=== PATIENT | female | born 1940 | race Caucasian/White ===

== ENCOUNTER → 2019-09-01 07:50 | Outpatient (CLI) | payer MEDICARE, SELFPAY ==
--- NOTE | ~2019-09-01 | US_ITS ---
EXAMINATION: US right upper quadrant EXAM DATE: 09/01/2019 08:23 INDICATION: Cholelithiasis. TECHNIQUE: Multiple grayscale and Doppler images of the abdomen right upper quadrant were obtained (b y a technologist who performed the scan) and subsequently reviewed. Comparison is made to prior exami nation from 08/19/2012. FINDINGS: The pancreatic head and body are normal in appearance. The pancreatic tail is not visualized. The l iver has normal echogenicity and contour. There is a 1.4 cm homogeneously hyperechoic liver lobe les ion posteriorly and inferiorly, appearance is characteristic for a hemangioma but not diagnostic of t hat. This was actually larger on prior study in 2013 at 1.8 cm. There is no evidence of intrahepatic biliary duct dilation. Portal venous flow was seen in the hepatopedal, normal direction and has nor mal Doppler waveform. No right-sided hydronephrosis. Common bile duct measures 4 mm, which is normal. The gallbladder wall is normal in thickness, with ex pected amount of distention. No sonographic evidence of pericholecystic fluid. There is cholelithia sis. Technologist performing exam reports patient did not demonstrate sonographic Arias's sign. P brooke note that this sign is less reliable in patients who have received pain medication. IMPRESSION: 1. Cholelithiasis. 2. Interval decrease in size of benign liver lesion. Reviewed, dictated and finalized at location B.
== END ==
PROVIDERS: PCP Family Medicine Adolescent Medicine; Visit Provider Family Medicine Adolescent Medicine
DX: K80.20 Calculus of gallbladder without cholecystitis without obstruction (principal)
CPT/HCPCS: 76705

== ENCOUNTER 2019-11-23 13:57 | Outpatient (CLI) | payer MEDICARE, SELFPAY ==
--- NOTE | 2019-11-23 14:02 | ECG_ITS ---
Measurements Intervals Thompson Rate: 73 P: 57 [place]: 139 QRS: 0 QRSD: 89 T: 37 QT: 377 QTc: 417 Interpretive Statements SINUS RHYTHM BASELINE ARTIFACT- I, II, III, AVR, AVL, AVF NORMAL ECG Electronically Signed On 11-23-2019 14:39:05 CDT by Carson Armendariz D.O.
[2019-11-23 15:09] LABS: Alanine Aminotransferase 14 U/L (4-35); Albumin Level 4.2 g/dL (3.5-5.1); Alkaline Phosphatase 69 U/L (38-126); Amylase 94 U/L (30-110); Aspartate Amino Transferase 22 U/L (14-36); Bilirubin,Total 0.4 mg/dL (0.2-1.3); Lipase 182 U/L (23-300)
== END 2019-11-23 13:58 | disposition home or self-care (01) ==
PROVIDERS: PCP Family Medicine Adolescent Medicine; Visit Provider Surgery
DX: K80.20 Calculus of gallbladder without cholecystitis without obstruction (principal); I10 Essential (primary) hypertension
CPT/HCPCS: 36415; 80076; 82150; 83690; 86850; 86900; 86901; 93005

== ENCOUNTER 2019-11-26 00:16 | Outpatient (CLI) | payer MEDICARE, SELFPAY ==
[2019-11-26 15:54] LABS: SARS-CoV-2 RNA PCR Negative
== END 2019-11-26 00:17 | disposition home or self-care (01) ==
LOC: ANHCOVIDDT 00:16
PROVIDERS: PCP Family Medicine Adolescent Medicine; Visit Provider Surgery
DX: Z01.812 Encounter for preprocedural laboratory examination (principal); Z20.828 Contact with and (suspected) exposure to other viral communicable diseases
CPT/HCPCS: 87635; C9803; U0003

== ENCOUNTER 2019-11-29 03:25 | Day surgery (SDC) | payer MEDICARE, SELFPAY ==
[2019-11-22 12:00] VITALS: BMI 27.4
[2019-11-29] VITALS (11 sets, daily range): BP systolic 129–173; BP diastolic 60–83; PULSE 51–73; RESP 13–20; TEMP 36.4–37.2; O2SAT 92–100
--- NOTE | 2019-11-29 12:30 | P.PNAN_ITS ---
Anes - Initial Pre Proc Eval Procedure: Operation Date: 11/29/19 13:30 Proposed Procedures p Laparoscopic Cholecystectomy, Possible Open - Hernan Calderon DO Date/Time: 11/29/19 12:30 Surgeon: Hernan Calderon DO Pre Op Diagnosis: symptomatic cholelithiasis Patient Data Age: 79 Gender: F Height: 5 ft 2 in Weight: 68.5 kg Allergies Allergy/AdvReac Type Severity Reaction Status Date / Time lidocaine Allergy Severe lost Verified 11/22/19 11:51 feeling procaine Allergy Severe lost Verified 11/22/19 11:51 feeling ciprofloxacin Allergy Unknown crawled Verified 11/22/19 11:51 out of skin metronidazole Allergy Unknown Unknown Verified 11/22/19 11:51 Quinolones Allergy Unknown Unknown Verified 11/22/19 11:51 Sulfa (Sulfonamide Allergy Unknown Hives Verified 11/22/19 11:51 Antibiotics) NOVACAINE Allergy Severe unknown Uncoded 11/22/19 11:51 Home Medications Medication Instructions Recorded Confirmed Type bimatoprost 0.01 % eye drops 1 drop EACH EYE HS 09/08/19 11/29/19 History brimonidine 0.2 %-timolol 0.5 % 1 drop LEFTEYE Q12H 09/08/19 11/22/19 History eye drops losartan 50 mg tablet 50 mg PO DAILY 09/08/19 11/22/19 History acetaminophen [Tylenol Extra 500 mg PO BID PRN 11/22/19 11/22/19 History Strength] ascorbic acid (vitamin C) [Vitamin 500 mg PO DAILY 11/22/19 11/22/19 History C] cholecalciferol (vitamin D3) 10 mcg PO DAILY 11/22/19 11/22/19 History Patient hx anesthesia problems: none Family hx anesthesia problems: none [facility] Social History Social History Smoking status: Never smoker Alcohol intake: current Substance use: never Anes - Eval Final PreProcedure Day of Procedure 11/29/19 12:30 Patient weight: normal Heart: regular rate and rhythm Lungs: clear to auscultation Airway: Mallampati scale class II Neurological: alert and oriented Last oral intake: >/= 8 hours ASA classification: II Emergent: no Anesthetic plan: proceed Anesthesia type and monitoring: general ETT and standard monitoring Informed Consent: The patient's anesthetic plan and its attendant risks and benefits were discussed with the patient/family/POA. Questions were solicited and answers provided to the satisfaction of the patient/family/POA.
--- NOTE | 2019-11-29 13:26 | PM.IMHP ---
H&P: HPI History of Present Illness Chief complaint: symptomatic cholelithiasis Narrative: Maria Dolores Rodrigues is a 79 year old female who presents for laparoscopic cholecystectomy. She has been experiencing intermittent symptoms for years. Gallbladder ultrasound showed evidence of cholelithiasis. 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 Family History Family History Father Family history of malignant neoplasm Cancer Mother High cholesterol Other Cerebrovascular accident Family history of cardiovascular disease Hypertension Social History Social History Smoking status: Never smoker Alcohol intake: current Substance use: never Meds Home Medications and Allergies Home Medications Medication Instructions Recorded Confirmed Type bimatoprost 0.01 % eye drops 1 drop EACH EYE HS 09/08/19 11/29/19 History brimonidine 0.2 %-timolol 0.5 % 1 drop LEFTEYE Q12H 09/08/19 11/22/19 History eye drops losartan 50 mg tablet 50 mg PO DAILY 09/08/19 11/22/19 History acetaminophen [Tylenol Extra 500 mg PO BID PRN 11/22/19 11/22/19 History Strength] ascorbic acid (vitamin C) [Vitamin 500 mg PO DAILY 11/22/19 11/22/19 History C] cholecalciferol (vitamin D3) 10 mcg PO DAILY 11/22/19 11/22/19 History Allergies Allergy/AdvReac Type Severity Reaction Status Date / Time lidocaine Allergy Severe lost Verified 11/22/19 11:51 feeling procaine Allergy Severe lost Verified 11/22/19 11:51 feeling ciprofloxacin Allergy Unknown crawled Verified 11/22/19 11:51 out of skin metronidazole Allergy Unknown Unknown Verified 11/22/19 11:51 Quinolones Allergy Unknown Unknown Verified 11/22/19 11:51 Sulfa (Sulfonamide Allergy Unknown Hives Verified 11/22/19 11:51 Antibiotics) NOVACAINE Allergy Severe unknown Uncoded 11/22/19 11:51 Vital Signs Vital Signs - 24 hr 11/29/19 12:30 Temperature 37.2 C Pulse Rate 67 Respiratory Rate 20 Blood Pressure 169/83 H Pulse Oximetry 98 Exam Const: General: alert; No acute distress Orientation/consciousness: patient oriented x3 Limitations: no limitations HENMT: Head: normocephalic and atraumatic Ears: hearing grossly normal bilaterally General nose exam: Normal external nose present and Normal nares present Mouth: Yes Normal oral and palatal mucosa present and Yes moist mucous membranes Eyes: General: appearance normal, both eyes and all related structures Conjunctivae: conjunctivae normal Sclera: sclerae normal Pupils: Equal, round and reactive pupils present EOM: EOMs intact bilaterally Neck: Neck: normal visual inspection, full ROM, no lymphadenopathy, supple and no JVD Lymphatic: no lymphadenopathy noted Chest: Chest palpation & inspection: normal inspection of the chest Resp: Effort & Inspection: normal respiratory effort and able to speak in complete sentences Auscultation: clear to auscultation bilaterally Percussion: percussion normal Cardio: Jugular venous distension: no JVD Rate: regular rate Rhythm: regular rhythm Heart sounds: S1 normal heart sound present and S2 normal heart sound present Peripheral pulses: Peripheral pulses 2+ throughout GI: Inspection: normal to inspection GI Palp: No abdominal tenderness, Yes Soft to palpation, No Guarding due to palpation present (GI), No Hernia present and No Rebound tenderness present Percussion: Yes normal to percussion Auscultation: normal bowel sounds : General: Yes no CVA tenderness Back/Spine/Pelvis: Back
[2019-11-29] MEDS: LACTATED RINGERS 1,000 ML 30 ML IV CONT (14:23)
--- NOTE | 2019-11-29 14:28 | PM.PROC ---
Procedure Note - Detailed Date of procedure: 11/29/19 Pre-op diagnosis: symptomatic cholelithiasis Post-op diagnosis: same Procedure performed: Laparoscopic Cholecystectomy Description of procedure: Procedure as well as risks, benefits, and alternatives were discussed with patient. Written consent was obtained and placed in chart prior to procedure. The patient was brought back to surgical suite. Patient was placed in supine position on operating table. Time-out was done to confirm patient and procedure. Patient was then intubated by the anesthesia department. Abdomen was prepped and draped in sterile fashion using chlorhexidine prep. 0.5% bupivacaine with epinephrine was infiltrated at each site of incision. A 5 millimeter incision was made near the umbilicus, and a 5 millimeter Optiview trocar was advanced through the abdominal layers under direct visualization. Once inside the abdominal cavity, carbon dioxide was insufflated to create a pneumoperitoneum. The camera was inserted and the abdomen was inspected. No immediate abnormalities were identified. The patient was placed in reverse Trendelenburg position and rotated slightly to the left. An 11 millimeter incision was made in the subxiphoid region, and an 11 millimeter trocar was inserted under direct visualization. Two 5 millimeter incisions were made in the right upper quadrant, and two 5 millimeter trocars were inserted under direct visualization. The gallbladder was identified and grasped at the fundus and retracted superiorly. It was then grasped at the infundibulum retracted laterally. Careful dissection around the neck of the gallbladder was performed using blunt dissection with a [place] grasper and hook electrocautery. The cystic duct was identified, and a window was created behind it. The cystic artery was also identified and a window was created behind it. The critical view of safety was identified, visualizing the cystic duct running directly into the neck of the gallbladder, and the cystic artery running directly into the wall of the gallbladder. A 5 millimeter clip security operations center analyst was then used to place 2 clips proximally and 1 clip distally on both the cystic duct and cystic artery. They were then both transected using endoscopic scissors. Once safely away from the tomy hepatitis, the gallbladder was dissected free from the liver bed using hook electrocautery. Hemostasis was achieved along the way. The gallbladder was removed completely and then removed through the subxiphoid port. The liver bed was then inspected. Hemostasis appeared adequate, and our clips appeared secure. The area was gently irrigated with sterile saline. No other abnormalities were seen. The patient was flattened out in bed, and 1 final inspection was made around the abdominal cavity. The subxiphoid port was removed, and a Jt [place] cone was used to approximate the fascia with an 0-Vicryl simple interrupted suture. The remaining ports were then removed under direct visualization, the camera was removed, and the pneumoperitoneum was released. The skin of the incisions was approximated using 4-0 Monocryl subcuticular sutures. Exofin glue was applied on top. The patient was then awakened from anesthesia, extubated, and transferred to recovery. Anesthesia: GETA and local (0.5% bupivicaine with epi) Surgeon: Hernan Calderon DO Estimated blood loss (mL): 5 Drains: No Packing: No Pathology: yes Complications: No immediate complications Condition: stable (Patient tolerated procedure well, and is currently resting comfortably in recovery.) Disposition: same day Findings: Laparoscopic cholecystectomy was performed. The gallbladder appeared dilated and contained multiple 1 cm stones. Cystic duct appeared normal in size. The gallbladder was removed and sent to the lab for pathology.
== END 2019-11-29 17:24 | disposition home or self-care (01) ==
PROVIDERS: PCP Family Medicine Adolescent Medicine; Visit Provider Surgery
PROC: 0FT44ZZ Resection of Gallbladder, Percutaneous Endoscopic Approach (ICD-10-PCS; CPT 47562; principal; 2019-11-29 13:30)
DX: K80.10 Calculus of gallbladder with chronic cholecystitis without obstruction (principal); I10 Essential (primary) hypertension; E78.00 Pure hypercholesterolemia, unspecified
CPT/HCPCS: 47562; 88304; A9270; J0131; J1100; J2405; J2704; J2710; J3010; J7030; J7120

== ENCOUNTER → 2020-05-11 12:00 | Outpatient (CLI) | payer MEDICARE, SELFPAY ==
--- NOTE | ~2020-05-11 | US_ITS ---
EXAMINATION: US soft tissue head and neck DATE: 05/11/2020 12:18 INDICATION: Left neck focal swelling and pain. TECHNIQUE: Multiple grayscale and Doppler ultrasound images of the neck were obtained. COMPARISON: None FINDINGS: There is no abnormal mass or lymphadenopathy in the patient's area of concern in left neck. IMPRESSION: 1. No abnormal mass or lymphadenopathy in the patient's area of concern in left neck. Reviewed, dictated and finalized at [facility]
== END ==
PROVIDERS: PCP Family Medicine Adolescent Medicine; Visit Provider Family Medicine Adolescent Medicine
DX: R51.9 Headache, unspecified (principal)
CPT/HCPCS: 76536

== ENCOUNTER 2021-02-12 20:53 | Emergency (ER) | payer MEDICARE, SELFPAY ==
--- NOTE | ~2021-02-12 | CT_ITS ---
EXAMINATION: CT abdomen pelvis wo con DATE: 02/12/2021 23:56 INDICATION: Abdominal pain TECHNIQUE: Computed tomography (CT) of the abdomen and pelvis was performed without intravenous contr ast. Automated exposure control and iterative reconstruction technique were employed. Exam dose: 464 .74 mGy-cm total exam DLP. COMPARISON: 09/01/2019 right upper quadrant abdominal ultrasound 07/22/2015 [facility]A chest abdomen pelvis 07/19/2011 CT abdomen pelvis FINDINGS: The lung bases are clear of infiltrate or consolidation. Normal heart size. No pericardial or pleural effusion. Status post cholecystectomy. Stable subtle hypoattenuating lesion of the medial aspect of the right lower hepatic lobe, previously attributed to hemangioma (07/22/2015 [facility] chest abdomen pelvis). No interval hepatic space-occupying m ass lesion is detected. No bile duct or pancreatic duct dilatation. No pancreatic mass lesion or calc ification. Duodenal diverticulum. Scattered splenic calcified granulomas. No splenomegaly. Parapelvic left renal cysts Parapelvic left renal cysts. No urinary tract calculus or obstruction. The urinary bladder is unremar kable. Uterus and adnexal areas are unremarkable. There is atherosclerotic calcification of the abdominal aorta but no aneurysm. No intraperitoneal or retroperitoneal or pelvic mass lesion or adenopathy or ascites. Diverticulosis of the colon; no CT evidence of diverticulitis. There are fluid containing small bowel segments. There are colonic air-fluid levels, which is not normal unless there have been any recent enemas. No bowel obstruction, bowel wall thickening, pneumatosis or intraperitoneal free air is detec thierry. Small fat-containing umbilical hernia. Scoliosis and degenerative changes of the lumbar spine including multilevel degenerative disc disease , especially at L2-3, L4-5 and L5-S1. Degenerative change at the apophyseal joints with associated gr salome 1 anterolisthesis at L4-5. IMPRESSION: Fluid-filled small bowel segments and air-fluid levels of the colon, suggesting enteroco litis Normal appendix Diverticulosis of the colon; no CT evidence of diverticulitis Status post cholecystectomy Stable probable right hepatic hemangioma Reviewed, dictated and finalized at [facility]. Reviewed, dictated and finalized at [facility]. IMPRESSION: Fluid-filled small bowel segments and air-fluid levels of the colo n, suggesting enterocolitis Normal appendix Diverticulosis of the colon; no CT evidence of diverticulitis Status post cholecystectomy Stable probable right hepatic hemangioma
[2021-02-12 21:03] VITALS: BP 165/98; PULSE 79; RESP 16; TEMP 36.9; O2SAT 98
[2021-02-12 21:51] LABS: Basophils Percent Auto 0.4 % (0.2-1.2); Eosinophils Absolute Auto 0.1 K/mm3 (0-0.3); Eosinophils Percent Auto 0.8 % (0-4.4); Hematocrit 47.8 % (37.0-47.0); Hemoglobin 15.5 g/dL (12.0-15.0); Immature Granulocyte Absolute 0.02 K/mm3 (0.00-0.031); Immature Granulocyte Percent A 0.2 % (0-0.5); Lymphocytes Absolute Auto 1.25 K/mm3 (0.9-3.2); Lymphocytes Percent Auto 13.8 % (18.3-44.2); Mean Corpuscular HGB Conc 32.4 g/dl (32-36); Mean Corpuscular Hemoglobin 29.9 pg (26-34); Mean Corpuscular Volume 92.1 fl (80-100); Monocytes Absolute Auto 0.4 K/mm3 (0.1-0.6); Monocytes Percent Auto 3.9 % (2.6-8.5); Neutrophils Absolute Auto 7.4 K/mm3 (1.3-6.7); Neutrophils Percent Auto 80.9 % (45.5-73.1); Platelet Count Result 255 k/mm3 (150-375); Red Blood Count 5.19 M/mm3 (4.2-5.4); Red Cell Distribution Width 12.6 % (11.5-14.5); White Blood Count 9.1 K/mm3 (4.5-10.0)
[2021-02-12 22:03] LABS: Alanine Aminotransferase 23 U/L (4-35); Albumin Level 4.5 g/dL (3.5-5.1); Alkaline Phosphatase 65 U/L (38-126); Anion Gap 11 mmol/L (8-16); Aspartate Amino Transferase 31 U/L (14-36); Bilirubin,Total 0.6 mg/dL (0.2-1.3); Blood Urea Nitrogen 11 mg/dL (7-17); Calcium 9.6 mg/dL (8.4-10.2); Carbon Dioxide 25 mmol/L (22-30); Chloride 104 mmol/L (98-107); Estimated CRCL calculation 57 ml/min; Estimated Glomerular Filt Rate > 60; Glucose 109 mg/dL (65-110); Lipase 203 U/L (23-300); Potassium 4.2 mmol/L (3.4-5.0); Sodium 140 mmol/L (137-145)
[2021-02-12 22:15] LABS: Add Urine Microscopic? YES; Appearance Urine Clear (Clear); Bilirubin Urine Negative (Negative); Blood Urine 1+ (Negative); Color Urine Colorless (Yellow); Glucose Urine UA Negative (Negative); Ketones Urine Negative (Negative); Leukocyte Esterase Ur Trace LEU/UL (Negative); Mucus Urine Rare /lpf; Nitrate Urine Negative (Negative); Protein Urine Negative (Negative); RBC Urine 0-2 /hpf (0-2); Squamous Epithelial Cell Urine Occasional /hpf (Few); Transitional Epi Cells Urine Rare /hpf (None Seen); Urobilinogen Urine Negative mg/dL (<2.0); WBC Urine 0-3 /hpf
[2021-02-12 22:16] LABS: Specific Grav Ur 1.003 (1.001-1.035)
[2021-02-12 23:01] VITALS: BP 162/89; PULSE 88; RESP 16; O2SAT 98
--- NOTE | 2021-02-12 23:35 | ED.ABDPAIN ---
HPI - Abdominal Pain General Chief Complaint: Abdominal Pain Stated Complaint: no bowel movement for 10 days Time Seen by Provider: 02/12/21 23:30 Source: patient Mode of arrival: ambulatory Limitations: no limitations History of Present Illness HPI narrative: Patient is an 80-year-old female complaining of being constipated for the past 10 days, patient did have a bowel movement tonight but states that it was all loose. Patient also complaining of diffuse abdominal pain, mild which she attributes to her constipation. Patient denies any chest pain, shortness of breath, nausea, vomiting, fever or chills. Related Data Home Medications Medication Instructions Recorded Confirmed bimatoprost 0.01 % eye drops 1 drop EACH EYE HS 09/08/19 12/31/19 brimonidine 0.2 %-timolol 0.5 % 1 drop LEFTEYE Q12H 09/08/19 12/31/19 eye drops losartan 50 mg tablet 50 mg PO DAILY 09/08/19 12/31/19 acetaminophen [Tylenol Extra 500 mg PO BID PRN 11/22/19 12/31/19 Strength] ascorbic acid (vitamin C) [Vitamin 500 mg PO DAILY 11/22/19 12/31/19 C] cholecalciferol (vitamin D3) 10 mcg PO DAILY 11/22/19 12/31/19 Allergies Allergy/AdvReac Type Severity Reaction Status Date / Time lidocaine Allergy Severe lost Verified 02/12/21 23:08 feeling procaine Allergy Severe lost Verified 02/12/21 23:08 feeling ciprofloxacin Allergy Unknown crawled Verified 02/12/21 23:08 out of skin metronidazole Allergy Unknown Unknown Verified 02/12/21 23:08 Quinolones Allergy Unknown Unknown Verified 02/12/21 23:08 Sulfa (Sulfonamide Allergy Unknown Hives Verified 02/12/21 23:08 Antibiotics) NOVACAINE Allergy Severe unknown Uncoded 02/12/21 23:08 Review of Systems Review of Systems: All systems reviewed & are unremarkable except as noted in HPI and below Constitutional: Constitutional: Denies body ache(s), Denies chills, Denies excessive sweating, Denies fatigue, Denies fever(s), Denies headache(s), Denies lethargy, Denies malaise, Denies weakness and Denies weight loss Eyes: Eyes: Denies blurry vision, Denies change in vision and Denies loss of vision ENT: Denies dizziness, Denies ear discharge, Denies headache(s), Denies lip swelling, Denies epistaxis, Denies nasal congestion, Denies neck pain, Denies throat swelling and Denies tongue swelling Cardiovascular: Cardiovascular: Denies chest pain, Denies chest pain at rest, Denies chest pain with activity, Denies diaphoresis, Denies rapid heart rate, Denies edema, Denies irregular heart rhythm, Denies lightheadedness, Denies palpitations, Denies dyspnea and Denies dyspnea on exertion Respiratory: Respiratory: Denies chest congestion, Denies cough, Denies hemoptysis, Denies dyspnea and Denies dyspnea on exertion Gastrointestinal: Gastrointestinal: Denies melena, Denies hematochezia, Denies diarrhea, Denies nausea, Denies vomiting and Denies hematemesis Musculoskeletal: Musculoskeletal: Denies abnormal gait, Denies deformity, Denies joint swelling, Denies limited range of motion, Denies neck pain and Denies numbness Neurologic: Denies Abnormal speech present, Denies abnormal gait, Denies confusion, Denies dizziness, Denies headache(s), Denies focal weakness, Denies loss of vision, Denies numbness, Denies Other visual disturbances, Denies Sensory deficit (Neuro) and Denies weakness Psychiatric: Psychiatric: Denies confusion, Denies depression, Denies auditory hallucinations, Denies homicidal ideation and Denies suicidal ideation Endocrine: Endocrine: Denies cold intolerance, Denies excessive sweating, Denies fatigue, Denies heat intolerance and Denies palpitations Hematologic/Lymphatic: Hematologic/Lymphatic: Denies easy bleeding and Denies easy bruising Allergic/Immunologic: Allergic/Immunologic: Denies lip swelling, Denies throat swelling and Denies tongue swelling [facility] Past Medical History Medical History (Updated 02/13/21 @ 01:15 by Travis Charles MD) High blood cholesterol HTN (hypertens
--- NOTE | 2021-02-12 23:45 | PC.NURSE ---
Pt to CT via stretcher at this time.
[2021-02-13] MEDS: SODIUM CHLORIDE 0.9% IV 1,000 ML 999 ML IV CONT (00:12)
[2021-02-13 00:33] VITALS: BP 162/84; PULSE 66; RESP 16; O2SAT 99
[2021-02-13 01:46] VITALS: BP 159/90; PULSE 72; RESP 16; O2SAT 100
== END 2021-02-13 01:49 | disposition home or self-care (01) ==
PROVIDERS: Emergency Medicine; Emergency Provider Emergency Medicine; PCP Family Medicine Adolescent Medicine
DX: K52.9 Noninfective gastroenteritis and colitis, unspecified (principal); K59.00 Constipation, unspecified; E78.00 Pure hypercholesterolemia, unspecified; I10 Essential (primary) hypertension; K57.90 Diverticulosis of intestine, part unspecified, without perforation or abscess without bleeding; R93.2 Abnormal findings on diagnostic imaging of liver and biliary tract
CPT/HCPCS: 36415; 74176; 80053; 81001; 83690; 85025; 96360; 99284; J7030

== ENCOUNTER 2021-02-16 13:27 | Observation (INO) | payer MEDICARE, SELFPAY ==
[2021-02-16] VITALS (9 sets, daily range): BP systolic 102–176; BP diastolic 58–91; PULSE 63–78; RESP 14–16; TEMP 36–37.2; O2SAT 98–100; BMI 26.9
--- NOTE | ~2021-02-16 | XR_ITS ---
EXAMINATION: XR chest 2V EXAM DATE: 02/16/2021 13:50 INDICATION: Central sharp chest pain. TECHNIQUE: Frontal and lateral projections of the chest obtained and reviewed. Comparison is made to prior examination from 09/12/2018. FINDINGS: The lungs are clear. There are no pleural effusions. The cardiomediastinal silhouette is within normal limits. There is no pneumothorax suspected. The bones and soft tissues are unremarkab le. . There are cholecystectomy clips. IMPRESSION: No acute cardiopulmonary findings. Reviewed, dictated and finalized at location A.
--- NOTE | 2021-02-16 13:38 | ECG_ITS ---
Measurements Intervals [place] Rate: 77 P: 28 WI: 144 QRS: 1 QRSD: 89 T: 32 QT: 368 QTc: 417 Interpretive Statements SINUS RHYTHM NORMAL ECG Electronically Signed On 02-16-2021 14:07:29 CDT by Carson Armendariz D.O.
[2021-02-16] MEDS: ASPIRIN 81 MG CHEWABLE TABLET 324 MG PO (14:04)
--- NOTE | 2021-02-16 14:12 | ED.CHESTPAIN ---
HPI - Chest Pain General Chief Complaint: Chest Pain Stated Complaint: CP Time Seen by Provider: 02/16/21 13:49 Source: patient, family and RN notes reviewed Limitations: no limitations History of Present Illness HPI narrative: Patient is 80 years old white female presented to the ED with her complaining of intermittent left chest pain, sharp, tender to touch, radiating all the way to the mid of upper back. Started 45 minutes prior to arrival to the emergency room. Patient was in her way to a . Patient lost her [place] dog 3 weeks ago. Patient had constipation 1 week ago been taken MiraLAX and Senokot lately with increase of bowel movement lately. Patient denies any fever, chills, nausea, vomiting, diarrhea, constipation, shortness of breath. Patient is fully vaccinated for COVID-19. Patient had history of hypertension. Related Data Home Medications Medication Instructions Recorded Confirmed bimatoprost 0.01 % eye drops 1 drop EACH EYE HS 09/08/19 12/31/19 brimonidine 0.2 %-timolol 0.5 % 1 drop LEFTEYE Q12H 09/08/19 12/31/19 eye drops losartan 50 mg tablet 50 mg PO DAILY 09/08/19 12/31/19 acetaminophen [Tylenol Extra 500 mg PO BID PRN 11/22/19 12/31/19 Strength] ascorbic acid (vitamin C) [Vitamin 500 mg PO DAILY 11/22/19 12/31/19 C] cholecalciferol (vitamin D3) 10 mcg PO DAILY 11/22/19 12/31/19 Allergies Allergy/AdvReac Type Severity Reaction Status Date / Time lidocaine Allergy Severe lost Verified 02/16/21 13:45 feeling procaine Allergy Severe lost Verified 02/16/21 13:45 feeling ciprofloxacin Allergy Unknown crawled Verified 02/16/21 13:45 out of skin metronidazole Allergy Unknown Unknown Verified 02/16/21 13:45 Quinolones Allergy Unknown Unknown Verified 02/16/21 13:45 Sulfa (Sulfonamide Allergy Unknown Hives Verified 02/16/21 13:45 Antibiotics) NOVACAINE Allergy Severe unknown Uncoded 02/16/21 13:45 Review of Systems Review of Systems: CONSTITUTIONAL: Denies fever, chills, or sweats. EYES: Denies visual changes, redness, or discharge. ENT: Denies rhinorrhea, congestion, sore throat, or otalgia. CARDIOVASCULAR: Denies chest pain, palpitations, or edema. RESPIRATORY: Denies cough or dyspnea. GASTROINTESTINAL: Denies abdominal pain, nausea, vomiting, or diarrhea. GENITOURINARY: Denies dysuria or hematuria. SKIN: Denies rash or itching. MUSCULOSKELETAL: Denies back pain, joint pain, or myalgia. NEUROLOGIC: Denies headache, numbness, or weakness. PSYCHIATRIC: Denies anxiety or depression. [facility] Past Medical History Medical History (Updated 02/16/21 @ 14:23 by Olegario Turner MD) High blood cholesterol HTN (hypertension) Surgical History Surgical History H/O knee surgery History of laparoscopic cholecystectomy 11/29/19 Tumor of ovary removed in her 20s Family History Family History Father Family history of malignant neoplasm Cancer Mother High cholesterol Other Cerebrovascular accident Family history of cardiovascular disease Hypertension Social History Social History Smoking status: Never smoker Alcohol intake: current Substance use: never Gender identity (if verbalized by the patient): Female Exam Narrative: General appearance: Well-developed, well-nourished Skin: Normal color Head: Normocephalic, nontraumatic Eyes: Clear conjunctiva ENT: Oropharynx normal, ears normal, nose normal Neck: Supple, nontender Chest and respiratory: Airway patent, no respiratory distress, no accessory muscle use Heart: Regular rate/rhythm Abdomen: Soft, nontender, no organomegaly, quiet bowel sounds Vascular: Normal peripheral pulses, normal capillary refill. Musculoskeletal: Normal range of motion, nontender back Neurologic: Alert and oriented ?3, NUTRITION SERVICES MANAGER is normal as tested, no gross marita
[2021-02-16 14:41] LABS: Basophils Percent Auto 0.4 % (0.2-1.2); Eosinophils Absolute Auto 0.1 K/mm3 (0-0.3); Hemoglobin 14.6 g/dL (12.0-15.0); Immature Granulocyte Absolute 0.04 K/mm3 (0.00-0.031); Immature Granulocyte Percent A 0.4 % (0-0.5); Lymphocytes Absolute Auto 0.99 K/mm3 (0.9-3.2); Mean Corpuscular HGB Conc 33.2 g/dl (32-36); Mean Corpuscular Hemoglobin 30.4 pg (26-34); Mean Corpuscular Volume 91.5 fl (80-100); Mean Platelet Volume 9.9 fl (7.4-10.4); Monocytes Absolute Auto 0.4 K/mm3 (0.1-0.6); Monocytes Percent Auto 4.5 % (2.6-8.5); Neutrophils Absolute Auto 7.5 K/mm3 (1.3-6.7); Neutrophils Percent Auto 82.7 % (45.5-73.1); Platelet Count Result 217 k/mm3 (150-375); Red Blood Count 4.81 M/mm3 (4.2-5.4); Red Cell Distribution Width 12.3 % (11.5-14.5)
[2021-02-16 14:50] LABS: Prothrombin Time 12.7 Seconds (11.1-14.7)
[2021-02-16 14:51] LABS: Partial Thromboplastin Time 27.9 SECONDS (22.3-36.8)
[2021-02-16 14:52] LABS: Anion Gap 7 mmol/L (8-16); Blood Urea Nitrogen 10 mg/dL (7-17); Calcium 9.5 mg/dL (8.4-10.2); Carbon Dioxide 29 mmol/L (22-30); Chloride 96 mmol/L (98-107); Estimated CRCL calculation 57 ml/min; Estimated Glomerular Filt Rate > 60; Glucose 108 mg/dL (65-110); Potassium 3.9 mmol/L (3.4-5.0); Sodium 132 mmol/L (137-145)
[2021-02-16 15:04] LABS: Troponin I < 0.012 ng/mL (0.000-0.034)
--- NOTE | 2021-02-16 15:09 | PM.IMHP ---
H&P: HPI History of Present Illness Date/Time: 02/16/21 15:09Thiiveth is a 80-year-old female patient who has no prior history of any coronary artery disease. The patient stated that she had a stress test many years ago and it was negative. The patient was checked out for chest pain in 2019 and was found to be negative at that time. Today the patient was on her way to a for her [place]. The patient lost her [place] 3 weeks ago and she has been heart broken since. The patient's chest pain started 45 minutes prior to arrival to the emergency room. The pain only lasted for few seconds and it came and went. Did not radiate down her arm but it radiated to her upper back. She denies any diaphoresis or nausea vomiting. The patient has reproducible pain to her mid sternum. She has also been complaining of having constipation for the last week and a half. She has tried multiple laxatives since still is having difficulty having a normal bowel movement. The patient had very small bowel movement yesterday x3. The patient is fully vaccinated for COVID-19. The patient has a history of having hypertension and continues to take her medication without difficulty. First troponin is negative. EKG was read as sinus rhythm normal EKG. Patient is being admitted for observation status on 02/16/2021. Chief Complaint: Chest pain Review of Systems Review of Systems: All systems reviewed & are unremarkable except as noted in HPI and below Constitutional: Constitutional: Reports as per HPI and Reports no additional constitutional complaints Eyes: Eyes: Reports as per HPI and Reports no additional eye complaints ENT: Reports system reviewed and no additional complaints, except as documented and Reports Normal hearing present Cardiovascular: Cardiovascular: Reports no additional cardiovascular complaints Respiratory: Respiratory: Reports no additional respiratory complaints and Reports no additional respiratory complaints Gastrointestinal: Gastrointestinal: Reports as per HPI and Reports no additional gastrointestinal complaints Musculoskeletal: Musculoskeletal: Reports no additional musculoskeletal complaints Integumentary/Breasts: Skin/Breast: Reports system reviewed and no additional complaints, except as docu and Reports as per HPI Neurologic: Reports system reviewed and no additional complaints, except as documented, Reports as per HPI and Reports Normal hearing present Psychiatric: Psychiatric: Reports no additional psychiatric complaints and Reports as per HPI Endocrine: Endocrine: Reports no additional endocrine complaints Hematologic/Lymphatic: Hematologic/Lymphatic: Reports no additional hematologic/lymphatic complaints Allergic/Immunologic: Allergic/Immunologic: Reports no additional allergic/immunologic complaints PMFSH Past Medical History Medical History (Updated 02/16/21 @ 15:19 by Gloria Chawla NP) Glaucoma High blood cholesterol HTN (hypertension) Surgical History Surgical History H/O knee surgery History of laparoscopic cholecystectomy 11/29/19 Tumor of ovary removed in her 20s Family History Family History Father Family history of malignant neoplasm Cancer Mother High cholesterol Other Cerebrovascular accident Family history of cardiovascular disease Hypertension Social History Social History (Updated 02/16/21 @ 15:14 by Gloria Chawla NP) Social History: The patient is and her is a durable power civil rights attorney for healthcare. The patient has 3 sons. She is listed as a full code. 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 Lifelong nonsmoker. She is alert alcohol or illicit drugs. Smoking status: Never smoker Alcohol intake: current Substance use: never Living arrangements: with family Occupation/Education: retired Gender identity (if
[2021-02-16] MEDS: METOPROLOL SUCCINATE EXT REL 25 MG TABCR PO (15:27)
[2021-02-16] MEDS: BISACODYL 10 MG SUPPOSITORY RECTAL (15:32)
--- NOTE | 2021-02-16 16:41 | ADMGEN ---
This patient, Maria Dolores Rodrigues, was admitted to IMU Room 202- at 1639 on 02/16/2021. Patient/family oriented to hospital policies and general routines including ID bracelet, bed and alarms, visiting hours, pain management, procedures, bathroom and other care routines, personal items, smoking policy, room service/diet, and visiting hours. Information on how to activate the Rapid Response Team has been discussed. Patient/Family are encouraged to report perceived risks to care and to ask questions if they do not understand what they are told or what they should do.
[2021-02-16 17:35] LABS: Troponin I < 0.012 ng/mL (0.000-0.034)
[2021-02-16 19:38] LABS: Troponin I < 0.012 ng/mL (0.000-0.034)
[2021-02-16 19:39] LABS: Troponin I < 0.012 ng/mL (0.000-0.034)
--- NOTE | 2021-02-16 22:50 | PHAR ---
Home eye drops: COMBIGAN (brimonidine tartrate 0.2% / timolol maleate 0.5%) opthalmic solution 1 drop in left eye q12hr and Lumigan (brimatoprost opthalmic solution) 0.01% 1 DROP IN EACH EYE HS Verified in pharmacy and sent back to floor(IMU) for patient use.
[2021-02-17] VITALS (14 sets, daily range): BP systolic 97–152; BP diastolic 61–81; PULSE 56–77; RESP 16–18; TEMP 36.2–36.9; O2SAT 98–100
[2021-02-17 08:19] LABS: Basophils Percent Auto 0.5 % (0.2-1.2); Eosinophils Absolute Auto 0.2 K/mm3 (0-0.3); Hematocrit 44.9 % (37.0-47.0); Hemoglobin 14.6 g/dL (12.0-15.0); Immature Granulocyte Absolute 0.02 K/mm3 (0.00-0.031); Immature Granulocyte Percent A 0.3 % (0-0.5); Lymphocytes Absolute Auto 1.26 K/mm3 (0.9-3.2); Lymphocytes Percent Auto 16.6 % (18.3-44.2); Mean Corpuscular HGB Conc 32.5 g/dl (32-36); Mean Corpuscular Hemoglobin 29.8 pg (26-34); Mean Corpuscular Volume 91.6 fl (80-100); Mean Platelet Volume 10.2 fl (7.4-10.4); Monocytes Absolute Auto 0.3 K/mm3 (0.1-0.6); Neutrophils Absolute Auto 5.8 K/mm3 (1.3-6.7); Neutrophils Percent Auto 76.6 % (45.5-73.1); Platelet Count Result 243 k/mm3 (150-375); Red Cell Distribution Width 12.6 % (11.5-14.5); White Blood Count 7.6 K/mm3 (4.5-10.0)
[2021-02-17 08:42] LABS: Alanine Aminotransferase 21 U/L (4-35); Albumin Level 4.2 g/dL (3.5-5.1); Alkaline Phosphatase 59 U/L (38-126); Anion Gap 7 mmol/L (8-16); Aspartate Amino Transferase 30 U/L (14-36); Bilirubin,Total 0.5 mg/dL (0.2-1.3); Blood Urea Nitrogen 9 mg/dL (7-17); Calcium 9.1 mg/dL (8.4-10.2); Carbon Dioxide 27 mmol/L (22-30); Chloride 104 mmol/L (98-107); Estimated CRCL calculation 58 ml/min; Estimated Glomerular Filt Rate > 60; Glucose 132 mg/dL (65-110); Magnesium 2.3 mg/dL (1.6-2.3); Potassium 3.8 mmol/L (3.4-5.0); Sodium 138 mmol/L (137-145)
[2021-02-17] MEDS: ENOXAPARIN 40 MG/0.4 ML SYRINGE SUB-Q (08:45)
[2021-02-17] MEDS: ASCORBIC ACID 500 MG TABLET PO (08:49)
[2021-02-17] MEDS: polyethylene glycoL 3350 17 GM POWD.PACK PO ×2 (08:53→13:30)
[2021-02-17] MEDS: CHOLECALCIFEROL 400 UNITS TABLET (VIT D) PO (08:54)
[2021-02-17] MEDS: LOSARTAN POTASSIUM 50 MG TABLET PO (08:55)
[2021-02-17] MEDS: ASPIRIN 81 MG CHEWABLE TABLET PO (08:55)
--- NOTE | 2021-02-17 09:08 | ECG_ITS ---
Measurements Intervals [place] Rate: 65 P: 60 WY: 158 QRS: 1 QRSD: 88 T: 27 QT: 386 QTc: 402 Interpretive Statements SINUS RHYTHM NORMAL ECG Electronically Signed On 02-17-2021 9:38:44 CDT by Carson Armendariz D.O.
--- NOTE | 2021-02-17 11:02 | PM.IMPN ---
Progress Note: A&P Assessment and Plan (1) Chest pain: Qualifiers: Chest pain type: unspecified Qualified Code(s): R07.9 - Chest pain, unspecified Code(s): R07.9 - Chest pain, unspecified Status: Acute Assessment and Plan: Unclear etiology. Patient has negative troponin x2, and nonischemic EKG, indicating low level of suspicion for ACS. No history of blood clots, no hypoxia, or lower leg swelling, and Wells score is 0, so minimal suspicion for pulmonary embolism. No infectious symptoms or leukocytosis. Pain is not reproducible, lowering suspicion for a costochondritis. Not associated with food or other GI symptoms. Blood pressure, low acuity, nonradiating pain, intermittent in nature, all making dissection less likely. Distant heart sounds on auscultation, and diffuse concave ST elevation on EKG, raising suspicion for pericarditis. Appreciate Cardiology input. (2) HTN (hypertension): Code(s): I10 - Essential (primary) hypertension Status: Chronic Assessment and Plan: Continue with losartan. (3) Glaucoma: Code(s): H40.9 - Unspecified glaucoma Status: Chronic Assessment and Plan: Continue with home eye drops. (4) Constipation: Code(s): K59.00 - Constipation, unspecified Status: Acute Assessment and Plan: Suppository now and continue with MiraLax. (5) Hemangioma: Code(s): D18.00 - Hemangioma unspecified site Status: Acute Assessment and Plan: Right hepatic hemangioma seen on abdominal CT, will need outpatient follow-up. And potentially serial imaging. Time Spent With Patient Time with patient: less than 15 minutes Subjective Date/time seen: 02/17/21 11:02 No acute medical complaints, complains of intermittent sharp chest pain, not reproducible on physical exam. Review of Systems Review of Systems: All systems reviewed & are unremarkable except as noted in HPI and below Exam Const: General: no acute distress Neck: Neck: no JVD Resp: Auscultation: clear to auscultation bilaterally Cardio: Rate: regular rate Rhythm: regular rhythm Other: Distant heart sounds Objective Data Vital Signs Vital Signs: Vital Signs - 24 hr 02/16/21 13:40 02/16/21 15:01 02/16/21 15:27 Temperature 98.2 F Pulse Rate 78 73 78 Respiratory Rate 16 16 Blood Pressure 176/91 H 154/83 H Pulse Oximetry 100 100 02/16/21 16:31 02/16/21 16:51 02/16/21 18:00 Temperature 99 F Pulse Rate 78 71 73 Respiratory Rate 16 14 Blood Pressure 148/76 H 146/75 H Pulse Oximetry 100 98 02/16/21 20:00 02/16/21 22:00 02/16/21 23:49 Temperature 97.6 F 96.8 F L Pulse Rate 73 68 69 Respiratory Rate 16 16 Blood Pressure 132/71 102/58 L Pulse Oximetry 99 100 02/17/21 00:00 02/17/21 02:00 02/17/21 04:00 Temperature 97.2 F L Pulse Rate 67 64 75 Respiratory Rate 16 Blood Pressure 108/68 Pulse Oximetry 100 99 02/17/21 06:00 02/17/21 08:00 02/17/21 08:52 Temperature 97.4 F L Pulse Rate 62 64 61 Respiratory Rate 16 Blood Pressure 97/61 L Pulse Oximetry 98 02/17/21 10:00 Temperature Pulse Rate 74 Respiratory Rate Blood Pressure Pulse Oximetry Intake/Output Intake/Output: Intake & Output 02/14/21 02/15/21 02/16/21 02/17/21 23:59 23:59 23:59 23:59 Intake Total 240 240 Output Total 700 Balance 240 -460 Meds/Results Medications: Active Medications Generic Name Dose Route Start Last Admin Trade Name Freq PRN Reason Stop Dose Admin Ascorbic Acid 500 mg 02/17/21 09:00 02/17/21 08:49 Ascorbic Acid 500 Mg Tablet PO 500 mg DAILY [facility] Administration Aspirin 81 mg 02/17/21 08:00 02/17/21 08:55 Aspirin 81 Mg Chewable Tablet PO 81 mg DAILY@0800 [facility] Administration Bisacodyl 10 mg 02/16/21 15:06 Bisacodyl 10 Mg Suppository RECTAL QAM PRN Constipation Enoxaparin Sodium 40 mg 02/17/21 09:00 02/17/21 08:45 Enoxaparin 40 Mg/0.4
--- NOTE | 2021-02-17 11:02 | PM.CNCAR ---
Assessment and Plan Additional Plan This is an 80-year-old woman with momentary brief episodes of jabbing chest pain yesterday. The symptoms are very atypical of and in my opinion not at all suggestive of myocardial ischemia. She has no exertional symptoms to suggest angina leading up to this and there is no evidence of acute coronary syndrome by ECG and serial biomarkers. At this point I do not believe any further cardiac investigation is necessary and for my perspective she can be discharged. I will not plan on arranging outpatient follow-up of this since it is very atypical. Thank you for asking me to see her in consultation. Bola Sepulveda MD [facility] History of Present Illness History of Present Illness Consult date/time: 02/17/21 11:02 Consult reason: chest pain Reason For Visit: chest pain Narrative: This is a pleasant 80-year-old lady that I am seeing this morning at the request of the hospitalist for assistance with the evaluation and management of chest pain. She is not known to have any cardiac problems prior to this and I have not seen her in the past as far as I know. She was on her way to the of a cousin yesterday afternoon when she began to experience episodes of chest pain she had a couple more of these episodes at the home and so she was brought to the hospital by her for evaluation. She describes these episodes as a brief momentary jabbing sensation in the left precordial area that at times would cause a momentary jabbing sensation in the thoracic spinal region as well. Symptoms were very momentary in brief there were not associated with any pressure heaviness on the chest there were not associated by any diaphoresis nausea vomiting or shortness of breath. The pain was very brief and momentary in nature. She came to the emergency room where her examination, ECG and troponin levels were negative. Despite all of that in the very atypical history she was admitted to the hospital for observation overnight. She has had 3- troponin samples done. Her telemetry is negative and follow-up ECGs this morning remain normal. She does not have any a history of exertional chest pain she does not exercise with any regularity but she does lead an active lifestyle and has never noticed exertional chest pain pressure or heaviness. She had a [place] dog which a couple of weeks ago but prior to that she had walker dog with regularity and she did not have any chest pain with activities like that. Review of Systems Constitutional: Constitutional: Reports no additional constitutional complaints Eyes: Eyes: Reports no additional eye complaints ENT: Reports system reviewed and no additional complaints, except as documented Cardiovascular: Cardiovascular: Reports as per HPI Respiratory: Respiratory: Reports no additional respiratory complaints Gastrointestinal: Gastrointestinal: Reports as per HPI Comments: Patient reports recent did difficulty with worsening of chronic constipation Musculoskeletal: Musculoskeletal: Reports no additional musculoskeletal complaints Neurologic: Reports system reviewed and no additional complaints, except as documented Endocrine: Endocrine: Reports no additional endocrine complaints Hematologic/Lymphatic: Hematologic/Lymphatic: Reports no additional hematologic/lymphatic complaints Allergic/Immunologic: Allergic/Immunologic: Reports no additional allergic/immunologic complaints [facility] Past Medical History Medical History (Updated 02/16/21 @ 15:19 by Gloria Chawla NP) Glaucoma High blood cholesterol HTN (hypertension) Surgical History Surgical History H/O knee surgery History of laparoscopic cholecystectomy 11/29/19 Tumor of ovary removed in her 20s Family History Family History Father Family history of malignant neoplasm Cancer Mother High milan
[2021-02-17] MEDS: BISACODYL 10 MG SUPPOSITORY RECTAL (15:15)
[2021-02-17] MEDS: LACTULOSE 20 GM/30 ML UDC 40 GM PO (17:39)
--- NOTE | 2021-02-17 18:47 | PC.NURSE ---
This patient, Maria Dolores Rodrigues, was transferred to [ [id number] ] on 02/17/21 at 1840. Personal belongings sent with patient. Report given to [ MAURICE Topete. ]. Appropriate documentation sent with patient.
[2021-02-17] MEDS: NAPROXEN 250 MG TABLET PO (21:49)
[2021-02-18] VITALS: PULSE 63
--- NOTE | 2021-02-18 00:03 | PM.DS ---
DS: Admitting Diagnosis Admitting Diagnosis chest pain DS: Discharge Diagnosis Discharge Diagnosis (1) Constipation: Code(s): K59.00 - Constipation, unspecified Status: Acute (2) Hemangioma: Code(s): D18.00 - Hemangioma unspecified site Status: Acute DS: Summary Hospital Course Hospital Course: 80 yo lady without ACS in history presenting with chest pain. Atypiclal in nature - not exertional or pressure like. Moderately severe pain, not exacerbated by any trigger, feels sharp, and last only a few seconds. Not associated by food. No fevers, diaphroesis, n/v. EKG nonichschemic, troponin negative, seen by smoking tobacco cutter operator - advised that pain not likely to be cardiac. Per patient, she sometimes feels this pain when she has not had a bowel movement for an extended period of time. In this case, has been over [address] abdomen not showing obstruction, and patient was passing gas. Tried several medications, but in the end lactulose induced bowel movement and patient's pain and discomfort resolved. Send home with bowel regimen and close PCP folow up. Status at Discharge Functional status at discharge: uses cane/walker Overall status at discharge: patient is progressing back to baseline Time Spent with Patient Time attestation: Total time spent providing and/or coordinating discharge services: Time spent: Less than 30 minutes Exam Const: General: no acute distress Neck: Neck: no JVD Resp: Effort & Inspection: normal respiratory effort Auscultation: clear to auscultation bilaterally Cardio: Rate: regular rate Rhythm: regular rhythm GI: GI Palp: Yes Soft to palpation and No Tenderness to palpation present (GI) Discharge Plan Discharge Attending physician on discharge: Annalise Reed Consulting providers: Ren Gann ; Gloria Chawla ; Jorgito Etienne ; Bola Sepulveda ; Carson Armendariz Discharging Clinician: Annalise Reed Anticipated Discharge Date/Time: 02/18/21 11:54 Patient Disposition: Home, Self-Care Activity: may shower, no straining and as tolerated Diet: heart healthy, low cholesterol and high fiber Patient Instructions: Antibiotic Form, Chest Pain (DC), Constipation (DC) Stand Alone Forms: General Discharge Information Follow-up/Referrals: Mihai Wray MD [Primary Care Provider] - Discharge Medications: New aspirin [Children's Aspirin] 81 mg Tablet,Chewable 81 mg PO DAILY@0800 Qty: 30 RF: 0 polyethylene glycol 3350 [Miralax] 17 gram/dose powder 17 g PO BID PRN (Reason: constipation) Qty: 119 RF: 0 Continued losartan 50 mg tablet 50 mg PO DAILY RF: 0 Lumigan 0.01 % drops 1 drop EACH EYE HS RF: 0 Combigan 0.2-0.5 % drops 1 drop LEFTEYE Q12H RF: 0 ascorbic acid (vitamin C) [Vitamin C] 500 mg Tablet 500 mg PO DAILY RF: 0 cholecalciferol (vitamin D3) 10 mcg (400 unit) Tablet 10 mcg PO DAILY RF: 0 Discontinued naproxen sodium 275 mg Tablet 275 mg PO HS RF: 0 Date of admission: 02/16/21 14:40 Primary Care Provider: Mihai Wray Admitting Provider: Ramírez Saenz Attending physician on admission: Annalise Reed Condition: Stable Quality VTE Prophylaxis VTE prophylaxis: pharmacologic ordered
[2021-02-18 04:00] VITALS: PULSE 61
[2021-02-18 06:00] VITALS: BP 132/76; PULSE 65; RESP 18; TEMP 35.9; O2SAT 96
[2021-02-18 06:12] LABS: Basophils Absolute Auto 0.1 K/mm3 (0.0-0.1); Basophils Percent Auto 0.6 % (0.2-1.2); Eosinophils Absolute Auto 0.2 K/mm3 (0-0.3); Eosinophils Percent Auto 2.5 % (0-4.4); Hemoglobin 13.5 g/dL (12.0-15.0); Immature Granulocyte Absolute 0.03 K/mm3 (0.00-0.031); Immature Granulocyte Percent A 0.4 % (0-0.5); Lymphocytes Percent Auto 23.6 % (18.3-44.2); Mean Corpuscular HGB Conc 32.1 g/dl (32-36); Mean Corpuscular Hemoglobin 29.4 pg (26-34); Mean Corpuscular Volume 91.5 fl (80-100); Mean Platelet Volume 10.5 fl (7.4-10.4); Monocytes Absolute Auto 0.6 K/mm3 (0.1-0.6); Monocytes Percent Auto 7.6 % (2.6-8.5); Neutrophils Absolute Auto 5.3 K/mm3 (1.3-6.7); Neutrophils Percent Auto 65.3 % (45.5-73.1); Platelet Count Result 217 k/mm3 (150-375); Red Blood Count 4.59 M/mm3 (4.2-5.4); Red Cell Distribution Width 12.6 % (11.5-14.5)
[2021-02-18 06:34] LABS: Alanine Aminotransferase 24 U/L (4-35); Albumin Level 3.6 g/dL (3.5-5.1); Alkaline Phosphatase 51 U/L (38-126); Anion Gap 7 mmol/L (8-16); Aspartate Amino Transferase 30 U/L (14-36); Bilirubin,Total 0.5 mg/dL (0.2-1.3); Blood Urea Nitrogen 9 mg/dL (7-17); Calcium 8.6 mg/dL (8.4-10.2); Carbon Dioxide 26 mmol/L (22-30); Chloride 104 mmol/L (98-107); Estimated CRCL calculation 58 ml/min; Estimated Glomerular Filt Rate > 60; Glucose 89 mg/dL (65-110); Magnesium 2.1 mg/dL (1.6-2.3); Phosphorus 3.9 mg/dL (2.5-4.5); Potassium 3.6 mmol/L (3.4-5.0); Sodium 137 mmol/L (137-145)
[2021-02-18 08:00] VITALS: PULSE 70
[2021-02-18] MEDS: ASPIRIN 81 MG CHEWABLE TABLET PO (08:55)
[2021-02-18] MEDS: LOSARTAN POTASSIUM 50 MG TABLET PO (08:56)
[2021-02-18] MEDS: BISACODYL 10 MG SUPPOSITORY RECTAL (08:56)
[2021-02-18] MEDS: CHOLECALCIFEROL 400 UNITS TABLET (VIT D) PO (08:56)
[2021-02-18] MEDS: ASCORBIC ACID 500 MG TABLET PO (08:57)
[2021-02-18] MEDS: LACTULOSE 20 GM/30 ML UDC 40 GM PO (08:57)
[2021-02-18] MEDS: ENOXAPARIN 40 MG/0.4 ML SYRINGE SUB-Q (08:57)
[2021-02-18 12:00] VITALS: PULSE 70
== END 2021-02-18 14:25 | disposition home or self-care (01) ==
LOC: ANHED 14:23 → ANH3MEDSUR 02-18 10:38 → ANHIMU 02-20 13:51
PROVIDERS: Emergency Medicine; Admitting Provider Internal Medicine; Emergency Provider Emergency Medicine; PCP Family Medicine Adolescent Medicine; Visit Provider Internal Medicine
DX: K59.00 Constipation, unspecified (principal); D18.00 Hemangioma unspecified site; R07.89 Other chest pain; I10 Essential (primary) hypertension; H40.9 Unspecified glaucoma
CPT/HCPCS: 36415; 71046; 80048; 80053; 83735; 84100; 84484; 85025; 85610; 85730; 93005; 96372; 99285; A9270; G0378; J1650

== ENCOUNTER 2021-05-21 01:24 | Day surgery (SDC) | payer MEDICARE, SELFPAY ==
[2021-05-16 14:41] VITALS: BMI 27.6
--- NOTE | 2021-05-16 14:48 | PC.NURSE ---
Report to the Outpatient Waiting Room, entrance under the green pavilion located off [facility], at time _1200__ on date _05/21/21___. OR Time: _2 PM___. - You and your visitor will be asked a series of questions to screen for COVID 19 for your protection. - A mask is required within the hospital. - Only one visitor is allowed at this time. Patient visitors will be guided where to wait when not with patient. Preoperative COVID Testing Requirements: No COVID Test needed if: (proof is required; if not received patient will have Rapid Test prior to entry) - Patient has received COVID Vaccine at least 14 days prior to procedure date or - Patient has positive COVID test result within last 90 days of surgery date. COVID Test needed if above criteria is not met If not COVID vaccinated a COVID test must be conducted within 72 hours of surgery and patient is asked to isolate self from time of testing until procedure. You will go to the [facility] for your COVID testing. The [facility] site is located at the corner of [address] [facility]. You will only be called if COVID results are positive and your surgeon may reschedule your elective surgery date. Patients may have clear liquids (water, carbonated beverages, clear teas, apple juice) until 3 hours prior to surgery (1100 AM) with a maximum of 20 ounces. - No food from midnight until time of surgery - Infants may have breast milk until 4 hours before surgery, formula 6 hours prior to surgery. - Children will be allowed to drink immediately following surgery. If applicable, please bring a bottle or sippy cup to assist with drinking. Juice, water, soda, and popsicles are readily available. For infants on formula, please bring formula the day of surgery. Pacifiers are allowed. Take the following medications with a SIP of water the morning of surgery: __EYE DROPS Medications to discontinue per physician VIT D & C Date to take last dose 05/17/21 Please no make-up, nail lithuanian, hairspray, perfume, deodorant, or body powder the day of surgery. No jewelry (including any body piercings) or valuables the day of surgery, leave them at home. Please take a shower or bath the night before, or the morning of, surgery with an antibacterial soap. Wear comfortable, loose fitting clothing. Children are encouraged to wear pajamas. - Jewelry must be removed prior to entering the operating room. Rings and piercings that are not removed may be cut off. - The hospital will not accept responsibility for valuables. - Please leave all valuables, including medications, at home the day of surgery. If you are going home after surgery, a licensed trackless trolley driver must drive you home. - NO public transportation without another adult. - We recommend that an adult stay with you for 24 hours following discharge. - We also recommend that you do not drive, make important decision, drink alcoholic beverages, or take any drugs that were not prescribed by your health care provider for at least 24 hours after your discharge time. For Pediatric surgeries, we recommend two adults accompany the child home (only one inside the building at this time). Follow any additional instructions given to you from your surgeon. Telephone instructions given to ____PT and asked if any additional questions and then verbalized understanding. Patient advised to call surgeon office or pre surgery nurse liaison [phone] if any additional questions.
[2021-05-21] VITALS (14 sets, daily range): BP systolic 113–153; BP diastolic 69–89; PULSE 60–77; RESP 13–16; TEMP 36.3–36.7; O2SAT 98–100
[2021-05-21] MEDS: LACTATED RINGERS 1,000 ML 30 ML IV CONT (12:41)
--- NOTE | 2021-05-21 13:32 | WPDANESEPPF ---
Anes - Initial Pre Proc Eval Procedure: Operation Date: 05/21/21 14:00 Proposed Procedures p Excision Recently Infected Epidermal Cyst Right Posterior Neck - sIh Calles MD Date/Time: 05/21/21 13:32 Surgeon: Ish Calles MD Pre Op Diagnosis: infected epidermal cyst right posterior neck Patient Data Age: 80 Gender: F Height: 1.57 m Weight: 68.7 kg Last Vital Signs Temp 36.3 C L 05/21/21 12:01 Pulse 70 05/21/21 12:01 Resp 16 05/21/21 12:01 BP 139/78 05/21/21 12:01 Pulse Ox 100 05/21/21 12:01 Allergies Allergy/AdvReac Type Severity Reaction Status Date / Time procaine Allergy Severe Difficulty Verified 05/21/21 12:14 Breathing-Novocain Sulfa (Sulfonamide Allergy Intermediate Hives Verified 05/21/21 12:14 Antibiotics) ciprofloxacin Allergy Mild crawled Verified 05/21/21 12:14 out of skin metronidazole Allergy Mild JETTERY, Verified 05/21/21 12:14 WANTS TO CRAW OUT OF HER SKIN Quinolones Allergy Mild JETTERY, Verified 05/21/21 12:14 WANTS TO CRAWL OUT OF HER SKIN lidocaine AdvReac Severe lost Verified 05/21/21 12:14 feeling Home Medications Medication Instructions Recorded Confirmed Type bimatoprost 0.01 % eye drops 1 drop EACH EYE HS 09/08/19 05/21/21 History brimonidine 0.2 %-timolol 0.5 % 1 drop LEFTEYE Q12H 09/08/19 05/21/21 History eye drops losartan 50 mg tablet 50 mg PO QAM 09/08/19 05/21/21 History ascorbic acid (vitamin C) [Vitamin 500 mg PO DAILY 11/22/19 05/21/21 History C] cholecalciferol (vitamin D3) 10 mcg PO DAILY 11/22/19 05/21/21 History amoxicillin-pot clavulanate 1 tablet BID 05/16/21 05/21/21 History acetaminophen [Tylenol] 325 mg PO ONCE PRN 05/21/21 05/21/21 History Patient hx anesthesia problems: none Family hx anesthesia problems: none Results Review: All pre-operative results and documents have been reviewed as part of the pre-operative evaluation. [facility] Past Medical History Medical History GERD (gastroesophageal reflux disease) Glaucoma High blood cholesterol HTN (hypertension) Surgical History Surgical History H/O knee surgery History of laparoscopic cholecystectomy 11/29/19 Tumor of ovary removed in her 20s Family History Family History Father Family history of malignant neoplasm Cancer Mother High cholesterol Other Cerebrovascular accident Family history of cardiovascular disease Hypertension Social History Social History Social History: The patient is and her is a durable power right of way cutter for healthcare. The patient has 3 sons. She is listed as a full code. 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 Lifelong nonsmoker. She is alert alcohol or illicit drugs. Smoking status: Never smoker Second hand tobacco smoke exposure: No Alcohol intake: current Alcohol use details: STATES MAYBE 1-2/MONTH Substance use: never Substance use type: does not use Living arrangements: with family Gender identity (if verbalized by the patient): Female Spiritual care concerns: No Anes - Eval Final PreProcedure Day of Procedure 05/21/21 13:32 Patient weight: overweight Heart: regular rate and rhythm Lungs: clear to auscultation Airway: Mallampati scale class II Neurological: alert and oriented Last oral intake: >/= 8 hours ASA classification: III Emergent: no Anesthetic plan: proceed Anesthesia type and monitoring: general LMA and standard monitoring Results Review: All pre-operative results and documents have been reviewed as part of the pre-operative evaluation. Informed Consent: The patient's anesthetic plan and its attendant risks and benefits were discussed with the patient/family/PO
--- NOTE | 2021-05-21 13:36 | WPDHPUPDATE1 ---
History and Physical Update Update Date/Time: 05/21/21 13:36 History and Physical has been reviewed, including an updated exam of the patient. There are changes in the patient's condition. Patient has noticed that the lesion has gotten slightly smaller and occasionally draining some bloody fluid. Risks, benefits, and alternatives Of general anesthesia ) because patient claims severe allergy to 2 kinds of local anesthetic) and excision of a suspected recently infected epidermal cyst have been discussed and questions answered. Patient agrees to proceed with procedure.
[2021-05-21] MEDS: ceFAZolin 2 GM/D5W 50 ML 2 GM/50 ML BAG IVPB (13:48)
[2021-05-21] MEDS: fentaNYL CITRATE INJ (*CRX) 100 MCG/2 ML VIAL 25 MCG IV PUSH ×6 (15:25→15:54)
--- NOTE | 2021-05-21 16:33 | W.PM.PROC2 ---
Procedure Note - Detailed Date of Procedure 05/25/21 Pre-op Diagnosis infected epidermal cyst right posterior neck Post-op Diagnosis same Procedure Performed Excision of skin lesion right posterior neck Surgeon Ish Calles MD [employer] Specialist MAURICE James, OR 1st assist Anesthesia general ( general via LMA) Indications The patient has a reported allergy to both amide and arabella local anesthetics. therefore over the weekend she was treated with antibiotics. She is having perhaps slight bleeding but no purulent drainage from the suspected infected epidermal cyst on the posterior neck. Therefore, I recommended complete excision under general anesthesia to rid her of this problem leaving her an exchange for a scar in the area. She knows that if we run into infection we may need to leave the wound partially open or close it knowing she has an increased risk of wound infection and continue antibiotics. No matter what we will continue try to prevent problems by having her take antibiotics for about 4 more days after surgery. Findings Normal appearing fat surrounding the excised skin and subcutaneous lesion. I did not run into any purulence. Description of Procedure The patient was placed in the left lateral decubitus position. After a surgical time out confirming patient and procedure the patient was prepped and draped in the usual sterile fashion. Because of her allergy we did not use any local anesthetic. The lesion measured approximately 2 cm in diameter and was nearly a perfect [place]. I outlined a transverse elliptical excision on the skin with an indelible ink marker.. An elliptical incision was made around the lesion with a #15. scalpel blade taking a thin margin circumferentially. I dissected down to the deep subcutaneous tissues mostly with needlepoint Bovie cautery and then completely excised the lesion. Bleeding was controlled with electrocautery. The wound was closed in two layers. Some un-dyed 3-0 Vicryl deep dermal and one centrally located deep subcutaneous sutures were used to approximate the subcutaneous tissues and then a 4-0 undyed Monocryl running subcuticular skin closure was completed. incision measured approximately 4.5 cm transversely at the end of closure. Surgical glue applied as dressing. Patient tolerated this well. Estimated blood loss was approximately 5 cc. Implants none Estimated Blood Loss 5 Drains No Packing No Pathology yes ( an ellipse of skin and subcutaneous tissue containing a suspected infected epidermal cyst that has not ruptured.) Complications No immediate complications Condition stable Disposition PACU
[2021-05-21] MEDS: oxyCODONE HCL (*CRX) 2.5 MG TAB IR PO (17:11)
== END 2021-05-21 17:55 | disposition home or self-care (01) ==
PROVIDERS: PCP Family Medicine Adolescent Medicine; Visit Provider Surgery
PROC: (CPT 11422; principal; 2021-05-21 14:00)
DX: L72.0 Epidermal cyst (principal); L08.9 Local infection of the skin and subcutaneous tissue, unspecified; K21.9 Gastro-esophageal reflux disease without esophagitis; E78.00 Pure hypercholesterolemia, unspecified; I10 Essential (primary) hypertension; Z79.82 Long term (current) use of aspirin
CPT/HCPCS: 11422; 12042; 88304; A9270; J0690; J1100; J2405; J2704; J3010; J7120

== ENCOUNTER 2021-11-04 04:06 | Observation (INO) | payer MEDICARE, SELFPAY ==
[2021-11-04] VITALS (38 sets, daily range): BP systolic 107–180; BP diastolic 64–108; PULSE 74–104; RESP 13–24; TEMP 36.7–37.3; O2SAT 93–99; BMI 27.5
--- NOTE | ~2021-11-04 | CT_ITS ---
EXAMINATION: CTA chest abdomen pelvis DATE: 11/04/2021 07:09 INDICATION: Chest pain radiating to back and lower extremities. TECHNIQUE: Computed tomography (CT) of the chest, abdomen, and pelvis was performed with 100 CC Omnip aque 300 intravenous contrast. Automated exposure control and iterative reconstruction technique were employed. Exam dose: 788.81 mGy-cm total exam DLP. COMPARISON: 11/04/2021 portable AP chest 02/12/2021 CT abdomen pelvis FINDINGS: CHEST CT: No thoracic aortic aneurysm or dissection. Mild thoracic aortic arch calcification. Normal heart size . No pericardial or pleural effusion. No hilar or mediastinal mass lesion or lymphadenopathy. No pulmonary infiltrate or consolidation or pulmonary mass lesion. ABDOMEN/PELVIS CT: Status post cholecystectomy. No bile duct or pancreatic duct dilatation. There is diffuse hepatic steatosis. No hepatic, splenic, pancreatic, adrenal or renal space occupyin g mass lesion. There is nonspecific fullness of the left renal collecting structures. No urinary tract calculus or hydroureteronephrosis otherwise. Normal appendix. There is diverticulosis of the colon; no evidence of diverticulitis. No bowel obst ruction or free air. No abdominal aortic aneurysm. Calcified atherosclerotic plaque is noted. No intraperitoneal or retrop eritoneal or pelvic mass lesion or lymphadenopathy. No ascites. There is degenerative change of the thoracic and lumbar spine. No suspicious osteolytic or osteoblas tic lesions. IMPRESSION: No thoracic or abdominal aortic aneurysm or dissection Status post cholecystectomy Hepatic steatosis Diverticulosis of the colon; no CT evidence of diverticulitis Reviewed, dictated and finalized at [facility]. Reviewed, dictated and finalized at [facility].
--- NOTE | ~2021-11-04 | CT_ITS ---
EXAMINATION: CT lumbar spine wo con DATE: 11/04/2021 20:39 INDICATION: Low back pain. TECHNIQUE: Computed tomography (CT) of the lumbar spine was performed without intravenous contrast. A utomated exposure control and iterative reconstruction technique were employed. The dose-length produ ct was 794.80 mGy-cm. COMPARISON: None FINDINGS: Lumbar scoliosis. Partial left L5-S1 sacralization was pseudoarthrosis formation. Vertebral body heights are maintained. Multilevel disc narrowing and marginal osteophytosis, most severe at L4 -5 and L5-S1. Multilevel severe lumbar facet arthropathy. No pars defects. Multilevel severe bilatera l neural foraminal narrowing. Severe central canal narrowing at L2-3, L3-4, and L4-5. IMPRESSION: 1. No acute fracture or traumatic malalignment in the lumbar spine. 2. Severe degenerative disc disease and facet arthropathy contribute to multilevel severe neural fora kait and central canal narrowing. Reviewed, dictated and finalized at location [facility]. IMPRESSION: 1. No acute fracture or traumatic malalignment in the lumbar spine. 2. Severe degenerative disc disease and facet arthropathy contribute to multile dwayne severe neural foraminal and central canal narrowing.
--- NOTE | ~2021-11-04 | MR_ITS ---
EXAMINATION: MR lumbar spine wo con DATE: 11/05/2021 17:35 INDICATION: Central canal narrowing . TECHNIQUE: Magnetic resonance imaging (MRI) of the lumbar spine was performed without intravenous con trast. Sequences included sagittal T2-weighted FSE, sagittal T2-weighted FS FSE, sagittal T1-weighted FSE, and axial T2-weighted FSE. COMPARISON: None FINDINGS: The last fully formed and hydrated disc is designated L5-S1. The marrow signal is benign an d homogenous. Conus terminates at L1-L2. 4 mm anterolisthesis of L4 on L5. Multilevel disc narrowing and dehydration. Nerve root clumping and stretching. Left parapelvic cyst. The following disc levels are specifically discussed: T11-T12: The disc does not extend beyond the endplate margin. There is mild facet joint osteoarthriti s. There is no neural foraminal stenosis. There is no central canal stenosis. T12-L1: Moderate diffuse bulge. There is mild facet joint osteoarthritis. There is mild bilateral inf erior neural foraminal stenosis. There is no central canal stenosis. L1-L2: Moderate diffuse bulge. There is moderate facet joint osteoarthritis. There is mild bilateral inferior neural foraminal stenosis. There is mild central canal stenosis. L2-L3: Severe diffuse bulge There is severe facet joint osteoarthritis. There is moderate right neura l foraminal stenosis. There is moderate central canal stenosis. L3-L4: Severe diffuse bulge. There is severe facet joint osteoarthritis. There is moderate right neur al foraminal stenosis. There is moderate central canal stenosis. L4-L5: Severe diffuse bulge. There is severe facet joint osteoarthritis. There is severe right neural foraminal stenosis There is cortical central canal stenosis. Thecal sac is narrowed to a maximum AP diameter of 4 mm. L5-S1: Severe diffuse bulge. There is moderate facet joint osteoarthritis. There is moderate bilatera l neural foraminal stenosis. There is no central canal stenosis. IMPRESSION: 1. Critical central canal stenosis at L4-5. 2. Severe right neural foraminal narrowing at L4-5. 3. Lumbar adhesive arachnoiditis. 4. Degenerative grade 1 anterolisthesis of L4 on L5. 5. Multilevel mild and moderate degrees of neural foraminal and central canal stenosis detailed above . Reviewed, dictated and finalized at location [facility]. IMPRESSION: 1. Critical central canal stenosis at L4-5. 2. Severe right neural foraminal narrowing at L4-5. 3. Lumbar adhesive arachnoiditis. 4. Degenerative grade 1 anterolisthesis of L4 on L5. 5. Multilevel mild and moderate degrees of neural foraminal and central canal s tenosis detailed above.
--- NOTE | ~2021-11-04 | XR_ITS ---
XR chest 1V portable DATE: 11/04/2021 05:11 INDICATION: Chest pain radiating to back TECHNIQUE: Portable AP chest on 11/04/2021 at 0506 hours COMPARISON: 8212/2020 PA and lateral chest FINDINGS: Normal heart size. No hilar or mediastinal enlargement. No pulmonary infiltrate or consolid ation, pleural effusion or pulmonary vascular congestion or pneumothorax. Osteopenia. Dextroscoliosis of the thoracic spine. Surgical clips, right upper quadrant, consistent with cholecystectomy. IMPRESSION: No active cardiopulmonary disease This examination is not sensitive for detection of aortic dissection; CTA thorax examination with IV contrast material should be considered for such purpose. Reviewed, dictated and finalized at location [facility]. IMPRESSION: No active cardiopulmonary disease This examination is not sensitive for detection of aortic dissection; CTA thora x examination with IV contrast material should be considered for such purpose.
--- NOTE | 2021-11-04 04:16 | ECG_ITS ---
Measurements Intervals [place] Rate: 79 P: -3 HI: 131 QRS: -10 QRSD: 98 T: 28 QT: 399 QTc: 458 Interpretive Statements SINUS RHYTHM BASELINE ARTIFACT- I, III, AVL NORMAL ECG Electronically Signed On 11-04-2021 7:47:03 CDT by Carson Armendariz D.O.
[2021-11-04 06:08] LABS: Basophils Absolute Auto 0.1 K/mm3 (0.0-0.1); Basophils Percent Auto 0.6 % (0.2-1.2); Eosinophils Absolute Auto 0.1 K/mm3 (0-0.3); Eosinophils Percent Auto 1.2 % (0-4.4); Hematocrit 46.6 % (37.0-47.0); Hemoglobin 15.4 g/dL (12.0-15.0); Immature Granulocyte Absolute 0.03 K/mm3 (0.00-0.031); Immature Granulocyte Percent A 0.3 % (0-0.5); Lymphocytes Absolute Auto 1.23 K/mm3 (0.9-3.2); Lymphocytes Percent Auto 13.8 % (18.3-44.2); Mean Corpuscular Hemoglobin 30.1 pg (26-34); Mean Corpuscular Volume 91.2 fl (80-100); Mean Platelet Volume 10.3 fl (7.4-10.4); Monocytes Absolute Auto 0.4 K/mm3 (0.1-0.6); Monocytes Percent Auto 4.7 % (2.6-8.5); Neutrophils Absolute Auto 7.1 K/mm3 (1.3-6.7); Neutrophils Percent Auto 79.4 % (45.5-73.1); Platelet Count Result 247 k/mm3 (150-375); Red Blood Count 5.11 M/mm3 (4.2-5.4); Red Cell Distribution Width 12.5 % (11.5-14.5); White Blood Count 8.9 K/mm3 (4.5-10.0)
[2021-11-04 06:32] LABS: Alanine Aminotransferase 25 U/L (6-35); Albumin Level 4.6 g/dL (3.5-5.1); Alkaline Phosphatase 59 U/L (38-126); Anion Gap 10 mmol/L (8-16); Aspartate Amino Transferase 43 U/L (14-36); Bilirubin,Total 0.8 mg/dL (0.2-1.3); Blood Urea Nitrogen 14 mg/dL (7-17); Calcium 9.2 mg/dL (8.4-10.2); Carbon Dioxide 25 mmol/L (22-30); Chloride 103 mmol/L (98-107); Estimated Glomerular Filt Rate > 60; Glucose 77 mg/dL (65-110); Sodium 138 mmol/L (137-145)
[2021-11-04 06:38] LABS: Troponin I < 0.012 ng/mL (0.000-0.034)
--- NOTE | 2021-11-04 07:25 | PC.NURSE ---
patient report received from MAURICE Mera. All questions answered and care of patient assumed. Patient resting comfortably in bed with no distress. Reports minimal chest pain at 1/10 at this time. Continues to c/o lower back pain at 3/10. VSS at this time. Awaiting imaging results and further plan. Call light within reach and at bedside.
[2021-11-04 08:16] LABS: Troponin I < 0.012 ng/mL (0.000-0.034)
[2021-11-04 08:28] LABS: Prothrombin Time 13.1 Seconds (11.1-14.7)
--- NOTE | 2021-11-04 08:37 | PC.NURSE ---
Dr. Villafuerte at bedside to assess patient.
--- NOTE | 2021-11-04 08:58 | ED.CHESTPAIN ---
HPI - Chest Pain General Chief Complaint: Chest Pain <Kadi Chauhan MD - Last Filed: 11/04/21 21:08> Stated Complaint: Chest, upper back, neck pain <Kadi Chauhan MD - Last Filed: 11/04/21 21:08> Time Seen by Provider: 11/04/21 04:15 <Kadi Chauhan MD - Last Filed: 11/04/21 21:08> History of Present Illness HPI narrative: 81-year-old female presenting with sudden onset chest pain that woke her up at night, she states that it seems to come from her back to her chest and started after she tried to roll over, she states is quite excruciating, different from chest pain she has had in the past, she states that the pain also seems to go up to her head and down to her feet. Also felt some nausea. No numbness or tingling anywhere. <Kadi Chauhan MD - Last Filed: 11/04/21 21:08> Related Data Home Medications: Home Medications Medication Instructions Recorded Confirmed bimatoprost 0.01 % eye drops 1 drop EACH EYE HS 09/08/19 11/04/21 brimonidine 0.2 %-timolol 0.5 % 1 drop LEFTEYE Q12H 09/08/19 11/04/21 eye drops ascorbic acid (vitamin C) [Vitamin 500 mg PO DAILY 11/22/19 11/04/21 C] cholecalciferol (vitamin D3) 10 mcg PO DAILY 11/22/19 11/04/21 acetaminophen [Tylenol] 325 mg PO ONCE PRN 05/21/21 11/04/21 <Kadi Chauhan MD - Last Filed: 11/04/21 21:08> Allergies/Adverse Reactions: Allergies Allergy/AdvReac Type Severity Reaction Status Date / Time procaine Allergy Severe Difficulty Verified 11/04/21 10:16 Breathing-Novocain Sulfa (Sulfonamide Allergy Intermediate Hives Verified 11/04/21 10:16 Antibiotics) ciprofloxacin Allergy Mild crawled Verified 11/04/21 10:16 out of skin metronidazole Allergy Mild JETTERY, Verified 11/04/21 10:16 WANTS TO CRAW OUT OF HER SKIN Quinolones Allergy Mild JETTERY, Verified 11/04/21 10:16 WANTS TO CRAWL OUT OF HER SKIN lidocaine AdvReac Severe lost Verified 11/04/21 10:16 feeling <Kadi Chauhan MD - Last Filed: 11/04/21 21:08> Review of Systems Review of Systems: CONST: No fever. HEENT: No sore throat C/V: chest pain RESP: Difficulty breathing GI: Reports abdominal pain, nausea : No dysuria. M/S: Back pain SKIN: No rash. NEURO: [No focal numbness or weakness] PSYCH: [No depression] <Kadi Chauhan MD - Last Filed: 11/04/21 21:08> [facility] Past Medical History Medical History: Medical History (Updated 11/04/21 @ 15:08 by Shannan Valle PA-C) Allergy history, anesthetic Encounter for surgical aftercare following surgery on the skin and subcutaneous tissue GERD (gastroesophageal reflux disease) High blood cholesterol HTN (hypertension) Infected sebaceous cyst of skin Normal colonoscopy 12/03 Repeat 12/13 <Kadi Chauhan MD - Last Filed: 11/04/21 21:08> Surgical History Surgical History: Surgical History H/O knee surgery History of excision of lesion Excision of skin lesion right posterior neck 05/21/21 History of laparoscopic cholecystectomy 11/29/19 Tumor of ovary removed in her 20s <Kadi Chauhan MD - Last Filed: 11/04/21 21:08> Family History Family History: Family History Father Family history of malignant neoplasm Cancer Mother High cholesterol Other Cerebrovascular accident Family history of cardiovascular disease Hypertension <Kadi Chauhan MD - Last Filed: 11/04/21 21:08> Social History Social History: Social History (Updated 11/04/21 @ 15:11 by Shannan Valle PA-C) Social History: Ms. Rodrigues lives at home with her and is independent in her daily activities. Her PCP is Dr. Trammell. 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 She designates her as her surrogate decision maker and would like to be a full code. Smoking status: Never smoker Second hand tobacco smoke exposure: No [place]co
[2021-11-04] MEDS: HEPARIN SODIUM 5,000 UNITS/ML VIAL 4500 UNITS IV PUSH (09:27)
[2021-11-04] MEDS: HEPARIN SOD/D5W 100 UNITS/ML 25,000 UNITS/250 ML BAG 10 UNITS IV CONT (09:47)
[2021-11-04 10:22] LABS: SARS-CoV-2 RNA PCR Negative
--- NOTE | 2021-11-04 12:03 | ADMGEN ---
This patient, Maria Dolores Rodrigues, was admitted to IMU Room 206-01. Patient/family oriented to hospital policies and general routines including ID bracelet, bed and alarms, visiting hours, pain management, procedures, bathroom and other care routines, personal items, smoking policy, room service/diet, and visiting hours. Information on how to activate the Rapid Response Team has been discussed. Patient/Family are encouraged to report perceived risks to care and to ask questions if they do not understand what they are told or what they should do.
--- NOTE | 2021-11-04 14:53 | PM.IMHP ---
H&P: HPI History of Present Illness Date/Time: 11/04/21 14:53 Chief Complaint: Chest pain Narrative: Date of service: 11/04/2021 Maria Dolores Rodrigues is 81-year-old female with a history of hypertension, hyperlipidemia, and GERD who presented to the emergency department on 11/04/2021 from home with complaints of chest pressure radiating from below her breast to her back. She stated last night before bed around 11:00 p.m. she had been feeling some discomfort in her back. She got to try to see if repositioning would help and she had a jolt of pain going down her back and up to her head. She had a ?funny feeling? in her neck that she cannot describe. This settled into some lower sternal/epigastric discomfort that radiated through to the back. Did not have associated sweats, dizziness, lightheadedness. She also notes some discomfort in the right shoulder but this improves with positional changes. She denies any cardiac history but notes that she has been evaluated for pain similar to this with a negative workup. Her main concern at this time is the pain in her back which is mostly concentrated in the lower lumbar region. This has been present for some time. She did physical therapy for this several months ago with improvement but now her symptoms have worsened. She has difficulty bending over and doing activities she typically enjoys. She denies any issues with ambulation. She does complain of tingling in her feet comes and goes intermittently for several months as well. Denies saddle anesthesia, loss of bowel or bladder control. The pain does not wake her at night. She denies headache or confusion. She denies acid reflux/heartburn symptoms. Denies blood in her stools. She did endorse belching with the onset of her pain. Denies any significant stressors or anxiety but admits that over the past 2 years she has had overall increased stress due to the pandemic. On presentation, troponins are negative, EKG shows sinus rhythm with no ST changes, CTA chest/abdomen/pelvis negative for aortic aneurysm or dissection. Review of Systems Review of Systems: All systems reviewed & are unremarkable except as noted in HPI and below PMFSH Past Medical History Medical History (Updated 11/04/21 @ 15:08 by Shannan Valle PA-C) Allergy history, anesthetic Encounter for surgical aftercare following surgery on the skin and subcutaneous tissue GERD (gastroesophageal reflux disease) High blood cholesterol HTN (hypertension) Infected sebaceous cyst of skin Normal colonoscopy 12/03 Repeat 12/13 Surgical History Surgical History H/O knee surgery History of excision of lesion Excision of skin lesion right posterior neck 05/21/21 History of laparoscopic cholecystectomy 11/29/19 Tumor of ovary removed in her 20s Family History Family History Father Family history of malignant neoplasm Cancer Mother High cholesterol Other Cerebrovascular accident Family history of cardiovascular disease Hypertension Social History Social History (Updated 11/04/21 @ 15:11 by Shannan Valle PA-C) Social History: Ms. Rodrigues lives at home with her and is independent in her daily activities. Her PCP is Dr. Trammell. 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 She designates her as her surrogate decision maker and would like to be a full code. Smoking status: Never smoker Second hand tobacco smoke exposure: No Alcohol intake: current Alcohol use details: Rare alcohol Substance use: never Substance use type: does not use Living arrangements: with family Gender identity (if verbalized by the patient): Female Spiritual care concerns: No Meds Home Medications and Allergies Home Medications Medication Instructions Recorded Confirmed Type bimatoprost 0.01 % eye drops 1 drop E
[2021-11-04 16:14] LABS: Partial Thromboplastin Time 122.6 SECONDS (22.3-36.8)
[2021-11-04] MEDS: PANTOPRAZOLE 40 MG TABLET PO (17:36)
--- NOTE | 2021-11-04 19:04 | PC.NURSE ---
Heparin drip was dc'd at 15:55. PTT was drawn. Results called to provider.
[2021-11-05] VITALS (12 sets, daily range): BP systolic 116–148; BP diastolic 71–82; PULSE 70–92; RESP 14–16; TEMP 36.4–37; O2SAT 95–100
[2021-11-05 04:52] LABS: Basophils Absolute Auto 0.1 K/mm3 (0.0-0.1); Basophils Percent Auto 0.7 % (0.2-1.2); Eosinophils Absolute Auto 0.1 K/mm3 (0-0.3); Eosinophils Percent Auto 1.9 % (0-4.4); Hematocrit 40.5 % (37.0-47.0); Hemoglobin 13.5 g/dL (12.0-15.0); Immature Granulocyte Absolute 0.02 K/mm3 (0.00-0.031); Immature Granulocyte Percent A 0.3 % (0-0.5); Lymphocytes Absolute Auto 1.52 K/mm3 (0.9-3.2); Lymphocytes Percent Auto 20.7 % (18.3-44.2); Mean Corpuscular HGB Conc 33.3 g/dl (32-36); Mean Corpuscular Hemoglobin 30.2 pg (26-34); Mean Corpuscular Volume 90.6 fl (80-100); Mean Platelet Volume 9.5 fl (7.4-10.4); Monocytes Absolute Auto 0.6 K/mm3 (0.1-0.6); Monocytes Percent Auto 7.6 % (2.6-8.5); Neutrophils Absolute Auto 5.1 K/mm3 (1.3-6.7); Neutrophils Percent Auto 68.8 % (45.5-73.1); Platelet Count Result 203 k/mm3 (150-375); Red Blood Count 4.47 M/mm3 (4.2-5.4); Red Cell Distribution Width 12.8 % (11.5-14.5); White Blood Count 7.4 K/mm3 (4.5-10.0)
[2021-11-05 05:06] LABS: Anion Gap 7 mmol/L (8-16); Blood Urea Nitrogen 13 mg/dL (7-17); Calcium 8.6 mg/dL (8.4-10.2); Carbon Dioxide 26 mmol/L (22-30); Chloride 104 mmol/L (98-107); Estimated CRCL calculation 58 ml/min; Estimated Glomerular Filt Rate > 60; Glucose 93 mg/dL (65-110); Potassium 3.9 mmol/L (3.4-5.0); Sodium 137 mmol/L (137-145)
[2021-11-05] MEDS: CHOLECALCIFEROL 400 UNITS TABLET (VIT D) PO (08:12)
[2021-11-05] MEDS: PANTOPRAZOLE 40 MG TABLET PO (08:12)
[2021-11-05] MEDS: LOSARTAN POTASSIUM 50 MG TABLET PO (08:12)
[2021-11-05] MEDS: ASCORBIC ACID 500 MG TABLET PO (08:12)
--- NOTE | 2021-11-05 09:45 | PM.DS ---
DS: Admitting Diagnosis Discharge Date 11/05/21 Admitting Diagnosis Atypical chest pain DS: Discharge Diagnosis Discharge Diagnosis (1) Atypical chest pain: Code(s): R07.89 - Other chest pain Status: Acute Assessment and Plan: Patient presented with atypical chest pain that has resolved. ACS ruled out with negative troponins EKG reviewed with no changes GI etiology considered given epigastric location. Patient does admit to taking Aleve 2 times per week which has been discontinued. Initiated on Protonix 40 mg daily. No evidence of bleeding. If pain is persistent, would benefit from outpatient EGD. (2) Low back pain: Code(s): M54.50 - Low back pain, unspecified Status: Acute Assessment and Plan: Patient reports persistent low back pain worsened with activity or bending and associated tingling of bilateral lower extremities. No saddle anesthesia, loss of bowel or bladder control, radicular pain Patient reports previous benefit from physical therapy 1 year ago but now symptoms have worsened Evaluated by PT/OT during admission. Patient plans to follow-up for outpatient PT Supportive care provided. Ice and heat. Analgesics as needed. Avoid NSAIDs. No acute fracture or traumatic malalignment of the lumbar spine on CT (3) Degenerative joint disease (DJD) of lumbar spine: Code(s): M47.816 - Spondylosis without myelopathy or radiculopathy, lumbar region Status: Acute Assessment and Plan: Lumbar CT spine obtain due to complaints of low back pain as above Severe degenerative disc disease and facet arthropathy contributing to multilevel severe neural foraminal and central canal narrowing Discussed case with Neurosurgery (Dr. Ayala) MRI of the lumbar spine revealed critical central canal stenosis and severe right neural foraminal narrowing at L4-L5. Results faxed to [facility] inpatient provided imaging disc to bring to appointment Outpatient follow-up with Neurosurgery. Patient provided office information and she will be contacted for an appointment (4) Abnormal computed tomography angiography (CTA): Code(s): R93.89 - Abnormal findings on diagnostic imaging of other specified body structures Status: Acute Assessment and Plan: Stat reading CTA report showed asymmetric low-attenuation noted in the anterior aspect of the nonaneurysmal abdominal aorta and a near infrarenal location. This does not have the typical appearance of atherosclerotic plaque which is noted in the more distal infrarenal abdominal aorta. Differential would include mural thrombus or mural embolus. Heparin drip initiated on presentation based on initial reading. Following further evaluation and review of final radiology report, there is calcified atherosclerotic plaque of the aortic aneurysm without evidence of dissection, thrombus, or embolus Heparin drip discontinued on 11/04 No further intervention required (5) Essential (primary) hypertension: Code(s): I10 - Essential (primary) hypertension Status: Acute Assessment and Plan: Blood pressure reviewed and was well controlled. Continue home losartan DS: Summary Hospital Course Hospital Course: Date of admission: 11/04/2021 Date of discharge: 11/05/2021 Maria Dolores Rodrigues is 81-year-old female with a history of hypertension, hyperlipidemia, and GERD who presented to the emergency department on 11/04/2021 from home with complaints of chest pressure radiating from below her breast to her back. On presentation to the ED, troponins or negative, EKG showed sinus rhythm with no ST changes, CTA chest/abdomen/pelvis negative for aortic aneurysm or dissection. She was admitted to the hospitalist service for further evaluation management. Please see above for further details. Chest pain resolved. Patient was evaluated for complaints of low back pain with lower extremity tingling and found to
[2021-11-05] MEDS: ACETAMINOPHEN 325 MG TABLET 650 MG PO (11:29)
--- NOTE | 2021-11-05 11:30 | PCPTNOTE ---
Attempted physical therapy evaluation. Per RN, patient has been independent with gait in room. Patient declined the need for physical therapy evaluation at this time.
--- NOTE | 2021-11-05 15:34 | PM.IMPN ---
Progress Note: A&P Assessment and Plan (1) Atypical chest pain: Code(s): R07.89 - Other chest pain Status: Acute Assessment and Plan: Patient presented with atypical chest pain that has resolved. ACS ruled out with negative troponins EKG reviewed with no changes GI etiology considered given epigastric location. Patient does admit to taking Aleve 2 times per week which has been discontinued. Continue Protonix. No evidence of bleeding. If pain is persistent, would benefit from outpatient EGD. (2) Low back pain: Code(s): M54.50 - Low back pain, unspecified Status: Acute Assessment and Plan: Patient reports persistent low back pain worsened with activity or bending and associated tingling of bilateral lower extremities. No saddle anesthesia, loss of bowel or bladder control, radicular pain Patient reports previous benefit from physical therapy 1 year ago but now symptoms have worsened Appreciate PT/OT eval Supportive care. Ice and heat. Analgesics as needed. Avoid NSAIDs. No acute fracture or traumatic malalignment of the lumbar spine on CT (3) Degenerative joint disease (DJD) of lumbar spine: Code(s): M47.816 - Spondylosis without myelopathy or radiculopathy, lumbar region Status: Acute Assessment and Plan: Lumbar CT spine obtain due to complaints of low back pain as above Severe degenerative disc disease and facet arthropathy contributing to multilevel severe neural foraminal and central canal narrowing Discussed case with Neurosurgery (Dr. Ayala) MRI of the lumbar spine has been ordered for further evaluation Outpatient follow-up with Neurosurgery following completion of MRI (4) Abnormal computed tomography angiography (CTA): Code(s): R93.89 - Abnormal findings on diagnostic imaging of other specified body structures Status: Acute Assessment and Plan: Stat reading CTA report showed asymmetric low-attenuation noted in the anterior aspect of the nonaneurysmal abdominal aorta and a near infrarenal location. This does not have the typical appearance of atherosclerotic plaque which is noted in the more distal infrarenal abdominal aorta. Differential would include mural thrombus or mural embolus. Heparin drip initiated on presentation based on initial reading. Following further evaluation and review of final radiology report, there is calcified atherosclerotic plaque of the aortic aneurysm without evidence of dissection, thrombus, or embolus Heparin drip discontinued on 11/04 No further intervention required (5) Essential (primary) hypertension: Code(s): I10 - Essential (primary) hypertension Status: Acute Assessment and Plan: Blood pressure reviewed and has been well controlled. Last BP 116/79 Continue home losartan Monitor blood pressure trends Additional Plan Patient is hemodynamically stable and may be downgraded to regular medical floor Subjective Date/time seen: 11/05/21 15:34 Interval history: Date of service: 11/05/2021 Maria Dolores Rodrigues is 81-year-old female with a history of hypertension, hyperlipidemia, and GERD who is seen in follow-up for atypical chest pain and low back pain. She is feeling much better today. She has not had any episodes of chest pain. No arm pain, jaw pain, epigastric pain, sweats, nausea, vomiting. Denies shortness of breath. She does endorse low back discomfort that she describes as a burning. She has not had any episodes of tingling in her feet today. She had a small bowel movement. Notes she has been urinating a bit more frequently than normal for her, but reports she has been drinking more water than typical. Denies dysuria or hematuria. Appetite is good. She has been able to walk around without difficulty today. Denies also coordination, unsteadiness, poor balance, gait changes. Review of Systems Review of Systems: All systems reviewed & are unremarkable e
--- NOTE | 2021-11-05 19:25 | PC.NURSE ---
Faxed MRI report to Dr. Ayala
== END 2021-11-05 18:30 | disposition home or self-care (01) ==
LOC: ANHED 09:08 → ANHIMU 10:31
PROVIDERS: Emergency Medicine; Admitting Provider Student in an Organized Health Care Education/Training Program; Emergency Provider Emergency Medicine; PCP Family Medicine Adolescent Medicine; Visit Provider Physician Assistant
DX: R07.89 Other chest pain (principal); M54.50 Low back pain, unspecified; M47.816 Spondylosis without myelopathy or radiculopathy, lumbar region; K21.9 Gastro-esophageal reflux disease without esophagitis; I10 Essential (primary) hypertension; R93.89 Abnormal findings on diagnostic imaging of other specified body structures; Z90.49 Acquired absence of other specified parts of digestive tract; Z20.822 Contact with and (suspected) exposure to COVID-19
CPT/HCPCS: 36415; 71045; 71275; 72131; 72148; 74174; 80048; 80053; 84484; 85025; 85610; 85730; 93005; 96365; 96366; 97165; 99285; A9270; C9803; G0378; J1644; Q9967; U0003; U0005

== ENCOUNTER 2022-02-17 15:07 | Emergency (ER) | payer MEDICARE, SELFPAY ==
[2022-02-17 15:18] VITALS: BP 151/86; PULSE 76; RESP 18; TEMP 37.1; O2SAT 97
--- NOTE | 2022-02-17 15:53 | ED.SKABFB ---
HPI - Skin/Abscess/Foreign Bdy General Chief complaint: Skin/Abscess/Foreign Body Stated complaint: Rash Time Seen by Provider: 02/17/22 15:30 Source: patient Mode of arrival: ambulatory Limitations: no limitations History of Present Illness HPI narrative: Ms. Rodrigues is an 81-year-old female patient presenting to the clinic today with complaints of a rash to her right arm, right leg, and to the left posterior neck. She reports that this began yesterday. States that the rash is itching. She denies any environmental changes or any known insect bites. She denies being out side working in [employer] or out in the [employer]. Related Data Home Medications Medication Instructions Recorded Confirmed bimatoprost 0.01 % eye drops 1 drop ophthalmic (eye) HS 09/08/19 02/17/22 (Lumigan) ascorbic acid (vitamin C) 500 mg 500 mg PO DAILY 11/22/19 02/17/22 tablet (Vitamin C) cholecalciferol (vitamin D3) 10 10 mcg PO DAILY 11/22/19 02/17/22 mcg (400 unit) tablet acetaminophen 325 mg capsule 325 mg PO ONCE PRN Pain 05/21/21 02/17/22 (Tylenol) Allergies Allergy/AdvReac Type Severity Reaction Status Date / Time procaine Allergy Severe Difficulty Verified 02/17/22 15:39 Breathing-Novocain ciprofloxacin Allergy Intermediate crawled Verified 02/17/22 15:55 out of skin metronidazole Allergy Intermediate JETTERY, Verified 02/17/22 15:55 WANTS TO CRAW OUT OF HER SKIN Quinolones Allergy Intermediate JETTERY, Verified 02/17/22 15:55 WANTS TO CRAWL OUT OF HER SKIN Sulfa (Sulfonamide Allergy Intermediate Hives Verified 02/17/22 15:39 Antibiotics) lidocaine AdvReac Severe lost Verified 02/17/22 15:39 feeling Review of Systems Review of Systems: Pertinent positives per HPI. Patient denies any fever, chills, headache, visual changes, dizziness, cough, runny nose, sore throat, shortness of breath, chest pain, palpitations, nausea, vomiting, diarrhea, constipation, abdominal pain, or any urinary issues. PMFSH Past Medical History Medical History Allergy history, anesthetic Encounter for surgical aftercare following surgery on the skin and subcutaneous tissue GERD (gastroesophageal reflux disease) High blood cholesterol Infected sebaceous cyst of skin Normal colonoscopy 12/03 Repeat 12/13 Surgical History Surgical History H/O knee surgery History of excision of lesion Excision of skin lesion right posterior neck 05/21/21 History of laparoscopic cholecystectomy 11/29/19 Tumor of ovary removed in her 20s Family History Family History Father Family history of malignant neoplasm Cancer Mother High cholesterol Other Cerebrovascular accident Family history of cardiovascular disease Hypertension Social History Social History Social History: Ms. Rodrigues lives at home with her and is independent in her daily activities. Her PCP is Dr. Trammell. 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 She designates her as her surrogate decision maker and would like to be a full code. Smoking status: Never smoker Second hand tobacco smoke exposure: No Alcohol intake: current Alcohol use details: Rare alcohol Substance use: never Substance use type: does not use Gender identity (if verbalized by the patient): Female Sexual Orientation (if Verbalized by the Patient): Straight or Heterosexual Spiritual care concerns: No Agree to blood products: Yes Comments At the time of my signature, I reviewed and agree with the nursing past medical, surgical, social, and family history. There is no relevant family history pertinent to the patient complaint. Exam Narrative: General: Well-developed, well n
== END 2022-02-17 15:58 | disposition home or self-care (01) ==
PROVIDERS: Emergency Provider Nurse Practitioner Family; PCP Family Medicine Adolescent Medicine
DX: L50.9 Urticaria, unspecified (principal); K21.9 Gastro-esophageal reflux disease without esophagitis; E78.00 Pure hypercholesterolemia, unspecified
CPT/HCPCS: 99213; G0463

== ENCOUNTER → 2022-06-25 16:13 | Outpatient (CLI) | payer MEDICARE, SELFPAY ==
--- NOTE | ~2022-06-25 | XR_ITS ---
EXAM: XR knee RT min 4V DATE: 06/25/2022 16:24 HISTORY: medial right knee pain for 1 week no specific injury . COMPARISON: None available. FINDINGS: Decreased mineralization. No fracture or dislocation. No lytic or blastic lesion. Moderate medial joint space narrowing. Mild tricompartmental osteophytosis. Quadriceps enthesopathy. No erosi on or periosteal change. Soft tissues within normal limits. IMPRESSION: Tricompartmental right knee osteoarthritis, moderate in the medial compartment. Reviewed, dictated and finalized at location K. UNT ASSISTANT
== END ==
PROVIDERS: PCP Physician Assistant; Visit Provider Physician Assistant
DX: M25.561 Pain in right knee (principal); M17.11 Unilateral primary osteoarthritis, right knee
CPT/HCPCS: 73564

== ENCOUNTER 2022-10-12 02:54 | Emergency (ER) | payer MEDICARE, SELFPAY ==
--- NOTE | ~2022-10-12 | XR_ITS ---
EXAMINATION: XR chest 1V portable INDICATION: Hypertension TECHNIQUE: Portable AP chest at 0442 hours COMPARISON: 11/04/2021 FINDINGS: The lungs are free of acute opacities. No pleural effusion or pneumothorax. The cardiomedia stinal silhouette is normal. Surgical clips in the right upper quadrant are likely from prior cholecy stectomy. IMPRESSION: 1. No acute cardiopulmonary abnormality. Reviewed, dictated and finalized at location A.
--- NOTE | ~2022-10-12 | CT_ITS ---
EXAMINATION: CT brain wo con INDICATION: Headache COMPARISON: None TECHNIQUE: Standard unenhanced head CT. The dose-length product (DLP) was 605.33 mGy-cm. The mA was a djusted according to patient size. Iterative reconstruction technique was employed. FINDINGS: There is no acute intraparenchymal hemorrhage. No evidence of mass lesion. No evidence of a cute infarction. There is mild periventricular and subcortical hypodensity probably related to small vessel ischemic disease. There is mild prominence of the sulci and ventricles related to cerebral atr ophy. Intracranial calcified cerebral atherosclerosis is noted. There are no extra-axial collections. There is no mass effect or midline shift. Changes in the globes are likely from ocular lens surgery. The visualized sinuses and mastoid air cells are well aerated. IMPRESSION: 1. No acute intracranial abnormality. 2. Age related findings. Reviewed, dictated and finalized at location A.
[2022-10-12 02:57] VITALS: BP 169/86; PULSE 71; RESP 18; TEMP 36.6; O2SAT 100
[2022-10-12 03:19] VITALS: BP 183/109; PULSE 65; RESP 17; O2SAT 100
[2022-10-12 04:03] LABS: Basophils Percent Auto 0.5 % (0.2-1.2); Eosinophils Absolute Auto 0.2 K/mm3 (0-0.3); Eosinophils Percent Auto 1.9 % (0-4.4); Hematocrit 42.5 % (37.0-47.0); Immature Granulocyte Absolute 0.03 K/mm3 (0.00-0.031); Immature Granulocyte Percent A 0.4 % (0-0.5); Lymphocytes Absolute Auto 1.36 K/mm3 (0.9-3.2); Lymphocytes Percent Auto 17.2 % (18.3-44.2); Mean Corpuscular HGB Conc 32.9 g/dl (32-36); Mean Corpuscular Hemoglobin 30.9 pg (26-34); Mean Corpuscular Volume 93.8 fl (80-100); Mean Platelet Volume 9.8 fl (7.4-10.4); Monocytes Absolute Auto 0.4 K/mm3 (0.1-0.6); Monocytes Percent Auto 4.7 % (2.6-8.5); Neutrophils Absolute Auto 5.9 K/mm3 (1.3-6.7); Neutrophils Percent Auto 75.3 % (45.5-73.1); Platelet Count Result 218 k/mm3 (150-375); Red Blood Count 4.53 M/mm3 (4.2-5.4); Red Cell Distribution Width 12.4 % (11.5-14.5); White Blood Count 7.9 K/mm3 (4.5-10.0)
[2022-10-12 04:14] LABS: Alanine Aminotransferase 23 U/L (6-35); Albumin Level 4.5 g/dL (3.5-5.1); Alkaline Phosphatase 55 U/L (38-126); Anion Gap 4 mmol/L (8-16); Aspartate Amino Transferase 27 U/L (14-36); Bilirubin,Total 0.6 mg/dL (0.2-1.3); Blood Urea Nitrogen 12 mg/dL (7-17); Calcium 9.4 mg/dL (8.4-10.2); Carbon Dioxide 30 mmol/L (22-30); Chloride 104 mmol/L (98-107); Estimated CRCL calculation 66 ml/min; Estimated Glomerular Filt Rate > 60; Glucose 106 mg/dL (65-110); Potassium 4.2 mmol/L (3.4-5.0); Sodium 138 mmol/L (137-145)
--- NOTE | 2022-10-12 04:20 | ECG_ITS ---
Measurements Intervals [place] Rate: 63 P: 57 CO: 138 QRS: 3 QRSD: 93 T: 15 QT: 409 QTc: 419 Interpretive Statements SINUS RHYTHM NORMAL ELECTROCARDIOGRAM COMPARED TO ECG 11/04/2021 04:20:02 NO SIGNIFICANT CHANGES Electronically Signed On 10-12-2022 7:29:19 CDT by Bola Sepulveda M.D.
--- NOTE | 2022-10-12 04:21 | ED.RECABL ---
HPI - Recheck/Abnormal Lab/Rx General Chief Complaint: Recheck/Abnormal Lab/Rx Stated Complaint: elevated BP with pain on left side head pain Time Seen by Provider: 10/12/22 03:14 History of Present Illness HPI narrative: Patient is an 82-year-old female with a history of hypertension, glaucoma presenting with high blood pressure and headache. Patient states that she was laying in bed when she noticed discomfort on the left side of her head especially in the back. States that it felt a little tingly. States that she also feels like there is some tingling in her left cheek. Patient checked her blood pressure and found it to be 200 over 90s. Patient became concerned that her symptoms were related to her blood pressure so she continued checking it and it remained elevated. States that she drank some water and ate a banana but it remained high. She denies speech difficulties, ataxia, vision changes, focal numbness or weakness, chest pain, lightheadedness, shortness of breath, abdominal pain, nausea or vomiting, leg swelling. Patient's is at bedside and he denies any slurred speech or facial droop. Currently, the patient states that she is starting to feel improved. Related Data Home Medications Medication Instructions Recorded Confirmed bimatoprost 0.01 % eye drops 1 drop ophthalmic (eye) HS 09/08/19 06/25/22 (Lumigan) cholecalciferol (vitamin D3) 10 10 mcg PO DAILY 11/22/19 06/25/22 mcg (400 unit) tablet acetaminophen 325 mg capsule 325 mg PO ONCE PRN Pain 05/21/21 06/25/22 (Tylenol) brimonidine 0.2 %-timolol 0.5 % 1 drp ophthalmic (eye) 06/25/22 06/25/22 eye drops Allergies Allergy/AdvReac Type Severity Reaction Status Date / Time procaine Allergy Severe Difficulty Verified 10/12/22 02:55 Breathing-Novocain ciprofloxacin Allergy Intermediate crawled Verified 10/12/22 02:55 out of skin metronidazole Allergy Intermediate JETTERY, Verified 10/12/22 02:55 WANTS TO CRAW OUT OF HER SKIN Quinolones Allergy Intermediate JETTERY, Verified 10/12/22 02:55 WANTS TO CRAWL OUT OF HER SKIN Sulfa (Sulfonamide Allergy Intermediate Hives Verified 10/12/22 02:55 Antibiotics) lidocaine AdvReac Severe lost Verified 10/12/22 02:55 feeling Review of Systems Review of Systems: All systems reviewed & are unremarkable except as noted in HPI and below PMFSH Past Medical History Medical History Allergy history, anesthetic Encounter for surgical aftercare following surgery on the skin and subcutaneous tissue GERD (gastroesophageal reflux disease) High blood cholesterol Infected sebaceous cyst of skin Normal colonoscopy 12/03 Repeat 12/13 Surgical History Surgical History H/O knee surgery History of excision of lesion Excision of skin lesion right posterior neck 05/21/21 History of laparoscopic cholecystectomy 11/29/19 Tumor of ovary removed in her 20s Family History Family History Father Family history of malignant neoplasm Cancer Mother High cholesterol Other Cerebrovascular accident Family history of cardiovascular disease Hypertension Social History Social History Social History: Ms. Rodrigues lives at home with her and is independent in her daily activities. Her PCP is Dr. Trammell. 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 She designates her as her surrogate decision maker and would like to be a full code. Smoking status: Never smoker Second hand tobacco smoke exposure: No Alcohol intake: current Alcohol use details: Rare alcohol Substance use: never Substance use type: does not use Living arrangements: with family Occupation/Education: retired Gender identity (if verbalized
[2022-10-12 05:01] LABS: Troponin I < 0.012 ng/mL (0.000-0.034)
[2022-10-12 05:22] LABS: Prothrombin Time 13.1 Seconds (11.1-14.7)
[2022-10-12 05:23] LABS: Partial Thromboplastin Time 32.1 SECONDS (22.3-36.8)
== END 2022-10-12 07:25 | disposition home or self-care (01) ==
PROVIDERS: Emergency Provider Emergency Medicine; PCP Family Medicine
DX: R51.9 Headache, unspecified (principal); I10 Essential (primary) hypertension; E78.00 Pure hypercholesterolemia, unspecified; H40.9 Unspecified glaucoma; K21.9 Gastro-esophageal reflux disease without esophagitis
CPT/HCPCS: 36415; 70450; 71045; 80053; 84484; 85025; 85610; 85730; 93005; 96365; 99284; J0131

== ENCOUNTER → 2023-02-05 09:11 | Outpatient (CLI) | payer MEDICARE, SELFPAY ==
--- NOTE | ~2023-02-05 | XR_ITS ---
EXAMINATION: XR wrist RT min 3V DATE: 02/05/2023 09:38 INDICATION: Right wrist sprain TECHNIQUE: Posteroanterior, ulnar deviation, oblique, and lateral views of the right wrist were obtai cristy. COMPARISON: 02/15/2004 FINDINGS: 1 mm ulnar positive variance. There is new cystic change at the ulnar side of the lunate which could be seen with ulnocarpal impaction. Alignment is otherwise normal. No fracture. Interval progression o f now severe osteoarthritis at the first carpometacarpal joint. Moderate osteoarthritis at the first metacarpophalangeal and second and third distal interphalangeal joints and mild osteoarthritis at the remaining interphalangeal joints, the wrist and triscaphe joints. IMPRESSION: 1. No acute osseous abnormality. 2. Polyarticular osteoarthritis at the right hand and wrist, severe at the first carpometacarpal join t. 3. 1 mm ulnar positive or intraosseous cystic change at the ulnar side of the lunate which could be s een with ulnocarpal impaction. Reviewed, dictated and finalized at location A. IMPRESSION: 1. No acute osseous abnormality. 2. Polyarticular osteoarthritis at the right hand and wrist, severe at the firs t carpometacarpal joint. 3. 1 mm ulnar positive or intraosseous cystic change at the ulnar side of the l unate which could be seen with ulnocarpal impaction.
== END ==
PROVIDERS: PCP Family Medicine; Visit Provider Nurse Practitioner Family
DX: S63.501A Unspecified sprain of right wrist, initial encounter (principal); M15.9 Polyosteoarthritis, unspecified; T14.90XA Injury, unspecified, initial encounter
CPT/HCPCS: 73110

== ENCOUNTER 2023-09-08 13:07 | Emergency (ER) | payer MEDICARE, SELFPAY ==
--- NOTE | ~2023-09-08 | CT_ITS ---
EXAMINATION: CTA brain carotid DATE: 09/08/2023 16:14 INDICATION: numbness TECHNIQUE: Computed tomographic angiography (CTA) of the head was performed with 100 mL Omnipaque-350 intravenous contrast. Automated exposure control and iterative reconstruction technique were employe d. The dose-length product was 937.81 mGy-cm. Maximum intensity projection and volume rendered 3D-re constructions were created by the technologist on a separate workstation. COMPARISON: CT brain, same date. FINDINGS: CTA HEAD: No large vessel occlusion, aneurysm, high flow vascular malformation, nidus or extravasation. Severel y hypoplastic bilateral P1 segments. Dominant posterior circulation flow is via the bilateral posteri or communicating arteries. CTA NECK: Aortic arch and proximal great vessels: Normal arch anatomy. Minimal arch calcification. Right common carotid, carotid bifurcation, and internal carotid artery: Mild calcified plaque at the bifurcation and bulb.There is 0% stenosis of the proximal right internal carotid artery relative to n ormal distal artery lumen diameter (NASCET criteria). Left common carotid, carotid bifurcation, and internal carotid artery: Mild calcified plaque at the b ifurcation and bulb.There is 0% stenosis of the proximal left internal carotid artery relative to nor mal distal artery lumen diameter (NASCET criteria). Vertebral arteries: No significant plaque or stenosis. Moderate plaque at the bilateral vertebral art corazon origins. Vertebral arteries are codominant. Other findings: Degenerative changes in the cervical spine. Prominent bilateral submandibular glands. IMPRESSION: No large vessel intracranial occlusion, high-grade intracranial stenosis, or aneurysm. No carotid or vertebral artery occlusion, dissection, or significant stenosis. Prominent bilateral submandibular glands, correlate clinically. Reviewed, dictated and finalized at location K. IMPRESSION: No large vessel intracranial occlusion, high-grade intracranial stenosis, or an eurysm. No carotid or vertebral artery occlusion, dissection, or significant stenosis. Prominent bilateral submandibular glands, correlate clinically.
--- NOTE | ~2023-09-08 | CT_ITS ---
EXAMINATION: CT brain wo con DATE: 09/08/2023 13:30 INDICATION: Sudden onset of headache, left orbital area TECHNIQUE: Computed tomography (CT) of the head was performed without intravenous contrast. The mA wa s adjusted according to patient size. Iterative reconstruction technique was employed. Exam dose: 52 9.67 mGy-cm total exam DLP. COMPARISON: October 12, 2022 CT brain FINDINGS: Bilateral vertebral artery calcifications and bilateral carotid siphon internal carotid art corazon calcifications. There is nonspecific diminished attenuation of the cerebral white matter, likely due to chronic small vessel ischemic changes. No intracranial mass lesion or hemorrhage or cerebrovascular accident, midline shift or mass effect i s detected. No subdural or epidural hematoma is detected. The paranasal sinuses and mastoid air cells are well-developed and aerated. No fracture or bone destruction of the cranial vault. IMPRESSION: Cerebral atherosclerosis and chronic small vessel ischemic changes of the cerebral white matter No acute intracranial finding Reviewed, dictated and finalized at Location A. Reviewed, dictated and finalized at location B.
[2023-09-08 13:51] VITALS: BP 181/94; PULSE 65; RESP 18; TEMP 36.8; O2SAT 100
--- NOTE | 2023-09-08 14:54 | ED.GENADULT ---
HPI - General Adult General Chief complaint: Headache <Charlotte Hager October, - Last Filed: 09/08/23 14:58> Stated complaint: left sided head pain <Charlotte Hager October, - Last Filed: 09/08/23 14:58> Time Seen by Provider: 09/08/23 14:54 <Charlotte Hager October,N - Last Filed: 09/08/23 14:58> Focused HPI: Maria Dolores Rodrigues is an 83 y/o female who presents today with reports that she was sitting and watching TV at around 1200 and she started to get pain to the left side of her forehead it was sudden and severe / she went to lay down and the pain got worse she got back up / and she was having some numbness the left side of her teeth. She reports the headache is gone/ but she states she checked her b/p and it was 190's systolic GENERAL: Well-appearing, well-nourished, and in no acute distress. HEAD: Normocephalic, atraumatic. CHEST: Clear to auscultation. ?No respiratory distress. HEART: Regular rate and rhythm.? NEURO: ?Alert and oriented x3. Patient screened in triage and initial orders placed.? ?Additional care and disposition to be based upon?diagnostic testing and treatment. <Charlotte Hager October, Last Filed: 09/08/23 14:58> Related Data Home medications: Home Medications Medication Instructions Recorded Confirmed bimatoprost 0.01 % eye drops 1 drop ophthalmic (eye) HS 09/08/19 04/08/23 (Lumigan) cholecalciferol (vitamin D3) 10 10 mcg PO DAILY 11/22/19 04/08/23 mcg (400 unit) tablet acetaminophen 325 mg capsule 325 mg PO ONCE PRN Pain 05/21/21 04/08/23 (Tylenol) brimonidine 0.2 %-timolol 0.5 % 1 drp ophthalmic (eye) 06/25/22 04/08/23 eye drops <Charlotte Hager October, - Last Filed: 09/08/23 14:58> Allergies/adverse reactions: Allergies Allergy/AdvReac Type Severity Reaction Status Date / Time procaine Allergy Severe Difficulty Verified 04/08/23 08:48 Breathing-Novocain ciprofloxacin Allergy Intermediate crawled Verified 04/08/23 08:48 out of skin metronidazole Allergy Intermediate JETTERY, Verified 04/08/23 08:48 WANTS TO CRAW OUT OF HER SKIN Quinolones Allergy Intermediate JETTERY, Verified 04/08/23 08:48 WANTS TO CRAWL OUT OF HER SKIN Sulfa (Sulfonamide Allergy Intermediate Hives Verified 04/08/23 08:48 Antibiotics) lidocaine AdvReac Severe lost Verified 04/08/23 08:48 feeling <Charlotte Hager October, DIGITAL MARKETING ANALYST - Last Filed: 09/08/23 14:58> Review of Systems Review of Systems: All systems as dictated in HPI <Antoni Montaño PA-C - Last Filed: 09/09/23 03:14> PMFSH Past Medical History Medical History: Medical History Allergy history, anesthetic Allergy to anesthetic Encounter for surgical aftercare following surgery on the skin and subcutaneous tissue GERD (gastroesophageal reflux disease) High blood cholesterol Infected sebaceous cyst of skin Normal colonoscopy 12/03 Repeat 12/13 <Charlotte Nesbitt, DIGITAL MARKETING ANALYST - Last Filed: 09/08/23 14:58> Surgical History Surgical History: Surgical History H/O knee surgery History of excision of lesion Excision of skin lesion right posterior neck 05/21/21 History of laparoscopic cholecystectomy 11/29/19 Tumor of ovary removed in her 20s <Charlotte Hager October, DIGITAL MARKETING ANALYST - Last Filed: 09/08/23 14:58> Family History Family History: Family History Father Family history of malignant neoplasm Cancer Mother High cholesterol Other Cerebrovascular accident Family history of cardiovascular disease Hypertension <Charlotte Hager October, DIGITAL MARKETING ANALYST - Last Filed: 09/08/23 14:58> Social History Social History: Social History Social History: Ms. Rodrigues lives at home with her and is independent in her daily activities. Her PCP is Dr. Trammell. 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
[2023-09-08 15:43] LABS: Basophils Percent Auto 0.3 % (0.2-1.2); Eosinophils Absolute Auto 0.2 K/mm3 (0-0.3); Eosinophils Percent Auto 1.5 % (0-4.4); Hematocrit 47.7 % (37.0-47.0); Hemoglobin 15.3 g/dL (12.0-15.0); Immature Granulocyte Absolute 0.04 K/mm3 (0.00-0.031); Immature Granulocyte Percent A 0.3 % (0-0.5); Lymphocytes Absolute Auto 1.61 K/mm3 (0.9-3.2); Lymphocytes Percent Auto 13.5 % (18.3-44.2); Mean Corpuscular HGB Conc 32.1 g/dl (32-36); Mean Corpuscular Volume 93.5 fl (80-100); Mean Platelet Volume 9.9 fl (7.4-10.4); Monocytes Absolute Auto 0.4 K/mm3 (0.1-0.6); Monocytes Percent Auto 3.7 % (2.6-8.5); Neutrophils Absolute Auto 9.6 K/mm3 (1.3-6.7); Neutrophils Percent Auto 80.7 % (45.5-73.1); Platelet Count Result 218 k/mm3 (150-375); Red Cell Distribution Width 12.7 % (11.5-14.5); White Blood Count 11.9 K/mm3 (4.5-10.0)
[2023-09-08 15:53] LABS: Alanine Aminotransferase 25 U/L (6-35); Albumin Level 4.9 g/dL (3.5-5.1); Alkaline Phosphatase 76 U/L (38-126); Anion Gap 6 mmol/L (8-16); Aspartate Amino Transferase 40 U/L (14-36); Bilirubin,Total 0.9 mg/dL (0.2-1.3); Blood Urea Nitrogen 10 mg/dL (7-17); Calcium 9.9 mg/dL (8.4-10.2); Carbon Dioxide 30 mmol/L (22-30); Chloride 104 mmol/L (98-107); Estimated CRCL calculation 66 ml/min; Estimated Glomerular Filt Rate > 60; Glucose 94 mg/dL (65-110); Potassium 4.2 mmol/L (3.4-5.0); Sodium 140 mmol/L (137-145)
[2023-09-08 15:54] LABS: INR 0.9; Prothrombin Time 12.9 Seconds (11.1-14.7)
[2023-09-08 15:55] LABS: Partial Thromboplastin Time 29.9 Seconds (22.3-36.8)
[2023-09-08 16:16] LABS: Appearance Urine Clear (Clear); Bacteria Urine None Seen /hpf; Bilirubin Urine Negative (Negative); Blood Urine Negative (Negative); Color Urine Yellow (Yellow); Glucose Urine UA Negative (Negative); Ketones Urine Negative (Negative); Leukocyte Esterase Ur Trace LEU/UL (Negative); Nitrate Urine Negative (Negative); Non Pathogenic Casts 0-2; Protein Urine Negative (Negative); RBC Urine 0-2 /hpf (0-2); Squamous Epithelial Cell Urine None Seen /hpf (Few); Urobilinogen Urine 0.2 mg/dL (<2.0); WBC Urine 0-5 /hpf (0-3); pH Urine 7.5 (5.0-9.0)
[2023-09-08 16:18] LABS: Specific Grav Ur 1.004 (1.001-1.035)
[2023-09-08 16:19] LABS: Add Urine Microscopic? YES
[2023-09-08 21:34] VITALS: BP 150/99; PULSE 88; RESP 16; TEMP 37.1; O2SAT 99
[2023-09-08 21:42] VITALS: BP 152/96
== END 2023-09-08 22:02 | disposition home or self-care (01) ==
PROVIDERS: Nurse Practitioner Family; Emergency Provider Physician Assistant; PCP Family Medicine
DX: R51.9 Headache, unspecified (principal); K21.9 Gastro-esophageal reflux disease without esophagitis; E78.00 Pure hypercholesterolemia, unspecified; Z90.49 Acquired absence of other specified parts of digestive tract
CPT/HCPCS: 36415; 70450; 70496; 70498; 80053; 85025; 85610; 85730; 99284; Q9967

== ENCOUNTER 2024-03-04 16:12 | Outpatient (CLI) | payer MEDICARE, SELFPAY ==
--- NOTE | ~2024-03-04 | XR_ITS ---
Clinical Indication: Covid 19, cough PA and lateral views of the chest: Comparison: 10/12/2022 Findings: The lungs are clear, without evidence of focal consolidation or pleural effusion. Cardiome diastinal silhouette is within normal limits. Bones and soft tissues are unremarkable. Impression: Normal chest. Reviewed, dictated and finalized at location . Impression: Normal chest.
== END 2024-03-04 16:13 | disposition home or self-care (01) ==
PROVIDERS: PCP Family Medicine; Visit Provider Family Medicine
DX: U07.1 COVID-19 (principal)
CPT/HCPCS: 71046

== ENCOUNTER 2024-07-22 13:15 | Outpatient (CLI) | payer MEDICARE, SELFPAY ==
--- NOTE | ~2024-07-22 | MM_ITS ---
EXAMINATION: MM diagnostic haylie BI w santiago HISTORY: Breast tenderness TECHNIQUE: Additional 3-D tomosynthesis images of the breasts were performed and synthetic 2-D images were generated. CAD analysis was submitted and interpreted. COMPARISON: 07/31/2017 BREAST PARENCHYMAL COMPOSITION: Not dense: There are scattered areas of fibroglandular density. FINDINGS: The breasts are stable. No suspicious masses, calcifications or architectural distortion in either breast to suggest malignancy. IMPRESSION: 1. No evidence for malignancy in either breast. 2. Routine yearly screening mammogram and regular clinical breast examination are recommended. BI-RADS Category 1: Negative Reviewed, dictated and finalized at location A. DELIVERY PROFESSIONAL IMPRESSION: 1. No evidence for malignancy in either breast. 2. Routine yearly screening mammogram and regular clinical breast examination a re recommended. BI-RADS Category 1: Negative
--- OUTSIDE RECORDS SUMMARY | 2024-07-22 14:01 | XMS_ITS | Continuity of Care Document ---
Author Organization [facility] Address [address] [place] [address] Phone Care Team Providers Care Armed Custom Protection Officer Name Role Phone Prabhu Winters Unavailable Unavailable [...] Diagnoses Date Provider Providers Copied on Encounter [facility], [address], [place], [place], [id number], [place] tel:[phone] [facility] No Information Nov-0 1-201 0 Singh Pelletier. [address] [place], [place], [place], [place]. tel:[phone] Referring Provider: Prabhu Webster, [address], [place], [place]. tel:[phone] [facility], [address] [place] [address] [address], [place], [place], [id number], [place] tel:[phone] [facility] No Information Oct-0 4-201 0 Singh Pelletier. [address], [place], [place], [place]. tel:[phone] Referring Provider: Chris Leal OD A, [address], [place], [place], [place]. tel:[phone] [facility], [address], [place], [place], [id number], [place] tel:[phone] [facility] No Information Sep-3 0-201 0 Leal OD Chris. [address] , [address], [place], [address], [place]. tel:[phone] [facility], [address], [place], [place], [id number], [place] tel:[phone] [facility] No Information Sep-2 7-201 0 Leal OD Chris. [address] , [address], [place], [address], [place]. tel:[phone] Referring Provider: Chris Leal OD A, [address], [place], [place]. tel:[phone] [facility], [address], [place], [place], [id number], [place] tel:[phone] [facility] No Information Sep-0 9-201 0 Leal OD Chris. [address] , [address], [place], [address], [place]. tel:[phone] Office/outpati ent Visit, Est [facility], [address], [place], [place], [address], [place] tel:[phone] [facility] No Information Aug-1 2-201 0 Doisy Edward. [address] , [address], [place], [address], [place]. tel:[phone] [facility], [address], [place], [place], [id number], [place] tel:[phone] [facility] No Information Aug-0 5-201 0 Leal OD Chris. [address] [facility] , [address], [place], [place], [place]. tel:[phone] [facility], [address], [place], [place], [address], [place] tel:[phone] [facility] No Information Tony-2 9-201 0 Leal OD Chris. [address] , [address], [place], [address], [place]. tel:[phone] [facility], [address], [place], [place], [address], [place] tel:[phone] [facility] No Information Tony-2 2-201 0 Leal OD Chris. [address] , [address], [place], [address], [place]. tel:[phone] Office/outpati ent Visit, Est [facility], [address], [place], [place], [address], [place] tel:[phone] [facility] No Information Feb-0 8-201 0 Doisy Edward. [address] , [address], [place], [address], [place]. tel:[phone] Referring Provider: Zach Lee, [address], [place], [place]. tel:[phone] Office/outpati ent Visit, [facility], [address] [place] [address] [address], [place], [place], [address], [place] tel:[phone] [facility] No Information 0 5200 [address] Francine Serrano. [address] , [address], [place], [place], [place]. tel:[phone] [facility], [address] [place] [address] [address], [place], [place], [address], [place] tel:[phone] [facility] No Information 200 9 Francine Serrano. [facility] [address], [address], [place], [place], [place]. tel:[phone] Referring Provider: Zach Lee, [address], [place], [place]. tel:[phone] Office/outpati ent Visit, [facility], [address] [place] [address] [address], [place], [place], [address], [place] tel:[phone] [facility] No Information 9 Francine Serrano. [facility] [address] , [address], [place], [place], [place]. tel:[phone] Office/outpati ent Visit, [facility], [address] [place] [address] [address], [place], [place], [id number], [place] tel:[phone] [facility] No Information 3200 8 Francine Serrano. [address], [address], [place], [place], [place]. tel:[phone] [facility], [address], [place], [place], [address], [place] tel:[phone] [facility] No Information Raza-0 2-200 8 Francine Serrano. [address] , [address], [place], [place], . tel:[phone] Referring Provider: Zach Lee, [facility] [facility] [address], [place], [place]. tel:[phone] Office/outpati ent Visit, Est [facility], [address], [place], [place], [address], [place] tel:[phone] [facility] No Information Jean-2 5-200 8 Francine Serrano. [facility] [address], [address], [place], [place], [place]. tel:[phone] Referring Provider: Zach Lee, [facility] [address], [place], [place]. tel:[phone] Office/outpati ent Visit, Est [facility], [address], [place], [place], [id number], [place] tel:[phone] [facility] [place] No Information Sep-2 1-200 7 Francine Serrano. [facility] [address], [address], [place], [place], [place]. tel:[phone] [facility], [address], [place], [place], [address], [place] tel:[phone] [facility] No Information May-1 6-200 7 Fracnine Serrano. [address] [facility] , [address], [place], [place], [place]. tel:[phone] [facility], [address], [place], [place], [address], [place] tel:[phone] [facility] No Information 0 7-200 7 Juany Barajas. [address] , [address], [place], [address], [place]. tel:[phone] Referring Provider: Jenn Washington, [address], [place], [address]. tel:[phone] [facility], [address], [place], [place], [address], [place] tel:[phone] [facility] No Information 0 3-200 7 Singh Pelletier. [address] [place], . tel:[phone] Office Consultation [facility], [address] [place] [address] [address], [place], [place], [address], [place] tel:[phone] [facility] No Information 9200 7 Singh Pelletier. [address] [place], [place], [place]. tel:[phone] Referring Provider: Murray Winters, [address] [place], [address]. tel:[phone] [facility], [address], [place], [place], [address], [place] tel:[phone] [place] [address] No Information 8-200 7 Francine Serrano. [address] [facility] , [address], [place], [place], [place]. tel:[phone] [facility], [address], [place], [place], [address], [place] tel:[phone] [facility] No Information 7-200 7 Juany Barajas. [address], [place], [place], [place]. tel:[phone] Family History Family Member Type Diagnosis Age At Onset No Information Payers Payer name Insurance type Covered green party ID Ashley patiño(s) No Information Social [...]
--- OUTSIDE RECORDS SUMMARY | 2024-07-22 14:02 | XMS_ITS | Clinical Summary ---
Author Organization [facility] [address] Address [address] [place] [address] Care Team Providers Care Medical Biller Name Role Phone Bola Rodney MD Primary Care Provider [phone] Allergies Active Allergy Reactions Criticality Noted Date Comments Ciprofloxacin Other (See comments) Low 03/30/2021 Crawled out of skin Lidocaine Other (See comments) Low 03/30/2021 Lost feeling Metronidazole Unknown 03/30/2021 Prenat W/O Ani-Iron Cb,Fum-Fa Unknown 03/30/2021 Procaine Other (See comments) Low 03/30/2021 Lost feeling Quinolones Unknown 03/30/2021 Sulfa (Sulfonamide Antibiotics) Hives Medium 03/30/2021 Medications losartan (COZAAR) 50 mg tablet TAKE 1 TABLET BY MOUTH ONCE DAILY FOR BLOOD PRESSURE 01/31/2021 Active bimatoprost (LUMIGAN) 0.01 % ophthalmic drops 1 drop nightly Active brimonidine-reyna oloL (COMBIGAN) 0.2-0.5 % ophthalmic solution Active vit D3-vit P-yiqpfqpmd-lri s [id number] onbz-aci-kc-mg tablet Take by mouth Active cholecalciferol (Vitamin D3) 1,000 unit capsule Take 1 capsule (1,000 Units total) by mouth daily Active acetaminophen (TYLENOL) 500 mg tablet Take 1 tablet (500 mg total) by mouth daily 2 Tablets by mouth tid Active hydroCHLOROthia zide (HYDRODIURIL) 12.5 mg tablet Take 1 tablet (12.5 mg total) by mouth daily 11/13/2022 Active vitamins A,C,E-zinc-martha er (ICaps AREDS) 4,296 mcg-226 mg-90 mg capsule Take by mouth Activ e bevacizumab (AVASTIN) 25 mg/mL injection Shots in right eye Active atorvastatin (LIPITOR) 40 mg tablet Take 1 tablet (40 mg total) by mouth daily 90 tablet 1 04/23/2024 04/23/20 Active Active Problems Problem Noted Date Diagnosed Date Nonrheumatic aortic valve stenosis 03/16/2024 Mixed hyperlipidemia 07/12/2021 Atypical chest pain 03/30/2021 Essential hypertension, benign 03/30/2021 Chronic fatigue 03/30/2021 Surgical History Surgery Date Site/Laterality Comments CHOLECYSTECTOMY CYST REMOVAL Medical History Medical History Date Comments Chest pain Hypertension Glaucoma Constipation Diverticulitis Hyperlipidemia Acid indigestion Cataract Arthritis Family History Medical History Relation Name Comments Cancer Father Bladder infection Mother Dementia Mother No Known Problems Sister Relation Name Status Comments Father (Age 41) Mother (Age 96) Sister Alive Social History Tobacco Use Types Packs/Day Years Used Date Smoking Tobacco: Never Smokeless Tobacco: Never Tobacco Cessation:Counseling Given: Not Answered Personal Safety Answer Date Recorded Getting School Help Needed Not on file 06/04 Comments Unknown Sex and Gender Information Value Date Recorded Sex Assigned at Not on file 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 Gender Identity Not on file Sexual Orientation Not on file Obstetrics History Last Filed Vital Signs Vital Sign Reading Time Taken Comments Blood Pressure 150/80 03/24/2024 2:17 PM CDT Pulse 68 03/16/2024 2:19 PM CDT Temperature - - Respiratory Rate - - Oxygen Saturation 97% 03/16/2024 2:19 PM CDT Inhaled Oxygen Concentration - - Weight 72.6 kg (160 lb) 03/16/2024 2:19 PM CDT Height 157.5 cm (5' 2 ) 03/16/2024 2:19 PM CDT Body Mass Index 29.26 03/16/2024 2:19 PM CDT Plan of Treatment Health Maintenance Due Date Last Done Comments Depression Screening 1940 Fall Risk Assessment 1940 Osteoporosis Screening-Bone Density Scan 1940 Pneumococcal vaccine 65+ (1 of 2 - PCV) 1946 DTaP/Tdap/Td Vaccine (1 - Tdap) 09/07/1951 Hepatitis B Screening 1958 Zoster Vaccine (1 of 2) 09/07/1959 Well Visit 65+ 2005 Covid-19 Vaccine (3 - Pfizer risk series) 10/12/2020 09/14/2020, 08/18/2020 Influenza Vaccine (#1) 2024 Insurance [employer] Care Teams Medical Biller Relationship Specialty Start Date End Date Bola Rodney MD PCP - General Family Medicine 04/11/22
--- OUTSIDE RECORDS SUMMARY | 2024-07-22 14:02 | XMS_ITS | Encounter Summary ---
Author Organization [facility] Address 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
--- OUTSIDE RECORDS SUMMARY | 2024-07-22 14:02 | XMS_ITS | Referral Summary ---
Author Organization [facility] [address] Address [address] [place] [address] Care Team Providers Care Wire Puller Name Role Phone Bola Rodney MD Primary Care Provider [phone] Allergies Active Allergy Reactions Criticality Noted Date [...] 0.2-0.5 % ophthalmic solution Active vit D3-vit U-qlnzijhgr-xvl s [id number] snon-urm-ew-mg tablet Take by mouth Active cholecalciferol (Vitamin [...] Essential hypertension, benign 03/30/2021 Chronic fatigue 03/30/2021 Social History Tobacco Use Types Packs/Day Years Used Date Smoking Tobacco: Never Smokeless Tobacco: Never Tobacco Cessation:Counseling Given: Not Answered Personal Safety Answer Date Recorded Getting School Help Needed Not on file 06/04 Comments Unknown Sex and Gender Information Value Date Recorded Sex Assigned at Not on file 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 MEDICARE Address: [address] [address] [place] [address] [address] [facility] MEDICARE Address: [address] [address] [place] [address] Care Teams Wire Puller Relationship Specialty Start Date End Date Bola Rodney MD PCP - General Family Medicine 04/11/22
--- OUTSIDE RECORDS SUMMARY | 2024-07-22 14:02 | XMS_ITS | Clinical Summary ---
Author Organization [facility] Address [address] 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
--- OUTSIDE RECORDS SUMMARY | 2024-07-22 14:02 | XMS_ITS | Encounter Summary ---
Author Organization [facility] Address [address] [place] [address] Care Team Providers Care Radar Air Traffic Controller Name Role Phone Unavailable Primary Care Provider Unavailabl e Encounter Details Date Type Department Care Team (Late st Contact Info) Description 01/04/1999 Outpatient Historical [facility] Augusto Vera MD Social History Tobacco Use Types Packs/Day Years Used Date Smoking Tobacco: Never Assessed Comments Unknown Sex and Gender Information Value Date Recorded Sex Assigned at Not on file Legal Sex Female 3:30 AM PLUG MAKER Gender Identity Not on file Sexual Orientation Not on file documented as of this encounter Plan of Treatment Not on file documented as of this encounter Visit Diagnoses Not on filedocumented in this encounter
== END 2024-07-22 13:16 | disposition home or self-care (01) ==
LOC: ANHIMG 13:16
PROVIDERS: PCP Family Medicine; Visit Provider Family Medicine
DX: N64.4 Mastodynia (principal)
CPT/HCPCS: 77062; 77066; G0279

== ENCOUNTER 2024-09-23 07:48 | Outpatient (CLI) | payer MEDICARE, SELFPAY ==
--- NOTE | ~2024-09-23 | MR_ITS ---
MRI of the cervical spine Clinical History: Radiculopathy Technique: Axial T2-weighted and gradient images, and sagittal T1-weighted, T2-weighted, and STIR nacho ges were acquired. Findings: There is no fracture or subluxation of the cervical spine. Vertebral bodies maintain normal height and alignment. No suspicious bone marrow signal abnormality seen. At C2-C3, there is minimal disc bulge. No spinal canal stenosis, cord compression, or neural foramina l narrowing. At C3-C4, there is mild to moderate degenerative distended. There is mild disc osteophyte complex wit h bilateral facet arthropathy. There is mild bilateral neural foraminal narrowing, right worse than l eft. No canal stenosis or cord compression. At C4-C5, there is moderate degenerative disc narrowing. There is mild disc osteophyte complex. There is bilateral neural foraminal narrowing with bilateral facet arthropathy. Probable minimal canal frances nosis without vishal cord compression. At C5-C6, there is moderate degenerative disc narrowing. There is disc osteophyte complex with mild c anal stenosis but no vishal cord compression. There is bilateral neural foraminal narrowing, left wors e than right. At C6-C7, there is minimal disc bulge with mild facet arthropathy. There is probable left neural fora kait narrowing. No right neural foraminal narrowing. No canal stenosis or cord compression. No abnormal signal seen in the spinal cord. Paravertebral soft tissues are unremarkable. Impression: Moderate degenerative spondylitic changes, as above. Reviewed, dictated and finalized at [facility]. Impression: Moderate degenerative spondylitic changes, as above.
--- OUTSIDE RECORDS SUMMARY | 2024-09-23 07:57 | XMS_ITS | Continuity of Care Document ---
Author Organization [facility] Address [address] [place] [address] Phone Care Team Providers Care Online Merchandiser Name Role Phone Prabhu Winters Unavailable Unavailable [...] located within [facility], [address], [place], [place], [address], [place] tel:[phone] SEC [facility] No Information Nov-0 1-201 0 Singh Pelletier. [address] [place], [place], [place], [place]. tel:[phone] Referring Provider: Prabhu Wesbter, [address] [place], [place], [place]. tel:[phone] [facility], [address] [place] [address] [address], [place], [place], [address], [place] tel:[phone] SEC [facility] No Information Oct-0 4-201 0 Singh Pelletier. [address] [place], [place], [place], [place]. tel:[phone] Referring Provider: Chris Leal OD A, [address], [place], [place], [place]. tel:[phone] [facility], [address], [place], [place], [address], [place] tel:[phone] SEC [facility] No Information Sep-3 0-201 0 Leal OD Chris. [address] , [address], [place], [address], [place]. tel:[phone] [facility], [address], [place], [place], [address], [place] tel:[phone] [facility] No Information Sep-2 7-201 0 Leal OD Chris. [address] , [address], [place], [address], [place]. tel:[phone] Referring Provider: Chris Leal OD A, [address], [place], [place], [place]. tel:[phone] [facility], [address], [place], [place], [address], [place] tel:[phone] [facility] No Information Sep-0 9-201 0 Leal OD Chris. [address] , [address], [place], [address], [place]. tel:[phone] Office/outpati ent Visit, Est [facility], [address], [place], [place], [address], [place] tel:[phone] [facility] No Information Aug-1 2-201 0 Doisy Edward. [address] , [address], [place], [address], [place]. tel:[phone] [facility], [address], [place], [place], [address], [place] tel:[phone] [facility] No Information Aug-0 5-201 0 Leal OD Chris. [address] [facility] , [address], [place], [place], [place]. tel:[phone] [facility], [address], [place], [place], [address], [place] tel:[phone] [facility] No Information Tony-2 9-201 0 Leal OD Chris. [address] , [address], [place], [address], [place]. tel:[phone] [facility], [address], [place], [place], [address], [place] tel:[phone] [facility] No Information Tony-2 2-201 0 Leal OD Chris. [address] , [address], [place], [address], [place]. tel:[phone] Office/outpati ent Visit, Est [facility], [address], [place], [place], [address], [place] tel:[phone] [facility] No Information Feb-0 8-201 0 Doisy Edward. [address] , [address], [place], [address], [place]. tel:[phone] Referring Provider: Zach Lee, [address], [place], [place], [place]. tel:[phone] Office/outpati ent Visit, [facility], [address] [place] [address] [address], [place], [place], [address], [place] tel:[phone] [facility] No Information 0 5200 9 Francine Serrano. [address] , [address], [place], [place], [place]. tel:[phone] [facility], [address] [place] [address] [address], [place], [place], [address], [place] tel:[phone] [facility] No Information 200 9 Francine Serrano. [facility] [address], [address], [place], [place], [place]. tel:[phone] Referring Provider: Zach Lee, [address], [place], [place]. tel:[phone] Office/outpati ent Visit, [facility], [address] [place] [address] [address], [place], [place], [address], [place] tel:[phone] [facility] No Information 9 Francine Serrano. [facility] [address] , [address], [place], [place], [place]. tel:[phone] Office/outpati ent Visit, [facility], [address] [place] [address] [address], [place], [place], [address], [place] tel:[phone] [facility] No Information 3200 8 Francine Serrano. [address], [address], [place], [place], [place]. tel:[phone] [facility], [address], [place], [place], [address], [place] tel:[phone] [facility] No Information Raza-0 2-200 8 Francine Serrano. [address], [place], [place], . tel:[phone] Referring Provider: Zach Lee, [facility] [facility] [address], [place], [place]. tel:[phone] Office/outpati ent Visit, Est [facility], [address], [place], [place], [address], [place] tel:[phone] [facility] No Information Jean-2 5-200 8 Francine Serrano. [facility] [address], [address], [place], [place], [place]. tel:[phone] Referring Provider: Zach Lee, [facility] [address], [place], [place]. tel:[phone] Office/outpati ent Visit, Est [facility], [address], [place], [place], [address], [place] tel:[phone] [facility] No Information Sep-2 1-200 7 Francine Serrano. [facility] [address], [address], [place], [place], [place]. tel:[phone] [facility], [address], [place], [place], [address], [place] tel:[phone] [facility] No Information May-1 6-200 7 Francine Serrano. [address] [facility] , [address], [place], [place], [place]. tel:[phone] [facility], [address], [place], [place], [address], [place] tel:[phone] [facility] No Information 0 7-200 7 Juany Barajas. [address], [place], [address], [place]. tel:[phone] Referring Provider: Jenn Washington, [address], [place], [address]. tel:[phone] [facility], [address], [place], [place], [address], [place] tel:[phone] [facility] No Information 0 3-200 7 Singh Pelletier. [address] [place], [place], [place], . tel:[phone] Office Consultation [facility], [address] [place] [address] [address], [place], [place], [address], [place] tel:[phone] [facility] No Information 9200 7 Singh Pelletier. [address] [place], [place], [place], [place]. tel:[phone] Referring Provider: Murray Winters, [address] [place], [address]. tel:[phone] [facility], [address], [place], [place], [address], [place] tel:[phone] [place] [address] No Information 8-200 7 Francine Serrano. [address] [facility] , [address], [place], [place], [place]. tel:[phone] [facility], [address], [place], [place], [address], [place] tel:[phone] [facility] No Information 7-200 7 Juany Barajas. [address], [place], [place], [place]. tel:[phone] Family History Family Member Type Diagnosis Age [...]
--- OUTSIDE RECORDS SUMMARY | 2024-09-23 07:57 | XMS_ITS | Clinical Summary ---
Author Organization [facility] Address [address] 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
--- OUTSIDE RECORDS SUMMARY | 2024-09-23 07:57 | XMS_ITS | Clinical Summary ---
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
--- OUTSIDE RECORDS SUMMARY | 2024-09-23 07:57 | XMS_ITS | Encounter Summary ---
Author Organization [facility] Address 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
--- OUTSIDE RECORDS SUMMARY | 2024-09-23 07:57 | XMS_ITS | Encounter Summary ---
Author Organization [facility] Address 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
--- OUTSIDE RECORDS SUMMARY | 2024-09-23 07:57 | XMS_ITS | Referral Summary ---
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
== END 2024-09-23 07:49 | disposition home or self-care (01) ==
PROVIDERS: PCP Family Medicine; Visit Provider Nurse Practitioner Family
DX: M47.812 Spondylosis without myelopathy or radiculopathy, cervical region (principal)
CPT/HCPCS: 72141

== ENCOUNTER 2024-09-27 10:21 | Outpatient (CLI) | payer MEDICARE, SELFPAY ==
--- NOTE | ~2024-09-27 | DEXA_ITS ---
Bone Density Report Name: ISAAC KERR Age: 84 Sex: Female Ethnicity: White Date of : 1940 Indication: postmenopausal; screening for osteoporosis; height loss; Referring Provider: ELLIOTT SERRANO Study: Bone densitometry was performed. Exam Date: September 27, 2024 Accession number: [id number] Bone Density: Region BMD T-score Z-score Classification AP Spine(L1-L4) 0.948 -0.9 1.9 Normal Femoral Neck (Left) 0.633 -1.9 0.5 Osteopenia Total Hip (Left) 0.856 -0.7 1.6 Normal Femoral Neck (Right) 0.654 -1.8 0.7 Osteopenia Total Hip (Right) 0.896 -0.4 1.9 Normal Total Hip Mean 0.876 -0.6 1.8 Normal World Health Organization criteria for BMD impression classify patients as: Normal (T-score at or above -1.0), Osteopenia (T-score between -1.0 and -2.5), or Osteoporosis (T-score at or below -2.5). 10-year Fracture Risk(1): Major Osteoporotic Fracture 15% Hip Fracture 4.4% Reported Risk Factors: [place] (), Neck BMD=0.633, BMI=31.8 (1) FRAX(R) Version 3.08. Fracture probability calculated for an untreated patient. Fracture probability may be lower if the patient has received treatment. Clinical Information Provided by Patient: Has used the following medications: Vitamin D Patient maximum height was 62.0 Menopause Age: 49 No regular weight bearing exercise Drinks caffeinated beverages Onset of menses at age 13 Number of children 3 Impression: The patient has low bone mass, based on the Left Femoral Neck T-score. The patient has an estimated ten-year risk of hip fracture of 4.4% and an estimated ten-year risk of major fracture of 15%, based on the WHO FRAX algorithm. Discussion: BONE DENSITY IS LOW AT ONE OR MORE SKELETAL SITES. THE PATIENT'S BMD AND CLINICAL RISK FACTORS CONTRIBUTE TO THIS PATIENT'S INCREASED RISK OF FRACTURE. This patient's lowest T-score is low at one or more skeletal sites. It meets the World Health Organization's (WHO) criteria for ?low bone mass? (T-score between -1.0 and -2.5). The patient's 10-year risk of hip fracture as calculated by FRAX exceeds the threshold where pharmacological therapy is recommended by the National Osteoporosis Foundation (NOF). However, all treatment decisions require clinical judgment and consideration of individual patient factors, including patient preferences, comorbidities, previous drug use, risk factors not captured in the FRAX model (e.g., frailty, falls, vitamin D deficiency, increased bone turnover, interval significant decline in bone density) and possible under or overestimation of fracture risk by FRAX. The patient should follow a healthful lifestyle (good nutrition with adequate calcium and vitamin D, and appropriate weight-bearing exercise). Follow-Up: Consider a repeat BMD and Vertebral Fracture Assessment (VFA) exam in 2 years or sooner if medically necessary, to reassess this patient's status. Reported by: FAUSTINO on 09/27/2024 10:52:00 AM. Reviewed, dictated and finalized at location [facility] SEPULVED[facility]
--- OUTSIDE RECORDS SUMMARY | 2024-09-27 11:48 | XMS_ITS | Clinical Summary ---
Author Organization [facility] Address [address] 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
--- OUTSIDE RECORDS SUMMARY | 2024-09-27 11:48 | XMS_ITS | Encounter Summary ---
Author Organization [facility] Address 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
--- OUTSIDE RECORDS SUMMARY | 2024-09-27 11:48 | XMS_ITS | Referral Summary ---
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
--- OUTSIDE RECORDS SUMMARY | 2024-09-27 11:48 | XMS_ITS | Encounter Summary ---
Author Organization [facility] Address [address] [place] [address] Care Team Providers Care Curriculum And Instruction Director Name Role Phone Unavailable Primary Care Provider Unavailabl e Encounter Details Date Type Department Care Team (Late st Contact Info) Description 07/28/[address] 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
--- OUTSIDE RECORDS SUMMARY | 2024-09-27 11:48 | XMS_ITS | Continuity of Care Document ---
Author Organization [facility] Address [address] [place] [address] Phone Care Team Providers Care Straddle Truck Operator Name Role Phone Prabhu Winters Unavailable Unavailable [...] Diagnoses Date Provider Providers Copied on Encounter [facility], [address], [place], [place], [address], [place] tel:[phone] [facility] No Information Nov-0 1-201 0 Singh Pelletier. [address], [place], [facility], [place]. tel:[phone] Referring Provider: Prabhu Webster, [address], [place], [facility]. tel:[phone] [facility], [address] [place] [address] [address], [place], [place], [address], [place] tel:[phone] [facility] No Information Oct-0 4-201 0 Singh Pelletier. [address], [place], [facility], [place]. tel:[phone] Referring Provider: Chris Leal OD A, [address], [place], [facility]. tel:[phone] [facility], [address], [place], [place], [address], [place] tel:[phone] [facility] No Information Sep-3 0-201 0 Leal OD Chris. [address] , [address], [place], [address], [place]. tel:[phone] [facility], [address], [place], [place], [address], [place] tel:[phone] [facility] No Information Sep-2 7-201 0 Leal OD Chris. [address] , [address], [place], [address], [place]. tel:[phone] Referring Provider: Chris Leal OD A, [address], [place], [facility]. tel:[phone] [facility], [address], [place], [place], [address], [place] tel:[phone] [facility] No Information Sep-0 9-201 0 Leal OD Chris. [address] , [address], [place], [address], [place]. tel:[phone] Office/outpati ent Visit, Est [facility], [address], [place], [place], [address], [place] tel:[phone] [facility] No Information Aug-1 2-201 0 Doisy Edward. [address] , [address], [place], [address], [place]. tel:[phone] [facility], [address], [place], [place], [address], [place] tel:[phone] [facility] No Information Aug-0 5-201 0 Leal OD Chris. [address] [facility] , [address], [place], [facility], [place]. tel:[phone] [facility], [address], [place], [place], [address], [place] tel:[phone] [facility] No Information Tony-2 9-201 0 Leal OD Chris. [address] , [address], [place], [address], [place]. tel:[phone] [facility], [address], [place], [place], [address], [place] tel:[phone] [facility] No Information Tony-2 2-201 0 Leal OD Chris. [address] , [address], [place], [address], [place]. tel:[phone] Office/outpati ent Visit, Est [facility], [address], [place], [place], [address], [place] tel:[phone] [facility] No Information Feb-0 8-201 0 Doisy Edward. [address] , [address], [place], [address], [place]. tel:[phone] Referring Provider: Zach Lee, [address], [place], [facility]. tel:[phone] Office/outpati ent Visit, [facility], [address] [place] [address] [address], [place], [place], [address], [place] tel:[phone] [facility] No Information 0 5[address] Francine Serrano. [address] , [address], [place], [facility], [place]. tel:[phone] [facility], [address] [place] [address] [address], [place], [place], [address], [place] tel:[phone] [facility] No Information 200 9 Francine Serrano. [facility] [address] [address], [address], [place], [facility], [place]. tel:[phone] Referring Provider: Zach Lee, [address], [place], [facility]. tel:[phone] Office/outpati ent Visit, [facility], [address] [place] [address] [address], [place], [place], [address], [place] tel:[phone] [facility] No Information 9 Francine Serrano. [facility] [address] , [address], [place], [facility], [place]. tel:[phone] Office/outpati ent Visit, [facility], [address] [place] [address] [address], [place], [place], [address], [place] tel:[phone] [facility] No Information 3[address] 8 Francine Serrano. [address], [address], [place], [facility], [place]. tel:[phone] [facility], [address], [place], [place], [address], [place] tel:[phone] [facility] No Information Raza-0 2-200 8 Francine Serrano. [address] , [address], [place], [facility], . tel:[phone] Referring Provider: Zach Lee, [facility] [facility] [address], [place], [facility]. tel:[phone] Office/outpati ent Visit, Est [facility], [address], [place], [place], [address], [place] tel:[phone] [facility] No Information Jean-2 5-200 8 Francine Serrano. [facility] [address], [address], [place], [facility], [place]. tel:[phone] Referring Provider: Zach Lee, [facility] [address], [place], [facility]. tel:[phone] Office/outpati ent Visit, Est [facility], [address], [place], [place], [address], [place] tel:[phone] [facility] [place] No Information Sep-2 1-200 7 Francine Serrano. [facility] [address], [address], [place], [facility], [place]. tel:[phone] [facility], [address], [place], [place], [address], [place] tel:[phone] [facility] No Information May-1 6-200 7 Francine Serrano. [address] [facility] , [address], [place], [facility], [place]. tel:[phone] [facility], [address], [place], [place], [address], [place] tel:[phone] [facility] No Information 0 7-200 7 Juany Barajas. [address] , [address], [place], [address], [place]. tel:[phone] Referring Provider: Jenn Washington, [address], [place], [address]. tel:[phone] [facility], [address], [place], [place], [address], [place] tel:[phone] [facility] No Information 0 3-200 7 Singh Pelletier. [address], [facility], . tel:[phone] Office Consultation [facility], [address] [place] [address] [address], [place], [place], [address], [place] tel:[phone] [facility] No Information 9200 7 Singh Pelletier. [address], [facility], [place]. tel:[phone] Referring Provider: Murray Winters, [address] [place], [address]. tel:[phone] [facility], [address], [place], [place], [address], [place] tel:[phone] [place] [address] No Information 8-200 7 Francine Serrano. [address] [facility] , [address], [place], [facility], [place]. tel:[phone] [facility], [address], [place], [place], [address], [place] tel:[phone] [facility] No Information 7-200 7 Juany Barajas. [address] , [address], [place], [facility], [place]. tel:[phone] Family History Family Member Type Diagnosis Age At Onset No Information Payers Payer name Insurance type Covered alliance party ID Ashley patiño(s) No Information Social [...]
--- OUTSIDE RECORDS SUMMARY | 2024-09-27 11:48 | XMS_ITS | Clinical Summary ---
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
== END 2024-09-27 10:22 | disposition home or self-care (01) ==
LOC: ANHIMG 10:21
PROVIDERS: PCP Family Medicine; Visit Provider Family Medicine
DX: Z78.0 Asymptomatic menopausal state (principal); M85.852 Other specified disorders of bone density and structure, left thigh; M85.851 Other specified disorders of bone density and structure, right thigh
CPT/HCPCS: 77080

== ENCOUNTER 2025-01-13 00:24 | Emergency (ER) | payer MEDICARE, SELFPAY ==
--- NOTE | ~2025-01-13 | CT_ITS ---
EXAM: CTA brain carotid - 01/13/2025 8:58 CDT History: 84 years old Female with left eye visual symptoms TECHNIQUE: CT scan of the head without contrast. Subsequently CTA of the head and neck with intraveno us contrast was performed. 3-D reconstructed images of cerebral artery circulation were generated on a Step-In workstation. Automatic exposure control was used for this study. CONTRAST: 100 cc of Omnipaque 350 was used for this study COMPARISON: None available. FINDINGS: CT HEAD WITHOUT CONTRAST: BRAIN PARENCHYMA: Gomez-white differentiation is maintained.No intra-axial hemorrhage or midline shift . No evidence of intraaxial mass. Mild chronic volume loss with scattered white matter hypodensitie s compatible with chronic microvascular ischemic changes. VENTRICLES/ EXTRA-AXIAL SPACES: No extra-axial hemorrhage or fluid collection. No evidence of extra-a xial mass. No hydrocephalus. CALVARIUM AND SINUSES: No calvarial fracture. The visualized sinuses and mastoid air cells are clear . CTA: Patient is partially edentulous. Streak artifact from dental workup limits evaluation of subjacent an atomy. Normal branching pattern of the thoracic aorta. Great vessels of the neck are patent. RIGHT ANTERIOR CIRCULATION: Innominate and right common carotid artery is normal in caliber. No significant stenosis at the carotid bifurcation by NASCET criteria. Cervical segment of the internal carotid artery is normal in caliber. Cavernous and supraclinoid segm ents of the internal carotid artery patent. M1 segment and middle cerebral artery bifurcation are unremarkable. A1 segment, anterior communicating artery complex and A2 segment are within normal limits. LEFT ANTERIOR CIRCULATION: Left common carotid artery is normal in caliber. No significant stenosis at the carotid bifurcation by NASCET criteria. Cervical segment of the internal carotid artery is normal in caliber. Cavernous and supraclinoid segm ents of the internal carotid artery patent. M1 segment and middle cerebral artery bifurcation are unremarkable. A1 segment, anterior communicating artery complex and A2 segment are within normal limits. POSTERIOR CIRCULATION: Vertebral arteries are codominant and patent throughout the neck. Intradural vertebral arteries are normal in caliber and terminate as the basilar artery. Basilar artery is normal in caliber. P1 segments of cyst posterior cerebral arteries are atrophic and persistent origin of bilateral cerebral arteries is seen. The basilar artery terminates as superior cerebellar arteries. OTHER: Multilevel degenerative changes of the visualized cervical spine. Visualized lungs are clear. IMPRESSION: No evidence for acute intracranial hemorrhage or acute ischemic infarct on non-contrast CT. Unremarkable CTA of the head and neck. No evidence of cerebral artery aneurysm, stenosis or mass. *REFERENCES: NASCET CRITERIA: The degree of internal carotid artery (ICA) stenosis is based on NASCET criteria. No rmal is no stenosis. Mild is less than 50% stenosis. Moderate is 50-69% stenosis. Severe is 70-99% st enosis. Total occlusion is no detectable patent lumen. Reviewed, dictated and finalized at location A. IMPRESSION: No evidence for acute intracranial hemorrhage or acute ischemic infarct on non- contrast CT. Unremarkable CTA of the head and neck. No evidence of cerebral artery aneurysm , stenosis or mass. *REFERENCES: NASCET CRITERIA: The degree of internal carotid artery (ICA) stenosis is based on NASCET criteria. Normal is no stenosis. Mild is less than 50% stenosis. Mode rate is 50-69% stenosis. Severe is 70-99% stenosis. Total occlusion is no detec table patent lumen.
--- OUTSIDE RECORDS SUMMARY | 2025-01-13 00:27 | XMS_ITS | Referral Summary ---
Author Organization [facility] [place] [address] [place] [address] [address] [facility] [address] [place] [address] Care Team Providers Care Wreath Machine Tender Name Role Phone Bola Rodney MD Primary Care Provider [phone] Encounters Date Type Department Care Team Description 10/15/2024 Orders Only [facility] Cardiology [address] [place] [address] [address] [place] [address] ProviderZari MD 10/15/2024 10:30 AM CDT Office Visit [facility] Cardiology [address] [place] [address] [address] [place] [address] Daniel Adam MD Nonrheumatic aortic valve stenosis (Primary Dx); Mixed hyperlipidemia; Essential hypertension, benign; Chronic fatigue from Last 3 Months Allergies Active Allergy Reactions Criticality Noted Date [...] BY MOUTH ONCE DAILY FOR BLOOD PRESSURE Active bimatoprost (LUMIGAN) 0.01 % ophthalmic drops 1 drop nightly Active brimonidine-ti moloL (COMBIGAN) 0.2-0.5 % ophthalmic solution Active cholecalcifero l (Vitamin D3) 1,000 unit capsule Take 1 capsule (1,000 Units total) by mouth daily Active acetaminophen (TYLENOL) 500 mg tablet Take 1 tablet (500 mg total) by mouth daily 2 Tablets by mouth tid Active hydroCHLOROthi azide (HYDRODIURIL) 12.5 mg tablet Take 1 tablet (12.5 mg total) by mouth daily 3 Active vitamins A,C,E-zinc-endoscopy support specialist per (ICaps AREDS) 4,296 mcg-226 mg-90 mg capsule Take by mouth Active bevacizumab (AVASTIN) 25 mg/mL injection Shots in right eye Active atorvastatin (LIPITOR) 40 mg tablet Take 1 tablet by mouth once daily 90 tablet 5 Active atorvastatin (LIPITOR) 40 mg tablet Take 1 tablet by mouth once daily 90 tablet 5 025 Discontinued Active Problems Problem Noted Date Diagnosed Date Nonrheumatic aortic valve stenosis 03/16/2024 Mixed hyperlipidemia 07/12/2021 Atypical chest pain 03/30/2021 Essential hypertension, benign 03/30/2021 Chronic fatigue 03/30/2021 Social History Tobacco Use Types Packs/Day Years Used Date Smoking Tobacco: Never Smokeless Tobacco: Never Tobacco Cessation:Counseling Given: Not Answered Comments Unknown Sex and Gender Information Value Date Recorded Sex Assigned at Not on file 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 Gender Identity Not on file Sexual Orientation Not on file Last Filed Vital Signs Vital Sign Reading Time Taken Comments Blood Pressure 140/82 10/15/2024 10:50 AM CDT Pulse 67 10/15/2024 10:50 AM CDT Temperature - - Respiratory Rate - - Oxygen Saturation 97% 10/15/2024 10:50 AM CDT Inhaled Oxygen Concentration - - Weight 73 kg (161 lb) 10/15/2024 10:50 AM CDT Height 152.4 cm (5') 10/15/2024 10:50 AM CDT Body Mass Index 31.44 10/15/2024 10:50 AM CDT Plan of Treatment Not on file Insurance [facility] MEDICARE ADVANTAGE [facility] MED[facility] Address: [id number] [place] [address] [facility] MEDICARE ADVANTAGE [facility] MED[facility] Address: [address] [address] [place] [address] Care Teams Wreath Machine Tender Relationship Specialty Start Date End Date Bola Rodney MD PCP - General Family Medicine 04/11/22
--- OUTSIDE RECORDS SUMMARY | 2025-01-13 00:27 | XMS_ITS | Encounter Summary ---
Author Organization [facility] Address 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
--- OUTSIDE RECORDS SUMMARY | 2025-01-13 00:27 | XMS_ITS | Continuity of Care Document ---
Author Organization [facility] Address [address] [place] [address] Phone Care Team Providers Care Sr. Unix System Administrator Name Role Phone Prabhu Winters Unavailable Unavailable [...] Date Provider Providers Copied on Encounter SureFormerly [facility], [address], [place], [place], [id number], [place] tel:[phone] [facility] No Information Nov-0 1-201 0 Singh Pelletier. [address] [place], [place], [facility], [place]. tel:[phone] Referring Provider: Prabhu Webster, [address] [place], [place], [facility]. tel:[phone] [facility], [address] [place] [address] [address], [place], [place], [address], [place] tel:[phone] [facility] No Information Oct-0 4-201 0 Singh Pelletier. [address] [place], [facility], [place]. tel:[phone] Referring Provider: Chris Leal OD A, [address], [place], [place], [facility]. tel:[phone] [facility], [address], [place], [place], [address], [place] tel:[phone] [facility] No Information Sep-3 0-201 0 Leal OD Chris. [address] , [address], [place], [address], [place]. tel:[phone] [facility], [address], [place], [place], [address], [place] tel:[phone] [facility] No Information Sep-2 7-201 0 Leal OD Chris. [address] , [address], [place], [address], [place]. tel:[phone] Referring Provider: Chris Leal OD A, [address], [place], [facility]. tel:[phone] [facility], [address], [place], [place], [id number], [place] tel:[phone] [facility] No Information Sep-0 9-201 0 Leal OD Chris. [address], [place], [address], [place]. tel:[phone] Office/outpati ent Visit, Est [facility], [address], [place], [place], [id number], [place] tel:[phone] [facility] No Information Aug-1 2-201 0 Doisy Edward. [address] , [address], [place], [address], [place]. tel:[phone] [facility], [address], [place], [place], [address], [place] tel:[phone] [facility] No Information Aug-0 5-201 0 Leal OD Chris. [address], [place], [facility], [place]. tel:[phone] [facility], [address], [place], [place], [address], [place] tel:[phone] [facility] No Information Tony-2 9-201 0 Leal OD Chris. [address] , [address], [place], [address], [place]. tel:[phone] [facility], [address], [place], [place], [address], [place] tel:[phone] [facility] No Information Tony-2 2-201 0 Leal OD Chris. [address] , [address], [place], [address], [place]. tel:[phone] Office/outpati ent Visit, Est [facility], [address], [place], [place], [address], [place] tel:[phone] [facility] No Information Feb-0 8-201 0 Doisy Edward. [address] , [address], [place], [address], [place]. tel:[phone] Referring Provider: Zach Lee, [address], [place], [facility]. tel:[phone] Office/outpati ent Visit, [facility], [address] [place] [address] [address], [place], [place], [address], [place] tel:[phone] [facility] No Information 0 5[address] Francine Serrano. [address] , [address], [place], [facility], [place]. tel:[phone] [facility], [address] [place] [address] [address], [place], [place], [address], [place] tel:[phone] [facility] No Information 200 9 Francine Serrano. [facility] [address], [address], [place], [facility], [place]. tel:[phone] Referring Provider: Zach Lee, [address], [place], [facility]. tel:[phone] Office/outpati ent Visit, [facility], [address] [place] [address] [address], [place], [place], [address], [place] tel:[phone] [facility] No Information 9 Francine Serrano. [facility] , [address], [place], [facility], [place]. tel:[phone] Office/outpati ent Visit, [facility], [address] [place] [address] [address], [place], [place], [address], [place] tel:[phone] [facility] No Information 3200 8 Francine Serrano. [address], [address], [place], [facility], [place]. tel:[phone] [facility], [address], [place], [place], [address], [place] tel:[phone] [facility] No Information Raza-0 2-200 8 Francine Serrano. [address], [place], [facility], . tel:[phone] Referring Provider: Zach Lee, [facility] [facility] [address], [place], [facility]. tel:[phone] Office/outpati ent Visit, Est [facility], [address], [place], [place], [address], [place] tel:[phone] [facility] No Information Jean-2 5-200 8 Francine Serrano. [facility] [address], [address], [place], [facility], [place]. tel:[phone] Referring Provider: Zach Lee, [facility] [address], [place], [facility]. tel:[phone] Office/outpati ent Visit, Est [facility], [address], [place], [place], [address], [place] tel:[phone] [facility] [place] No Information Sep-2 1-200 7 Francine Serrano. [facility] [address], [address], [place], [facility], [place]. tel:[phone] [facility], [address], [place], [place], [address], [place] tel:[phone] [facility] No Information May-1 6-200 7 Francine Serrano. [address] , [address], [place], [facility], [place]. tel:[phone] [facility], [address], [place], [place], [address], [place] tel:[phone] [facility] No Information 0 7-200 7 Juany Barajas. [address], [place], [address], [place]. tel:[phone] Referring Provider: Jenn Washington, [address], [place], [address]. tel:[phone] [facility], [address], [place], [place], [address], [place] tel:[phone] [facility] No Information 0 3-200 7 Singh Pelletier. [address] [place], [facility], . tel:[phone] Office Consultation [facility], [address] [place] [address] [address], [place], [place], [address], [place] tel:[phone] [facility] No Information 9200 7 Singh Pelletier. [address] [place], [facility], [place]. tel:[phone] Referring Provider: Murray Winters, [address] [place], [address]. tel:[phone] [facility], [address], [place], [place], [address], [place] tel:[phone] [place] [address] No Information 8-200 7 Francine Serrano. [address] , [address], [place], [facility], [place]. tel:[phone] [facility], [address], [place], [place], [address], [place] tel:[phone] [facility] No Information 7-200 7 Juany Barajas. [address], [place], [facility], [place]. tel:[phone] Family History Family Member Type Diagnosis Age At Onset No Information Payers Payer name Insurance type Covered democrat ID Ashley patiño(s) No Information Social History [...]
--- OUTSIDE RECORDS SUMMARY | 2025-01-13 00:27 | XMS_ITS | Clinical Summary ---
Author Organization [facility] Address [address] 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
--- OUTSIDE RECORDS SUMMARY | 2025-01-13 00:27 | XMS_ITS | Encounter Summary ---
Author Organization [facility] Address 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
--- OUTSIDE RECORDS SUMMARY | 2025-01-13 00:27 | XMS_ITS | Clinical Summary ---
Author Organization [facility] [address] Address [address] [place] [address] Care Team Providers Care Senior Web Engineer Name Role Phone Bola Rodney MD Primary Care Provider [phone] Allergies Active Allergy Reactions Criticality Noted Date [...] BY MOUTH ONCE DAILY FOR BLOOD PRESSURE 1 Active bimatoprost (LUMIGAN) 0.01 % ophthalmic drops [...] total) by mouth daily 3 Active vitamins A,C,E-zinc-messenger copy per (ICaps AREDS) 4,296 mcg-226 mg-90 mg [...] Essential hypertension, benign 03/30/2021 Chronic fatigue 03/30/2021 Encounters Date Type Department Care Team Description 10/15/2024 10:30 AM CDT Office Visit [facility] Cardiology [address] 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
[2025-01-13 00:53] VITALS: BP 186/108; PULSE 70; RESP 18; TEMP 36.4; O2SAT 95
[2025-01-13 05:36] VITALS: BP 173/100; PULSE 89; RESP 16; O2SAT 100
[2025-01-13 07:13] VITALS: BP 165/79; PULSE 68; RESP 20; O2SAT 99
--- OUTSIDE RECORDS SUMMARY | 2025-01-13 07:46 | XMS_ITS | Clinical Summary ---
Author Organization [facility] [address] Address [address] [place] [address] Care Team Providers Care Wellness Coordinator Name Role Phone Bola Rodney MD Primary Care Provider [phone] Allergies Active Allergy Reactions Criticality Noted Date [...] Description 10/15/2024 10:30 AM CDT [address] [facility] Medical [facility] Cardiology [address] [facility] [address] [place] [phone] Daniel Adam MD Nonrheumatic aortic valve stenosis (Primary Dx); Mixed hyperlipidemia; Essential hypertension, benign; Chronic fatigue 10/15/[address] 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
--- OUTSIDE RECORDS SUMMARY | 2025-01-13 07:46 | XMS_ITS | Encounter Summary ---
Author Organization [facility] Address 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
--- OUTSIDE RECORDS SUMMARY | 2025-01-13 07:46 | XMS_ITS | Encounter Summary ---
Author Organization [facility] Address 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
--- OUTSIDE RECORDS SUMMARY | 2025-01-13 07:46 | XMS_ITS | Clinical Summary ---
Author Organization [facility] Address [address] 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
--- OUTSIDE RECORDS SUMMARY | 2025-01-13 07:46 | XMS_ITS | Continuity of Care Document ---
Author Organization [facility] Address [address] [facility] [address] [place] [address] Phone Care Team Providers Care Blood Bank Calendar Control Clerk Name Role Phone Prabhu Winters Unavailable Unavailable [...] Date Provider Providers Copied on Encounter SureFormerly [facility], [address], [place], [place], [address], [place] tel:[phone] [facility] No Information Nov-0 1-201 0 Singh Pelletier. [address] [place], [place], [facility], [place]. tel:[phone] Referring Provider: Prabhu Webster, [address] [place], [place], [facility]. tel:[phone] [facility], [address] [place] [address] [address], [place], [place], [address], [place] tel:[phone] [facility] No Information Oct-0 4-201 0 Singh Pelletier. [address] [place], [place], [facility], [place]. tel:[phone] Referring Provider: Chris Leal OD A, [address], [place], [place], [facility]. tel:[phone] [facility], [address], [place], [place], [address], [place] tel:[phone] [facility] No Information Sep-3 0-201 0 Leal OD Chris. [address] , [address], [place], [address], [place]. tel:[phone] [facility], [address], [place], [place], [address], [place] tel:[phone] [facility] No Information Sep-2 7-201 0 Leal OD Chris. [address] , [address], [place], [address], [place]. tel:[phone] Referring Provider: Chris Leal OD A, [address], [place], [facility]. tel:[phone] [facility], [address], [place], [place], [address], [place] tel:[phone] [facility] No Information Sep-0 9-201 0 Leal OD Chris. [address] , [address], [place], [address], [place]. tel:[phone] Office/outpati ent Visit, Est [facility], [address], [place], [place], [address], [place] tel:[phone] [facility] No Information Aug-1 2-201 0 Doisy Edward. [address] , [address], [place], [address], [place]. tel:[phone] [facility], [address], [place], [place], [address], [place] tel:[phone] [facility] No Information Aug-0 5-201 0 Leal OD Chris. [address] [facility] , [address], [place], [facility], [place]. tel:[phone] [facility], [address], [place], [place], [address], [place] tel:[phone] [facility] No Information Tony-2 9-201 0 Leal OD Chris. [address] , [address], [place], [address], [place]. tel:[phone] [facility], [address], [place], [place], [address], [place] tel:[phone] [facility] No Information Tony-2 2-201 0 Leal OD Chris. [address] , [address], [place], [address], [place]. tel:[phone] Office/outpati ent Visit, Est [facility], [address], [place], [place], [address], [place] tel:[phone] [facility] No Information Feb-0 8-201 0 Doisy Edward. [address] , [address], [place], [address], [place]. tel:[phone] Referring Provider: Zach Lee, [address], [place], [facility]. tel:[phone] Office/outpati ent Visit, [facility], [address] [place] [address] [address], [place], [place], [address], [place] tel:[phone] [facility] No Information 0 5[address] Francine Serrano. [address] , [address], [place], [facility], [place]. tel:[phone] [facility], [address] [place] [address] [address], [place], [place], [address], [place] tel:[phone] [facility] No Information 200 9 Francine Serrano. [facility] [address], [address], [place], [facility], [place]. tel:[phone] Referring Provider: Zach Lee, [address], [place], [facility]. tel:[phone] Office/outpati ent Visit, [facility], [address] [place] [address] [address], [place], [place], [address], [place] tel:[phone] [facility] No Information 9 Francine Serrano. [facility] , [address], [place], [facility], [place]. tel:[phone] Office/outpati ent Visit, [facility], [address] [place] [address] [address], [place], [place], [address], [place] tel:[phone] [facility] No Information 3200 8 Francine Serrano. [address], [address], [place], [facility], [place]. tel:[phone] [facility], [address], [place], [place], [address], [place] tel:[phone] [facility] No Information Raza-0 2-200 8 Francine Serrano. [address] , [address], [place], [facility], . tel:[phone] Referring Provider: Zach Lee, [address] [facility] [address], [place], [facility]. tel:[phone] Office/outpati ent Visit, Est [facility], [address], [place], [place], [address], [place] tel:[phone] [facility] No Information Jean-2 5-200 8 Francine Serrano. [facility] [address], [address], [place], [facility], [place]. tel:[phone] Referring Provider: Zach Lee, [facility] [address], [place], [facility]. tel:[phone] Office/outpati ent Visit, Est [facility], [address], [place], [place], [address], [place] tel:[phone] [facility] [place] No Information Sep-2 1-200 7 Francine Serrano. [facility] [address], [address], [place], [facility], [place]. tel:[phone] [facility], [address], [place], [place], [address], [place] tel:[phone] [facility] No Information May-1 6-200 7 Francine Serrano. [address] , [address], [place], [facility], [place]. tel:[phone] [facility], [address], [place], [place], [address], [place] tel:[phone] [facility] No Information 0 7-200 7 Juany Barajas. [address] , [address], [place], [address], [place]. tel:[phone] Referring Provider: Jenn Washington, [address], [place], [address]. tel:[phone] [facility], [address], [place], [place], [address], [place] tel:[phone] [facility] No Information 0 3-200 7 Singh Pelletier. [address] [place], [place], [facility], . tel:[phone] Office Consultation [facility], [address] [place] [address] [address], [place], [place], [address], [place] tel:[phone] [facility] No Information 9200 7 Singh Pelletier. [address] [place], [place], [facility], [place]. tel:[phone] Referring Provider: Murray Winters, [address] [place], [address]. tel:[phone] [facility], [address], [place], [place], [address], [place] tel:[phone] [place] [address] No Information 8-200 7 Francine Serrano. [address] [facility] , [address], [place], [facility], [place]. tel:[phone] [facility], [address], [place], [place], [address], [place] tel:[phone] [facility] No Information 7-200 7 Juany Barajas. [address] , [address], [place], [facility], [place]. tel:[phone] Family History Family Member Type Diagnosis Age [...]
--- OUTSIDE RECORDS SUMMARY | 2025-01-13 07:46 | XMS_ITS | Referral Summary ---
Author Organization [facility] [address] [place] [address] 162 Address [address] [facility] [address] [place] [address] Care Team Providers Care Adjuster And Inspector Name Role Phone Bola Rodney MD Primary Care Provider [phone] Encounters Date Type Department Care Team Description 10/15/2024 Orders Only [facility] Cardiology [address] [place] [address] [address] [place] [address] ProviderZari MD 10/15/2024 10:30 AM CDT Office Visit [facility] Cardiology [address] [place] [address] [address] [place] [address] Daniel Adam MD Nonrheumatic aortic [...] total) by mouth daily 3 Active vitamins A,C,E-zinc-spectroscopist per (ICaps AREDS) 4,296 mcg-226 mg-90 mg [...] on file 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
[2025-01-13 08:26] LABS: Hematocrit 45.4 % (37.0-47.0); Hemoglobin 14.9 g/dL (12.0-15.0); Immature Granulocyte Percent A 0.3 % (0-0.5); Lymphocytes Absolute Auto 1.33 K/mm3 (0.9-3.2); Mean Corpuscular HGB Conc 32.8 g/dl (32-36); Mean Corpuscular Hemoglobin 29.7 pg (26-34); Mean Corpuscular Volume 90.6 fl (80-100); Nucleated Red Blood Cells Absolute Auto 0.000 K/mm3 (0.0-0.012); Nucleated Red Blood Cells Perc 0.0 % (0.0-0.2); Platelet Count Result 219 k/mm3 (150-375); Red Blood Count 5.01 M/mm3 (4.2-5.4); White Blood Count 8.8 K/mm3 (4.5-10.0)
[2025-01-13 08:47] LABS: Alanine Aminotransferase 26 U/L (6-35); Albumin Level 4.6 g/dL (3.5-5.1); Alkaline Phosphatase 75 U/L (38-126); Anion Gap 8 mmol/L (4-12); Aspartate Amino Transferase 42 U/L (14-36); Bilirubin,Total 0.5 mg/dL (0.2-1.3); Blood Urea Nitrogen 11 mg/dL (7-17); Calcium 9.5 mg/dL (8.4-10.2); Carbon Dioxide 31 mmol/L (22-30); Chloride 100 mmol/L (98-107); Estimated CRCL calculation 56 ml/min; Estimated Glomerular Filt Rate > 60; Glucose 102 mg/dL (65-110); Potassium 3.5 mmol/L (3.4-5.0); Sodium 139 mmol/L (137-145); Total Protein 8.0 g/dL (6.3-8.2)
--- NOTE | 2025-01-13 08:53 | ED.EYEPROB ---
HPI - Eye Problem General Chief complaint: Eye Problems Stated complaint: left eye blurry vision, chills Time Seen by Provider: 01/13/25 07:26 History of Present Illness HPI Narrative: Pt was watching TV last night and noticed flash in lateral left eye field of vision followed by wavy line in lateral vision. Pt describes a mild dull VIRGEN behind left eye and some blurry vision. Pt denies any other neuro symptoms. Pt has wet macular degeration to right eye. Pt aslo felt cold and chilled after episode. Related Data Home Medications ?Medication ?Instructions ?Recorded ?Confirmed ?Last Taken ?Type bimatoprost 0.01 % eye drops 1 drop ophthalmic (eye) HS 09/08/19 11/23/24 05/21/21 History (Lumigan) cholecalciferol (vitamin D3) 10 10 mcg PO DAILY 11/22/19 11/23/24 05/18/21 History mcg (400 unit) tablet acetaminophen 325 mg capsule 325 mg PO ONCE PRN Pain 05/21/21 11/23/24 05/19/21 History (Tylenol) brimonidine 0.2 %-timolol 0.5 % 1 drp ophthalmic (eye) 06/25/22 11/23/24 Unknown History eye drops atorvastatin 40 mg tablet mg PO 09/19/23 11/23/24 Unknown History bevacizumab 25 mg/mL intravenous intravitreal 09/19/23 11/23/24 Unknown History solution (Avastin) vitamins A,C,L-xqmy-ywrkio 4,296 1 cap PO BID 04/14/24 11/23/24 Unknown History mcg-226 mg-90 mg capsule (PreserVision AREDS) Allergies Allergy/AdvReac Type Severity Reaction Status Date / Time procaine Allergy Severe Difficulty Verified 11/23/24 12:41 Breathing-Novocain ciprofloxacin Allergy Intermediate crawled Verified 11/23/24 12:41 out of skin metronidazole Allergy Intermediate JETTERY, Verified 11/23/24 12:41 WANTS TO CRAW OUT OF HER SKIN Quinolones Allergy Intermediate JETTERY, Verified 11/23/24 12:41 WANTS TO CRAWL OUT OF HER SKIN Sulfa (Sulfonamide Allergy Intermediate Hives Verified 11/23/24 12:41 Antibiotics) lidocaine AdvReac Severe lost Verified 11/23/24 12:41 feeling Review of Systems Review of Systems: All systems reviewed & are unremarkable except as noted in HPI and below PMFSH Past Medical History Medical History Allergy to anesthetic Normal colonoscopy 12/03 Repeat 12/13 Allergy history, anesthetic Encounter for surgical aftercare following surgery on the skin and subcutaneous tissue GERD (gastroesophageal reflux disease) Infected sebaceous cyst of skin High blood cholesterol Surgical History Surgical History History of excision of lesion Excision of skin lesion right posterior neck 05/21/21 History of laparoscopic cholecystectomy 11/29/19 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 Rodrigues lives at home with her and is independent in her daily activities. Her PCP is Dr. Trammell. 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 She designates her as her surrogate decision maker and would like to be a full code. Smoking status: Never smoker Second hand tobacco smoke exposure: No Alcohol intake: current Alcohol use details: Rare alcohol Substance use: never Substance use type: does not use Living arrangements: with family Occupation/Education: retired Gender identity (if verbalized by the patient): Female Sexual Orientation (if Verbalized by the Patient): Straight or Heterosexual Spiritual care concerns: No Agree to blood products: Yes Exam Const: General: healthy appearing and no acute distress Nutritional Appearance: well nourished Orientation/consciousness: patient oriented x3 Limitations: no limitations HENMT: Head: normal to inspection Mouth: Yes Normal oral and palatal mucosa present Eyes: Conjunctivae: conjunctivae normal Pupils: Equal, round and reactive pupils present EOM: EOMs intact bilaterally Neck: Neck: normal visual inspection Chest: Chest palpation & inspection: normal inspection of the chest Resp: Effort & Inspection: normal respiratory effort Auscultation: clear to auscultation bilaterally Cardio: Rate: regular rate Rhythm: regular rhythm GI: GI Palp: Yes Soft to palpation and No Tenderness to palpation present (GI) Auscultation: normal bowel sounds Skin: General skin exam: normal color Wounds: no wounds Neuro: General: patient oriented x3, moves all extremities, no meningeal signs, no focal motor deficits and CN's II-XI intact bilaterally Cranial nerves: Yes Nystagmus not present Speech: normal speech Extrem: General: normal to inspection and no clubbing, cyanosis or edema Psych: Mental Status: mental status grossly normal Affect: normal affect Attitude: cooperative Course Vital Signs Vital signs: Vital Signs Temperature 97.5 F L 01/13/25 00:53 Pulse Rate 70 01/13/25 00:53 Respiratory Rate 18 01/13/25 00:53 Blood Pressure 186/108 H 01/13/25 00:53 Pulse Oximetry 95 01/13/25 00:53 Temperature 97.5 F L 01/13/25 00:53 Pulse Rate 68 01/13/25 07:13 Respiratory Rate 20 01/13/25 07:13 Blood Pressure 165/79 H 01/13/25 07:13 Pulse Oximetry 99 01/13/25 07:13 MDM - Eye Problem MDM Narrative Medical decision making narrative: pt has flash and wavy vision in lateral left visual field. will need to ruleout cva but seems like either migraine or possibly a retinal detachment. will get cta brain and then call [facility]. cta no acute process. labs unremarkable. discussed with Dr Gracia at [facility] and they will call her for appointment to check retina for detachment. Lab Data 01/13/25 08:17 01/13/25 08:17 Labs: Lab Results 01/13/25 Range/Units 08:17 WBC 8.8 (4.5-10.0) K/mm3 RBC 5.01 (4.2-5.4) M/mm3 Hgb 14.9 (12.0-15.0) g/dL Hct 45.4 (37.0-47.0) % MCV 90.6 (80-100) fl MCH 29.7 (26-34) pg MCHC 32.8 (32-36) g/dl RDW 12.5 (11.5-14.5) % Plt Count 219 (150-375) k/mm3 MPV 9.3 (7.4-10.4) fl Immature Gran % (Auto) 0.3 (0-0.5) % Neut % (Auto) 78.6 H (45.5-73.1) % Lymph % (Auto) 15.1 L (18.3-44.2) % [place] % (Auto) 4.5 (2.6-8.5) % Eos % (Auto) 1.0 (0-4.4) % Baso % (Auto) 0.5 (0.2-1.2) % Lymph # (Auto) 1.33 (0.9-3.2) K/mm3 [place] # (Auto) 0.4 (0.1-0.6) K/mm3 Eos # (Auto) 0.1 (0-0.3) K/mm3 Baso # (Auto) 0.0 (0.0-0.1) K/mm3 Abs Immat Gran (auto) 0.03 (0.00-0.031) K/mm3 Absolute Neuts (auto) 6.9 H (1.3-6.7) K/mm3 Absolute Nucleated RBC 0.000 (0.0-0.012) K/mm3 Nucleated RBC % 0.0 (0.0-0.2) % Sodium 139 (137-145) mmol/L Potassium 3.5 (3.4-5.0) mmol/L Chloride 100 (98-107) mmol/L Carbon Dioxide 31 H (22-30) mmol/L Anion Gap 8 (4-12) mmol/L BUN 11 (7-17) mg/dL Creatinine 0.56 L (0.7-1.0) mg/dL Estim Creat Clear Calc 56 ml/min Estimated GFR > 60 (59 - ) Glucose 102 (65-110) mg/dL Calcium 9.5 (8.4-10.2) mg/dL Total Bilirubin 0.5 (0.2-1.3) mg/dL AST 42 H (14-36) U/L ALT 26 (6-35) U/L Alkaline Phosphatase 75 (38-126) U/L Total Protein 8.0 (6.3-8.2) g/dL Albumin 4.6 (3.5-5.1) g/dL Discharge Plan Discharge Clinical Impression: Visual disturbance Patient Disposition: Home Condition: Stable Instructions: Antibiotic Form, Blurred Vision (ED) Additional Instructions: [facility] to call fro appointment. If worse call them or concerns come back to ER. Patient Language: Yi Prescriptions: No Action brimonidine-timolol 0.2-0.5 % drops 1 drp ophthalmic (eye) atorvastatin 40 mg tablet PO Avastin 25 mg/mL solution intravitreal Lumigan 0.01 % drops 1 drop EACH EYE HS PreserVision AREDS 4,296 mcg-226 mg-90 mg capsule 1 cap PO BID cephalexin 500 mg capsule 500 mg PO Q12H Qty: 10 0RF mupirocin [Centany] 2 % ointment 1 applic topical DAILY Qty: 22 0RF cholecalciferol (vitamin D3) 10 mcg (400 unit) Tablet 10 mcg PO DAILY acetaminophen [Tylenol] 325 mg Capsule 325 mg PO ONCE PRN (Reason: Pain) losartan 50 mg tablet 50 mg PO QAM Qty: 90 1RF hydrochlorothiazide 12.5 mg tablet See Rx Instructions .ROUTE .COMPLEX Qty: 90 1RF Dose Instruction: Take 1 tablet by mouth once daily Rx Instructions: Take 1 tablet by mouth once daily Follow-up/Referrals: Bola Rodney MD [Primary Care Provider] -
== END 2025-01-13 12:25 | disposition home or self-care (01) ==
PROVIDERS: Emergency Provider Emergency Medicine; PCP Family Medicine
DX: H53.9 Unspecified visual disturbance (principal); K21.9 Gastro-esophageal reflux disease without esophagitis
CPT/HCPCS: 36415; 70496; 70498; 80053; 85025; 99284; Q9967

== ENCOUNTER 2025-03-02 18:01 | Emergency (ER) | payer MEDICARE, SELFPAY ==
--- OUTSIDE RECORDS SUMMARY | 2010-04-23 08:45 | XMS_ITS | Continuity of Care Document ---
Author Organization [facility] Address [address] [place] [address] Phone Care Team Providers Care Water Resources Business Segment Leader Name Role Phone Prabhu Winters Unavailable Unavailable Procedures Procedure Date Eye Exam Established Pt Ophthalmoscopy, Subsequent Eye Exam & Treatment Ophthalmoscopy, Subsequent Eye Exam Established Pt Contact Lens Hydrophilic, Spherical Medical Tax Contact Lens Check Office/outpatient Visit, Est Contact Lens Check Contact Lens Check Eye Exam & Treatment Refraction Office/outpatient Visit, Est Fundus Photography W/ Report Office/outpatient Visit, Est Visual Field Examination(s) Office/outpatient Visit, Est Office/outpatient Visit, Est Visual Field Examination(s) Office/outpatient Visit, Est Fundus Photography W/ Report Office/outpatient Visit, Est Eye Exam Established Pt Visual Field Examination(s) Eye Exam Established Pt Ophthalmoscopy, Subsequent Office Consultation Eye Exam Established Pt Eye Exam, New Patient Advance Directives Directive Yes / No Effective Date File Name No Information Encounters Encounter Description Practice Location Reason(s) For Visit Diagnoses Date Provider Providers Copied on Encounter [facility], [address], [place], [place], [address], [place] tel:[phone] [facility] No Information Nov-0 1-201 0 Singh Pelletier. [address] [place], [facility], [place]. tel:[phone] Referring Provider: Prabhu Webster, [address] [place], [facility]. tel:[phone] [facility], [address] [place] [address] [address], [place], [place], [address], [place] tel:[phone] [facility] No Information Oct-0 4-201 0 Singh Pelletier. [address] [place], [facility], [place]. tel:[phone] Referring Provider: Chris Leal OD A, [address], [place], [place], [facility]. tel:[phone] [facility], [address], [place], [place], [address], [place] tel:[phone] [facility] No Information Sep-3 0-201 0 Leal OD Chris. [address], [place], [address], [place]. tel:[phone] [facility], [address], [place], [place], [address], [place] tel:[phone] [facility] No Information Sep-2 7-201 0 Leal OD Chris. [address] , [address], [place], [address], [place]. tel:[phone] Referring Provider: Chris Leal OD A, [address], [place], [facility]. tel:[phone] [facility], [address], [place], [place], [address], [place] tel:[phone] [facility] No Information Sep-0 9-201 0 Leal OD Chris. [address], [place], [address], [place]. tel:[phone] Office/outpati ent Visit, Est [facility], [address], [place], [place], [address], [place] tel:[phone] [facility] No Information Aug-1 2-201 0 Doisy Edward. [address] , [address], [place], [address], [place]. tel:[phone] [facility], [address], [place], [place], [address], [place] tel:[phone] [facility] No Information Aug-0 5-201 0 Leal OD Chris. [address] [facility] , [address], [place], [facility], [place]. tel:[phone] [facility], [address], [place], [place], [address], [place] tel:[phone] [facility] No Information Tony-2 9-201 0 Leal OD Chris. [address], [place], [address], [place]. tel:[phone] [facility], [address], [place], [place], [address], [place] tel:[phone] [facility] No Information Tony-2 2-201 0 Leal OD Chris. [address], [place], [address], [place]. tel:[phone] Office/outpati ent Visit, Est [facility], [address], [place], [place], [address], [place] tel:[phone] [facility] No Information Feb-0 8-201 0 Doisy Edward. [address], [place], [address], [place]. tel:[phone] Referring Provider: Zach Lee, [address], [place], [facility]. tel:[phone] Office/outpati ent Visit, [facility], [address] [place] [address] [address], [place], [place], [address], [place] tel:[phone] [facility] No Information 0 5200 9 Francine Serrano. [address] , [address], [place], [facility], [place]. tel:[phone] [facility], [address] [place] [address] [address], [place], [place], [address], [place] tel:[phone] [facility] No Information 200 9 Francine Serrano. [facility] [address], [address], [place], [facility], [place]. tel:[phone] Referring Provider: Zach Lee, [address], [place], [facility]. tel:[phone] Office/outpati ent Visit, [facility], [address] [place] [address] [address], [place], [place], [address], [place] tel:[phone] [facility] No Information 9 Francine Serrano. [facility] , [address], [place], [facility], [place]. tel:[phone] Office/outpati ent Visit, [facility], [address] [place] [address] [address], [place], [place], [address], [place] tel:[phone] [facility] No Information 3200 8 Francine Serrano. [address], [address], [place], [facility], [place]. tel:[phone] [facility], [address], [place], [place], [address], [place] tel:[phone] [facility] No Information Raza-0 2-200 8 Francine Serrano. [address], [place], [facility], . tel:[phone] Referring Provider: Zach Lee, [facility] [facility] [address], [place], [facility]. tel:[phone] Office/outpati ent Visit, Est [facility], [address], [place], [place], [address], [place] tel:[phone] [facility] No Information Jean-2 5-200 8 Francine Serrano. [facility] [address], [address], [place], [facility], [place]. tel:[phone] Referring Provider: Zach Lee, [facility] [address], [place], [facility]. tel:[phone] Office/outpati ent Visit, Est [facility], [address], [place], [place], [address], [place] tel:[phone] [facility] No Information Sep-2 1-200 7 Francine Serrano. [facility] [address], [address], [place], [facility], [place]. tel:[phone] [facility], [address], [place], [place], [address], [place] tel:[phone] [facility] No Information May-1 6-200 7 Francine Serrano. [address] , [address], [place], [facility], [place]. tel:[phone] [facility], [address], [place], [place], [address], [place] tel:[phone] [facility] No Information 0 7-200 7 Juany Barajas. [address], [place], [address], [place]. tel:[phone] Referring Provider: Jenn Washington, [address], [place], [address]. tel:[phone] [facility], [address], [place], [place], [address], [place] tel:[phone] [facility] No Information 0 3-200 7 Singh Pelletier. [address] [place], [facility], . tel:[phone] Office Consultation [facility], [address] [place] [address] [address], [place], [place], [address], [place] tel:[phone] [facility] No Information 9200 7 Singh Pelletier. [address] [place], [facility], [place]. tel:[phone] Referring Provider: Murray Winters, [address] [place], [address]. tel:[phone] [facility], [address], [place], [place], [address], [place] tel:[phone] [place] [address] No Information 8-200 7 Francine Serrano. [address] [facility] , [address], [place], [facility], [place]. tel:[phone] [facility], [address], [place], [place], [address], [place] tel:[phone] [facility] No Information 7-200 7 Juany Barajas. [address], [place], [facility], [place]. tel:[phone] Family History Family Member Type Diagnosis Age At Onset No Information Payers Payer name Insurance type Covered constitution party ID Ashley patiño(s) No Information Social History Type Description Quantity Date Captured Comments Sex Female Smoking Status No Information Chief Complaint And Reason For Visit No Information Reason For Referral Reason For Referral No Information History Of Present Illness Encounter Date Complaint History Of Prese nt Illness No Information Functional Status Date Functional Assessmen t No Information Instructions Date Instruction Additional Infor mation No Information Assessments Type Assessment Date No Information Patient Care Teams Name Effective Dates (start - stop) Status Members No Information
--- OUTSIDE RECORDS SUMMARY | 2010-04-23 08:45 | XMS_ITS | Continuity of Care Document ---
Author Organization [facility] Address [address] [facility] [place] [address] Phone Care Team Providers Care Branch Operation Evaluation Manager Name Role Phone Prabhu Winters Unavailable Unavailable [...] Diagnoses Date Provider Providers Copied on Encounter [facility], [address], [place], [place], [address], [place] tel:[phone] [facility] No Information Nov-0 1-201 0 Singh Pelletier. [address] [place], [facility], [place]. tel:[phone] Referring Provider: Prabhu Webster, [address] [place], [facility]. tel:[phone] [facility], [address] [place] [address] [address], [place], [place], [address], [place] tel:[phone] [facility] No Information Oct-0 4-201 0 Singh Pelletier. [address] [place], [facility], [place]. tel:[phone] Referring Provider: Chris Leal OD A, [address], [place], [facility]. tel:[phone] [facility], [address], [place], [place], [address], [place] tel:[phone] [facility] No Information Sep-3 0-201 0 Leal OD Chris. [address] , [address], [place], [address], [place]. tel:[phone] [facility], [address], [place], [place], [address], [place] tel:[phone] [facility] No Information Sep-2 7-201 0 Leal OD Chris. [address], [place], [address], [place]. tel:[phone] Referring Provider: Chris Leal OD A, [address], [place], [facility]. tel:[phone] [facility], [address], [place], [place], [address], [place] tel:[phone] [facility] No Information Sep-0 9-201 0 Leal OD Chris. [address] , [address], [place], [address], [place]. tel:[phone] Office/outpati ent Visit, Est [facility], [address], [place], [place], [address], [place] tel:[phone] [facility] No Information Aug-1 2-201 0 Doisy Edward. [address] , [address], [place], [address], [place]. tel:[phone] [facility], [address], [place], [place], [address], [place] tel:[phone] [facility] No Information Aug-0 5-201 0 Leal OD Chris. [address] [facility] , [address], [place], [facility], [place]. tel:[phone] [facility], [address], [place], [place], [address], [place] tel:[phone] [facility] No Information Tony-2 9-201 0 Leal OD Chris. [address] , [address], [place], [address], [place]. tel:[phone] [facility], [address], [place], [place], [address], [place] tel:[phone] [facility] No Information Tony-2 2-201 0 Leal OD Chris. [address] , [address], [place], [address], [place]. tel:[phone] Office/outpati ent Visit, Est [facility], [address], [place], [place], [address], [place] tel:[phone] [facility] No Information Feb-0 8-201 0 Doisy Edward. [address] , [address], [place], [address], [place]. tel:[phone] Referring Provider: Zach Lee, [address], [place], [facility]. tel:[phone] Office/outpati ent Visit, [facility], [address] [place] [address] [address], [place], [place], [address], [place] tel:[phone] [facility] No Information 0 5200 9 Francine Serrano. [address] , [address], [place], [facility], [place]. tel:[phone] [facility], [address] [place] [address] [address], [place], [place], [address], [place] tel:[phone] [facility] No Information 200 9 Francine Serrano. [facility] [facility] [address], [address], [place], [facility], [place]. tel:[phone] Referring Provider: Zach Lee, [address], [place], [facility]. tel:[phone] Office/outpati ent Visit, [facility], [address] [place] [address] [address], [place], [place], [address], [place] tel:[phone] [facility] No Information 9 Francine Serrano. [facility] , [address], [place], [facility], [place]. tel:[phone] Office/outpati ent Visit, [facility], [address] [place] [address] [address], [place], [place], [address], [place] tel:[phone] [facility] No Information 3200 8 Francine Serrano. [address], [address], [place], [facility], [place]. tel:[phone] [facility], [address], [place], [place], [address], [place] tel:[phone] [facility] No Information Raza-0 2-200 8 Francine Serrano. [address], [place], [facility], . tel:[phone] Referring Provider: Zach Lee, [facility] [facility] [address], [place], [facility]. tel:[phone] Office/outpati ent Visit, Est [facility], [address], [place], [place], [address], [place] tel:[phone] [facility] No Information Jean-2 5-200 8 Francine Serrano. [facility] [address], [address], [place], [facility], [place]. tel:[phone] Referring Provider: Zach Lee, [facility] [address], [place], [facility]. tel:[phone] Office/outpati ent Visit, Est [facility], [address], [place], [place], [address], [place] tel:[phone] [facility] No Information Sep-2 1-200 7 Francine Serrano. [facility] [address], [address], [place], [facility], [place]. tel:[phone] [facility], [address], [place], [place], [address], [place] tel:[phone] [facility] No Information May-1 6-200 7 Francine Serrano. [address] , [address], [place], [facility], [place]. tel:[phone] [facility], [address], [place], [place], [address], [place] tel:[phone] [facility] No Information 0 7-200 7 Juany Barajas. [address], [place], [address], [place]. tel:[phone] Referring Provider: Jenn Washington, [address], [place], [address]. tel:[phone] [facility], [address], [place], [place], [address], [place] tel:[phone] [facility] No Information 0 3-200 7 Singh Pelletier. [address] [place], [facility], . tel:[phone] Office Consultation [facility], [address] [place] [address] [address], [place], [place], [address], [place] tel:[phone] [facility] No Information 9200 7 Singh Pelletier. [address] [place], [facility], [place]. tel:[phone] Referring Provider: Murray Winters, [address] [place], [address]. tel:[phone] [facility], [address], [place], [place], [address], [place] tel:[phone] [place] [address] No Information 8-200 7 Francine Serrano. [address] [facility] , [address], [place], [facility], [place]. tel:[phone] [facility], [address], [place], [place], [address], [place] tel:[phone] [facility] No Information 7-200 7 Juany Barajas. [address], [place], [facility], [place]. tel:[phone] Family History Family Member Type Diagnosis Age At Onset No Information Payers Payer name Insurance type Covered republican ID Ashley patiño(s) No Information Social History [...]
--- NOTE | ~2025-03-02 | CT_ITS ---
EXAMINATION: CT abdomen pelvis wo con DATE: 03/02/2025 18:43 INDICATION: Right flank pain TECHNIQUE: Computed tomography (CT) of the abdomen and pelvis was performed without intravenous contrast. The dose-length product was 226.90 mGy-cm. Automated exposure control and iterative reconstruction technique were employed. COMPARISON: CT dated 11/04/2021 FINDINGS: Lung bases are unremarkable. The liver, spleen, pancreas, adrenal glands and kidneys are unremarkable. There is colonic diverticulosis without evidence for diverticulitis. Normal appendix. No renal/ureteral stones. No free air. There is levoscoliosis of the lumbar spine. Moderate lumbar spondylosis. No significant vascular abnormality. No lymphadenopathy. IMPRESSION: 1. No acute abdominal abnormality. Reviewed, dictated and finalized at location O.
--- OUTSIDE RECORDS SUMMARY | 2025-03-02 18:03 | XMS_ITS | Clinical Summary ---
Author Organization [facility] Address [address] 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
--- OUTSIDE RECORDS SUMMARY | 2025-03-02 18:03 | XMS_ITS | Encounter Summary ---
Author Organization [facility] Address 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
--- OUTSIDE RECORDS SUMMARY | 2025-03-02 18:03 | XMS_ITS | Encounter Summary ---
Author Organization [facility] Address 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
--- OUTSIDE RECORDS SUMMARY | 2025-03-02 18:03 | XMS_ITS | Clinical Summary ---
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
[2025-03-02 18:30] VITALS: BP 136/85; PULSE 87; RESP 16; TEMP 37.1; O2SAT 98
--- NOTE | 2025-03-02 18:37 | ED_ITS ---
HPI - Abdominal Pain General Chief Complaint: Abdominal Pain <Domingo Barth APRN - Last Filed: 03/02/25 18:38> Stated Complaint: R SIDE PAIN,BLOATING X1D <Domingo Barth APRN - Last Filed: 03/02/25 18:38> Time Seen by Provider: 03/02/25 18:57 <Domingo Barth APRN - Last Filed: 03/02/25 18:38> Focused HPI: 84-year-old female presents to the ER complaining of right flank pain that started 2 days ago. Patient states starts in her right flank that radiates into her right lower quadrant. Patient reports some nausea but denies any vomiting or diarrhea. Patient denies any fevers, body aches, chills, chest pain, shortness of breath, urinary symptoms, blood in urine, or any other symptoms. Patient went into her PCP office and took a urine said it was normal and sent here for further evaluation. GENERAL: Well-appearing, well-nourished, and in no acute distress. HEAD: Normocephalic, atraumatic. CHEST: Clear to auscultation. ?No respiratory distress. HEART: Regular rate and rhythm.? NEURO: ?Alert and oriented x3. GI: Nontender and nondistended, flat, soft. Bowel sounds are active. No rebound tenderness. No CVA tenderness. No guarding or rigidity. Patient screened in triage and initial orders placed.? ?Additional care and disposition to be based upon?diagnostic testing and treatment. <Domingo Barth APRN - Last Filed: 03/02/25 18:38> History of Present Illness HPI narrative: agree with HPI <Cody Navarro MD - Last Filed: 03/02/25 22:33> Related Data Home Medications: Home Medications ?Medication ?Instructions ?Recorded ?Confirmed ?Last Taken ?Type bimatoprost 0.01 % eye drops 1 drop ophthalmic (eye) H S 09/08/19 11/23/24 05/21/21 History (Silvano) cholecalciferol (vitamin D3) 10 10 mcg PO DAILY 11/23/24 05/18/21 History mcg (400 unit) tablet acetaminophen 325 mg capsule 325 mg PO ONCE PRN Pain 1 07/21/20 11/23/24 05/19/21 History (Tylenol) brimonidine 0.2 %-timolol 0.5 % 1 drp ophthalmic (eye) 06/25/22 11/23/24 Unknown History eye drops atorvastatin 40 mg tablet mg PO 09/19/23 11/23/24 Unkn own History bevacizumab 25 mg/mL intravenous intravitreal 09/19/23 11/23/24 Unknown History solution (Avastin) vitamins A,C,I-[id number] 4,296 1 cap PO BID 04/14/24 11/23/24 Unknown History mcg-226 mg-90 mg capsule (PreserVision AREDS) <Domingo Barth APRN - Last Filed: 03/02/25 18:38> Allergies/Adverse Reactions: Allergies Allergy/AdvReac Type Severity Reaction Status Date / Time procaine Allergy Severe Difficulty Verified 01/19/25 13:53 Breathing-Novocain ciprofloxacin Allergy Intermediate crawled Verified 01/19/25 13:53 out of skin metronidazole Allergy Intermediate JETTERY, Verified 01/19/25 13:53 WANTS TO CRAW OUT OF HER SKIN Quinolones Allergy Intermediate JETTERY, Verified 01/19/25 13:53 WANTS TO CRAWL OUT OF HER SKIN Sulfa (Sulfonamide Allergy Intermediate Hives Verified 01/19/25 13:53 Antibiotics) lidocaine AdvReac Severe lost Verified 01/19/25 13:53 feeling <Domingo Barth APRN - Last Filed: 03/02/25 18:38> Review of Systems 2 Review of Systems: Gen.: Denies fevers or chills Eyes: Denies eye pain or visual change ENT: Denies congestion Respiratory: Denies shortness of breath or cough CV: Denies chest pain or palpitations GI: As per HPI denies burning, urgency, frequency or hematuria Musculoskeletal: Denies back pain or muscle pain Neuro: Denies numbness, tingling, weakness or focal weakness Skin: Denies rash Except as documented, all other systems reviewed and negative <Cody Navarro MD - Last Filed: 03/02/25 22:33> [facility] Past Medical History Medical History: Medical History Allergy to anesthetic Normal colonoscopy 12/03 Repeat 12/13 Allergy history, anesthetic Encounter for surgical aftercare following surgery on the skin and subcutaneous tissue GERD (gastroesophageal reflux disease) Infected sebaceous cyst of skin High blood cholesterol <Domingo Barth APRN - Last Filed: 03/02/25 18:38> Surgical History Surgical History: Surgical History History of excision of lesion Excision of skin lesion right posterior neck 05/21/21 History of laparoscopic cholecystectomy 11/29/19 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 Rodrigues lives at home with her and is independent in her daily activities. Her PCP is Dr. Trammell. 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 She designates her as her surrogate decision maker and would like to be a full code. Smoking status: Never smoker Second hand tobacco smoke exposure: No Alcohol intake: current Alcohol use details: Rare alcohol Substance use: never Substance use type: does not use Living arrangements: with family Occupation/Education: retired Gender identity (if verbalized by the patient): Female Sexual Orientation (if Verbalized by the Patient): Straight or Heterosexual Spiritual care concerns: No Agree to blood products: Yes <Domingo Barth APRN - Last Filed: 03/02/25 18:38> Exam 2 Narrative: APPEARANCE: No acute distress, nontoxic, resting in bed EYES: EOMI HEENT: Normocephalic, atraumatic, OMM RESPIRATORY: No respiratory distress Clear to auscultation bilaterally with no rhonchi wheezing or rales. CARDIOVASCULAR: Regular rate and rhythm without murmurs rubs or gallops. ABDOMINAL: Soft, nontender, nondistended, no rebound or guarding. MUSCULOSKELETAl: Moves all extremities. No clubbing, cyanosis or edema. Mild tenderness over the right lateral lower chest wall NEURO: Awake and alert. Following commands, speech normal, no focal deficits SKIN:: Warm, dry. No rashes lesions or abrasions PSYCHIATRIC: Normal affect/mood, <Cody Navarro MD - Last Filed: 03/02/25 22:33> Course Vital Signs Vital signs: Vital Signs Temperature 98.7 F 03/02/25 18:30 Pulse Rate 87 03/02/25 18:30 Respiratory Rate 16 03/02/25 18:30 Blood Pressure 136/85 03/02/25 18:30 Pulse Oximetry 98 03/02/25 18:30 Oxygen Delivery Room Air 03/02/25 18:30 Temperature 98.7 F 03/02/25 18:30 Pulse Rate 70 03/02/25 20:04 Respiratory Rate 18 03/02/25 20:04 Blood Pressure 129/69 03/02/25 20:04 Pulse Oximetry 100 03/02/25 20:04 Oxygen Delivery Room Air 03/02/25 18:30 <Domingo Barth APRN - Last Filed: 03/02/25 18:38> Vital Signs Temperature 98.7 F 03/02/25 18:30 Pulse Rate 87 03/02/25 18:30 Respiratory Rate 16 03/02/25 18:30 Blood Pressure 136/85 03/02/25 18:30 Pulse Oximetry 98 03/02/25 18:30 Oxygen Delivery Room Air 03/02/25 18:30 Temperature 98.7 F 03/02/25 18:30 Pulse Rate 70 03/02/25 20:04 Respiratory Rate 18 03/02/25 20:04 Blood Pressure 129/69 03/02/25 20:04 Pulse Oximetry 100 03/02/25 20:04 Oxygen Delivery Room Air 03/02/25 18:30 <Cody Navarro MD - Last Filed: 03/02/25 22:33> MDM - Abdominal Pain MDM Narrative Medical decision making narrative: 84-year-old female who presented to the ED for right flank pain. On initial evaluation, patient was in no acute distress, afebrile, hemodynamically stable. She did have mild tenderness to the right lateral lower chest wall no CVA tenderness. CBC and CMP significant abnormalities. UA clear. CT abdomen/pelvis showed no acute process. Suspect the patient a musculoskeletal strain. Patient was given Toradol. She was advised to take Tylenol at home. She has an appointment tomorrow with her PCP which I encouraged her to go to if her pain does improve overnight. Patient was agreeable to this plan. Given strict return precautions. <Cody aNvarro MD - Last Filed: 03/02/25 22:33> Differential Diagnosis Differential diagnosis: Likely abdominal pain, calculus of kidney, constipation and other (Musculoskeletal strain, UTI, pyelonephritis) <Cody Navarro MD - Last Filed: 03/02/25 22:33> Medical Records Attestation: I reviewed the patient's medical records. <Cody Navarro MD - Last Filed: 03/02/25 22:33> Lab Data Attestation: I reviewed the patient's lab results. <Cody Navarro MD - Last Filed: 03/02/25 22:33> Result diagrams: 03/02/25 19:32 03/02/25 19:32 <Domingo Barth APRN - Last Filed: 03/02/25 18:38> Labs: Lab Results 03/02/25 Range/Units 19:32 WBC 8.8 (4.5-10.0) K/mm3 RBC 4.93 (4.2-5.4) M/mm3 Hgb 14.6 (12.0-15.0) g/dL Hct 44.2 (37.0-47.0) % MCV 89.7 (80-100) fl MCH 29.6 (26-34) pg MCHC 33.0 (32-36) g/dl RDW 12.7 (11.5-14.5) % Plt Count 246 (150-375) k/mm3 MPV 9.7 (7.4-10.4) fl Immature Gran % (Auto) 0.2 (0-0.5) % Neut % (Auto) 76.5 H (45.5-73.1) % Lymph % (Auto) 14.4 L (18.3-44.2) % [place] % (Auto) 7.2 (2.6-8.5) % Eos % (Auto) 1.4 (0-4.4) % Baso % (Auto) 0.3 (0.2-1.2) % Lymph # (Auto) 1.26 (0.9-3.2) K/mm3 [place] # (Auto) 0.6 (0.1-0.6) K/mm3 Eos # (Auto) 0.1 (0-0.3) K/mm3 Baso # (Auto) 0.0 (0.0-0.1) K/mm3 Abs Immat Gran (auto) 0.02 (0.00-0.031) K/mm3 Absolute Neuts (auto) 6.7 (1.3-6.7) K/mm3 Absolute Nucleated RBC 0.000 (0.0-0.012) K/mm3 Nucleated RBC % 0.0 (0.0-0.2) % Sodium 137 (137-145) mmol/L Potassium 3.7 (3.4-5.0) mmol/L Chloride 100 (98-107) mmol/L Carbon Dioxide 29 (22-30) mmol/L Anion Gap 8 (4-12) mmol/L BUN 15 (7-17) mg/dL Creatinine 0.69 L (0.7-1.0) mg/dL Estim Creat Clear Calc 45 ml/min Estimated GFR > 60 (59 - ) Glucose 116 H (65-110) mg/dL Calcium 9.3 (8.4-10.2) mg/dL Total Bilirubin 0.5 (0.2-1.3) mg/dL AST 48 H (14-36) U/L ALT 31 (6-35) U/L Alkaline Phosphatase 74 (38-126) U/L Total Protein 7.4 (6.3-8.2) g/dL Albumin 4.4 (3.5-5.1) g/dL Lipase 272 (23-300) U/L Urine Color Yellow (Yellow) Urine Appearance Clear (Clear) Urine pH 6.5 (5.0-9.0) Ur Specific [place] 1.009 (1.001-1.035) Urine Protein Negative (Negative) mg/dL Urine Glucose (UA) Negative (Negative) mg/dL Urine Ketones Negative (Negative) mg/dL Ur Blood (Man) Negative (Negative) Urine Nitrate Negative (Negative) Urine Bilirubin Negative (Negative) Urine Urobilinogen 1.0 (<2.0) mg/dL Leukocyte Esterase Rfl Trace H (Negative) ADRIAN/UL Urine RBC 0-2 (0-2) /hpf Urine WBC 0-5 (0-3) /hpf Ur Squamous Epith Cells None seen (Few) /hpf Urine Bacteria None seen /hpf Urine Casts 0-2 <Domingo Barth, HEALTH UNIT SUPERVISOR - Last Filed: 03/02/25 18:38> Lab Results 03/02/25 Range/Units 19:32 WBC 8.8 (4.5-10.0) K/mm3 RBC 4.93 (4.2-5.4) M/mm3 Hgb 14.6 (12.0-15.0) g/dL Hct 44.2 (37.0-47.0) % MCV 89.7 (80-100) fl MCH 29.6 (26-34) pg MCHC 33.0 (32-36) g/dl RDW 12.7 (11.5-14.5) % Plt Count 246 (150-375) k/mm3 MPV 9.7 (7.4-10.4) fl Immature Gran % (Auto) 0.2 (0-0.5) % Neut % (Auto) 76.5 H (45.5-73.1) % Lymph % (Auto) 14.4 L (18.3-44.2) % [place] % (Auto) 7.2 (2.6-8.5) % Eos % (Auto) 1.4 (0-4.4) % Baso % (Auto) 0.3 (0.2-1.2) % Lymph # (Auto) 1.26 (0.9-3.2) K/mm3 [place] # (Auto) 0.6 (0.1-0.6) K/mm3 Eos # (Auto) 0.1 (0-0.3) K/mm3 Baso # (Auto) 0.0 (0.0-0.1) K/mm3 Abs Immat Gran (auto) 0.02 (0.00-0.031) K/mm3 Absolute Neuts (auto) 6.7 (1.3-6.7) K/mm3 Absolute Nucleated RBC 0.000 (0.0-0.012) K/mm3 Nucleated RBC % 0.0 (0.0-0.2) % Sodium 137 (137-145) mmol/L Potassium 3.7 (3.4-5.0) mmol/L Chloride 100 (98-107) mmol/L Carbon Dioxide 29 (22-30) mmol/L Anion Gap 8 (4-12) mmol/L BUN 15 (7-17) mg/dL Creatinine 0.69 L (0.7-1.0) mg/dL Estim Creat Clear Calc 45 ml/min Estimated GFR > 60 (59 - ) Glucose 116 H (65-110) mg/dL Calcium 9.3 (8.4-10.2) mg/dL Total Bilirubin 0.5 (0.2-1.3) mg/dL AST 48 H (14-36) U/L ALT 31 (6-35) U/L Alkaline Phosphatase 74 (38-126) U/L Total Protein 7.4 (6.3-8.2) g/dL Albumin 4.4 (3.5-5.1) g/dL Lipase 272 (23-300) U/L Urine Color Yellow (Yellow) Urine Appearance Clear (Clear) Urine pH 6.5 (5.0-9.0) Ur Specific [place] 1.009 (1.001-1.035) Urine Protein Negative (Negative) mg/dL Urine Glucose (UA) Negative (Negative) mg/dL Urine Ketones Negative (Negative) mg/dL Ur Blood (Man) Negative (Negative) Urine Nitrate Negative (Negative) Urine Bilirubin Negative (Negative) Urine Urobilinogen 1.0 (<2.0) mg/dL Leukocyte Esterase Rfl Trace H (Negative) ADRIAN/UL Urine RBC 0-2 (0-2) /hpf Urine WBC 0-5 (0-3) /hpf Ur Squamous Epith Cells None seen (Few) /hpf Urine Bacteria None seen /hpf Urine Casts 0-2 <Cody Navarro MD - Last Filed: 03/02/25 22:33> Imaging Data Radiologist's impression: ITS Impressions Abdomen/Pelvis CT 03/02/25 18:43 IMPRESSION: 1. No acute abdominal abnormality. <Domingo Barth APRN - Last Filed: 03/02/25 18:38> ITS Impressions Abdomen/Pelvis CT 03/02/25 18:43 IMPRESSION: 1. No acute abdominal abnormality. Impressions Abdomen/Pelvis CT 03/02/25 18:43 IMPRESSION: 1. No acute abdominal abnormality. <Cody Navarro MD - Last Filed: 03/02/25 22:33> Discharge Plan Discharge Clinical Impression: Acute flank pain <TAMIKO Villarreal Last Filed: 03/02/25 18:38> Patient Disposition: Home <Domingo Barth APRN - Last Filed: 03/02/25 18:38> Condition: Stable <Domingo Barth APRN - Last Filed: 03/02/25 18:38> Instructions: Antibiotic Form, Flank Pain (ED) <Domingo Barth APRN - Last Filed: 03/02/25 18:38> Additional Instructions: You may take Tylenol for your pain. Follow-up with your PCP tomorrow if her pain does not improve, otherwise follow-up in a week or so. Return to the ED for any new or worsening symptoms. <Domingo Barth APRN - Last Filed: 03/02/25 18:38> Patient Language: Welsh <Domingo Barth APRN - Last Filed: 03/02/25 18:38> Prescriptions: No Action brimonidine-timolol 0.2-0.5 % drops 1 drp ophthalmic (eye) atorvastatin 40 mg tablet PO Avastin 25 mg/mL solution intravitreal Lum[place] 0.01 % drops 1 drop EACH EYE HS PreserVision AREDS 4,296 mcg-226 mg-90 mg capsule 1 cap PO BID cholecalciferol (vitamin D3) 10 mcg (400 unit) Tablet 10 mcg PO DAILY acetaminophen [Tylenol] 325 mg Capsule 325 mg PO ONCE PRN (Reason: Pain) losartan 50 mg tablet 50 mg PO QAM Qty: 90 1RF hydrochlorothiazide 12.5 mg tablet See Rx Instructions .ROUTE .COMPLEX Qty: 90 1RF Dose Instruction: Take 1 tablet by mouth once daily Rx Instructions: Take 1 tablet by mouth once daily amlodipine 5 mg tablet 5 mg PO DAILY Qty: 20 0RF <Domingo Barth APRN - Last Filed: 03/02/25 18:38> Follow-up/Referrals: Bola Rodney MD [Primary Care Provider, Family Practice] <Domingo Barth APRN - Last Filed: 03/02/25 18:38>
--- OUTSIDE RECORDS SUMMARY | 2025-03-02 19:30 | XMS_ITS | Encounter Summary ---
Author Organization [facility] Address 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
--- OUTSIDE RECORDS SUMMARY | 2025-03-02 19:30 | XMS_ITS | Encounter Summary ---
Author Organization [facility] Address 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
--- OUTSIDE RECORDS SUMMARY | 2025-03-02 19:30 | XMS_ITS | Clinical Summary ---
Author Organization [facility] [address] Address [address] [place] [address] Care Team Providers Care Kiln Mechanic Name Role Phone Bola Rodney MD Primary Care Provider [phone] Allergies Active Allergy Reactions Criticality Noted Date [...] on file Legal Sex Female 8:[address] Gender Identity Not on file Sexual Orientation [...] 09/14/2020, 08/18/2020 Influenza Vaccine (#1) 2025 Insurance [facility] MEDICARE ADVANTAGE [facility] MEDICARE ADVANTAGE Care Teams Kiln Mechanic Relationship Specialty Start Date End Date Bola Rodney MD PCP - General Family Medicine 04/11/22
--- OUTSIDE RECORDS SUMMARY | 2025-03-02 19:30 | XMS_ITS | Clinical Summary ---
Author Organization [facility] Address [address] 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
[2025-03-02 19:38] LABS: Hematocrit 44.2 % (37.0-47.0); Hemoglobin 14.6 g/dL (12.0-15.0); Immature Granulocyte Percent A 0.2 % (0-0.5); Lymphocytes Absolute Auto 1.26 K/mm3 (0.9-3.2); Mean Corpuscular HGB Conc 33.0 g/dl (32-36); Mean Corpuscular Hemoglobin 29.6 pg (26-34); Mean Corpuscular Volume 89.7 fl (80-100); Nucleated Red Blood Cells Absolute Auto 0.000 K/mm3 (0.0-0.012); Nucleated Red Blood Cells Perc 0.0 % (0.0-0.2); Platelet Count Result 246 k/mm3 (150-375); Red Blood Count 4.93 M/mm3 (4.2-5.4); White Blood Count 8.8 K/mm3 (4.5-10.0)
[2025-03-02 19:45] LABS: Add Urine Microscopic? YES; Appearance Urine Clear (Clear); Glucose Urine UA Negative (Negative); Leukocyte Esterase Ur Trace LEU/UL (Negative); Nitrate Urine Negative (Negative); Non Pathogenic Casts 0-2; Specific Grav Ur 1.009 (1.001-1.035)
[2025-03-02 19:49] LABS: Alanine Aminotransferase 31 U/L (6-35); Albumin Level 4.4 g/dL (3.5-5.1); Alkaline Phosphatase 74 U/L (38-126); Anion Gap 8 mmol/L (4-12); Aspartate Amino Transferase 48 U/L (14-36); Bilirubin,Total 0.5 mg/dL (0.2-1.3); Blood Urea Nitrogen 15 mg/dL (7-17); Calcium 9.3 mg/dL (8.4-10.2); Carbon Dioxide 29 mmol/L (22-30); Chloride 100 mmol/L (98-107); Estimated CRCL calculation 45 ml/min; Estimated Glomerular Filt Rate > 60; Glucose 116 mg/dL (65-110); Lipase 272 U/L (23-300); Potassium 3.7 mmol/L (3.4-5.0); Sodium 137 mmol/L (137-145); Total Protein 7.4 g/dL (6.3-8.2)
[2025-03-02 20:04] VITALS: BP 129/69; PULSE 70; RESP 18; O2SAT 100
[2025-03-02] MEDS: KETOROLAC 15 MG/ML VIAL (*BKC) IV PUSH (20:13)
== END 2025-03-02 20:36 | disposition home or self-care (01) ==
PROVIDERS: Emergency Provider Student in an Organized Health Care Education/Training Program; PCP Family Medicine
DX: R10.31 Right lower quadrant pain (principal); E78.00 Pure hypercholesterolemia, unspecified; K21.9 Gastro-esophageal reflux disease without esophagitis; Z90.49 Acquired absence of other specified parts of digestive tract; Z79.899 Other long term (current) drug therapy
CPT/HCPCS: 36415; 74176; 80053; 81001; 83690; 85025; 96374; 99284; J1885

== ENCOUNTER 2025-05-18 12:53 | Emergency (ER) | payer MEDICARE, SELFPAY ==
--- OUTSIDE RECORDS SUMMARY | 2025-05-18 13:01 | XMS_ITS | Clinical Summary ---
Author Organization [facility] [place] [address] Address [address] [place] [address] Care Team Providers Care Fabric Separator Operator Name Role Phone Bola Rodney MD Primary Care Provider [phone] Allergies Active Allergy Reactions Criticality Noted Date [...] mg/mL injection Shots in right eye Active diclofenac DR (VOLTAREN) 75 mg EC tablet Take 1 tablet (75 mg total) by mouth 2 (two) times a day as needed for pain 03/25/2025 Active atorvastatin (LIPITOR) 40 mg tablet Take 1 tablet by mouth once daily 90 tablet 3 04/12/2025 Active Active Problems Problem Noted Date Diagnosed Date Nonrheumatic aortic valve stenosis 03/16/2024 Mixed hyperlipidemia 07/12/2021 Atypical chest pain 03/30/2021 Essential hypertension, benign 03/30/2021 Chronic fatigue 03/30/2021 Encounters Date Type Department Care Team Description 04/07/2025 Results Follow-Up [facility] Medical Group Cardiology at [address] [place] [phone] Lupillo Oquendo MD NM MPI SPECT (Rest and/or Stress) Multiple Studies 04/07/2025 Telephone [facility] Cardiology [address] [place] [address] [place] [phone] Lupillo Oquendo MD 04/04/2025 9:15 AM CDT Ancillary Procedure [facility] Cardiology [address] [place] [address] [place] [phone] Atypical chest pain 04/01/2025 8:30 AM CDT Office Visit [facility] Cardiology [address] [place] [address] [place] [phone] Lupillo Oquendo MD Essential hypertension, benign (Primary Dx); Mixed hyperlipidemia; Nonrheumatic aortic valve stenosis; Atypical chest pain from Last 3 Months Surgical History Surgery [...] on file 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 Gender Identity Not on file Sexual Orientation Not on file Last Filed Vital Signs Vital Sign Reading Time Taken Comments Blood Pressure 120/66 04/01/2025 8:29 AM CDT Pulse 61 04/01/2025 8:29 AM CDT Temperature - - Respiratory Rate - - Oxygen Saturation 98% 04/01/2025 8:29 AM CDT Inhaled Oxygen Concentration - - Weight 71.2 kg (157 lb) 04/01/2025 8:29 AM CDT Height 152.4 cm (5') 04/01/2025 8:29 AM CDT Body Mass Index 30.66 04/01/2025 8:29 AM CDT Plan of Treatment Health Maintenance [...] 10/12/2020 09/14/2020, 08/18/2020 Influenza Vaccine (#1) 2025 Procedures Procedure Name Priority Date/Time Associated Diagnosis Comments NM MPI SPECT (REST AND/OR STRESS) MULTIPLE STUDIES Schedule Routine, Read Routine (OP Routine) 04/04/2025 10:40 AM CDT Atypical chest pain from Last 3 Months Results * NM MPI SPECT (Rest and/or Stress) Multiple Studies (04/04/2025 10:40 AM CDT) Anatomical Region Laterality Modality Body N/A Nuclear Medicine 04/04/2025 8:37 AM CDT Narrative 04/04/2025 4:[address] [facility] Medical Group Cardiology [address], [place] [address] [address] [facility] [address], [place] [address] [address] [place] [address] P:[phone] P:[phone] MPI Imaging Report Patient Name: ISAAC KERR S : 1940 Study Date: 04/04/2025 8:37:18 AM Gender: F Tech: [facility] Location: [facility] Provider: LUPILLO OQUENDO Height(Cm): 152.4 BSA: Weight(Kg): 71.2 BMI: 30.66 Order Provider: LUPILLO OQUENDO PHYSICIAN: Primary Care Physician: Dr. Rodney. [facility] Physician: Jesse Oquendo M.D. Stress Supervision: Bola Sepulveda M.D.,F.A.C.C. Stress Interpreting Physician: Bola Sepulveda M.D.,F.A.C.CCarin Image Interpreting Physician: Bola Sepulveda M.D.,F.A.C.C. PROCEDURES: Pharmacologic SPECT Report: Myocardial perfusion imaging with Tc99M Sestamibi SPECT at rest and stress post regadenoson (Lexiscan) infusion. INDICATIONS: Back Pain, Hypertension, High Cholesterol, and R07.89 Other chest pain. FINDINGS: Procedural Findings: One day rest/stress was used. Tc99m Sestamibi injected IV at rest was 10.9 millicuries 32.4 millicuries of Tc99M Sestamibi injected IV during Lexiscan stress Lexiscan 0.4mg administered IV over 10 seconds. Patient had no symptoms during stress test. Baseline heart rate was 65 BPM Maximum Heart Rate Achieved was: 95 BPM Baseline blood pressure was 158/80 mmHg Post Stress Blood Pressure was 128/68 mmHg Termination: Protocol complete. Resting ECG: Sinus rhythm, normal ECG. Post ECG: No diagnostic ST changes. Perfusion Findings: Normal perfusion imaging. No definite fixed or reversible defects. A TID of 0.93 was automatically calculated. LV Function: Global left ventricular function is normal. Left ventricular ejection fraction is 77 %. CONCLUSIONS: Sinus rhythm, normal ECG. No diagnostic ST changes. Global left ventricular function is normal. Left ventricular ejection fraction is 77 %. Normal perfusion imaging. No definite fixed or reversible defects. A TID of 0.93 was automatically calculated. Electronically Signed By: Bola Sepulveda MD, [facility] 04/04/2025 4:19:18 PM CDT Electronically Signed By: Bola Sepulveda MD, [facility] 04/04/2025 4:19:18 PM CDT Procedure Note Bola Sepulveda MD - 04/04/2025 [facility] Medical Group Cardiology [address] [facility] [address] [id number] [address] [facility] [address], [address] [address] [address] [place] [address] P:[phone] P:[phone] MPI Imaging Report Patient Name: ISAAC KRER S : 1940 Study Date: 04/04/2025 8:37:18 AM Gender: F Tech: [facility] Location: [facility] Provider: LUPILLO OQUENDO Height(Cm): 152.4 BSA: Weight(Kg): 71.2 BMI: 30.66 Order Provider: LUPILLO OQUENDO PHYSICIAN: Primary Care Physician: Dr. Rodney. [facility] Physician: Jesse Oquendo M.D. Stress Supervision: Bola Sepulveda M.D.,MargotACarinCCarinCCarin Stress Interpreting Physician: Bloa Sepulveda M.D.,MargotACarinCCarinCCarin Image Interpreting Physician: Bola Sepulveda M.D.,Daniel.A.C.C. PROCEDURES: Pharmacologic SPECT Report: Myocardial perfusion imaging with Tc99M Sestamibi SPECT at rest and stresspost regadenoson (Lexiscan) infusion. INDICATIONS: Back Pain, Hypertension, High Cholesterol, and R07.89 Other chest pain. FINDINGS: Procedural Findings: One day rest/stress was used. Tc99m Sestamibi injected IV at rest was 10.9 millicuries 32.4 millicuries of Tc99M Sestamibi injected IV during Lexiscan stress Lexiscan 0.4mg administered IV over 10 seconds. Patient had no symptoms during stress test. Baseline heart rate was 65 BPM Maximum Heart Rate Achieved was: 95 BPM Baseline blood pressure was 158/80 mmHg Post Stress Blood Pressure was 128/68 mmHg Termination: Protocol complete. Resting ECG: Sinus rhythm, normal ECG. Post ECG: No diagnostic ST changes. Perfusion Findings: Normal perfusion imaging. No definite fixed or reversible defects. A TIDof 0.93 was automatically calculated. LV Function: Global left ventricular function is normal. Left ventricular ejectionfraction is 77 %. CONCLUSIONS: Sinus rhythm, normal ECG. No diagnostic ST changes. Global left ventricular function is normal. Left ventricular ejectionfraction is 77 %. Normal perfusion imaging. No definite fixed or reversible defects. A TIDof 0.93 was automatically calculated. Electronically Signed By: Bola Sepulveda MD, [facility] 04/04/2025 4:19:18 PM CDT Electronically Signed By: Bola Sepulveda MD, [facility] 04/04/2025 4:19:18 PM CDT Lupillo Oquendo MD [facility] [place] PROCEDURES Final R esult from Last 3 Months Insurance [facility] MEDICARE ADVANTAGE [facility] MEDICARE ADVANTAGE Care Teams Fabric Separator Operator Relationship Specialty Start Date End Date Bola Rodney MD PCP - General Family Medicine 04/11/22
--- OUTSIDE RECORDS SUMMARY | 2025-05-18 13:01 | XMS_ITS | Encounter Summary ---
Author Organization [facility] Address 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
--- OUTSIDE RECORDS SUMMARY | 2025-05-18 13:01 | XMS_ITS | Encounter Summary ---
Author Organization [facility] Address 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
--- OUTSIDE RECORDS SUMMARY | 2025-05-18 13:01 | XMS_ITS | Clinical Summary ---
Author Organization [facility] Address [address] 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
[2025-05-18 13:03] VITALS: BP 138/78; PULSE 73; RESP 16; TEMP 37.1; O2SAT 99
--- NOTE | 2025-05-18 13:44 | ED_ITS ---
HPI - Wound/Laceration General Chief Complaint: Wound/Laceration Stated Complaint: fall Time Seen by Provider: 05/18/25 13:10 Source: patient, family (Daughter) and RN notes reviewed Mode of arrival: ambulatory Limitations: no limitations History of Present Illness HPI narrative: 84-year-old female patient presents today complaining of a laceration to her right 5th finger that was sustained just prior to arrival. Patient was lifting a trash can meant for leaves when she fell into the trash can, lacerating her finger. She also has a minor skin tear to right elbow. She is not up-to-date on her tetanus vaccine. Denies numbness or tingling. Of note, patient is anaphylactically allergic to lidocaine. Related Data Home Medications ?Medication ?Instructions ?Recorded ?Confirmed ?Last Taken ?Type bimatoprost 0.01 % eye drops 1 drop ophthalmic (eye) H S 09/08/19 04/13/25 05/21/21 History (Lumigan) cholecalciferol (vitamin D3) 10 10 mcg PO DAILY 04/13/25 05/18/21 History mcg (400 unit) tablet acetaminophen 325 mg capsule 325 mg PO ONCE PRN Pain 1 07/21/20 04/13/25 05/19/21 History (Tylenol) brimonidine 0.2 %-timolol 0.5 % 1 drp ophthalmic (eye) 06/25/22 04/13/25 Unknown History eye drops atorvastatin 40 mg tablet mg PO 09/19/23 04/13/25 Unkn own History bevacizumab 25 mg/mL intravenous intravitreal 09/19/23 04/13/25 Unknown History solution (Avastin) vitamins A,C,Z-utip-cekxbb 4,296 1 cap PO BID 04/14/24 04/13/25 Unknown History mcg-226 mg-90 mg capsule (PreserVision AREDS) Allergies Allergy/AdvReac Type Severity Reaction Status Date / Time lidocaine Allergy Severe Anaphylaxis Verified 05/18/25 13:45 procaine Allergy Severe Difficulty Verified 05/18/25 13:02 Breathing-Novocain Sulfa (Sulfonamide Allergy Intermediate Hives Verified 05/18/25 13:02 Antibiotics) ciprofloxacin AdvReac Intermediate crawled Verified 05/18/25 13:02 out of skin metronidazole AdvReac Intermediate JETTERY, Verified 05/18/25 13:02 WANTS TO CRAW OUT OF HER SKIN Quinolones AdvReac Intermediate JETTERY, Verified 05/18/25 13:02 WANTS TO CRAWL OUT OF HER SKIN PMFSH Past Medical History Medical History Allergy to anesthetic Normal colonoscopy 12/03 Repeat 12/13 Allergy history, anesthetic Encounter for surgical aftercare following surgery on the skin and subcutaneous tissue GERD (gastroesophageal reflux disease) Infected sebaceous cyst of skin High blood cholesterol Surgical History Surgical History History of excision of lesion Excision of skin lesion right posterior neck 05/21/21 History of laparoscopic cholecystectomy 11/29/19 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 Rodrigues lives at home with her and is independent in her daily activities. Her PCP is Dr. Trammell. 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 She designates her as her surrogate decision maker and would like to be a full code. Smoking status: Never smoker Second hand tobacco smoke exposure: No Alcohol intake: current Alcohol use details: Rare alcohol Substance use: never Substance use type: does not use Living arrangements: with family Occupation/Education: retired Gender identity (if verbalized by the patient): Female Sexual Orientation (if Verbalized by the Patient): Straight or Heterosexual Spiritual care concerns: No Agree to blood products: Yes Comments At time of signature, I have reviewed and agree with nursing past medical, surgical, social and family history unless otherwise noted. Please see nursing chart for further information. There is no relevant family history pertinent to the presenting complaint Exam Narrative: GENERAL: Well-appearing, well-nourished, and in no acute distress. HEAD: Normocephalic, atraumatic. EYES: EOMI. No redness or drainage. Conjunctivae normal. ENT: Mucous membranes pink and moist. NECK: Normal AROM. CHEST: No respiratory distress. EXTREMITIES: Right 5th finger: Irregular flap laceration measuring approximately 3 cm to the dorsum of the right middle and proximal phalanx. Upon inspection, extensor tendon appears intact. Distal sensation intact. Capillary refill normal. Full active range of motion of the finger against resistance. Mild active bleeding. Right elbow: 1.5 cm superficial skin tear to the olecranon process. No surrounding erythema or edema. Full elbow AROM. SKIN: Warm, dry, no rash. Capillary refill normal. Normal skin turgor. NEURO: No focal deficits. Alert and oriented x3. Gait steady. PSYCH: Normal affect. No signs of depression or anxiety. Course Course Level of Care: Express Care Visit Vital Signs Vital signs: Vital Signs Temperature 98.7 F 05/18/25 13:03 Pulse Rate 73 05/18/25 13:03 Respiratory Rate 16 05/18/25 13:03 Blood Pressure 138/78 05/18/25 13:03 Pulse Oximetry 99 05/18/25 13:03 Oxygen Delivery Room Air 05/18/25 13:03 Temperature 98.7 F 05/18/25 13:03 Pulse Rate 73 05/18/25 13:03 Respiratory Rate 16 05/18/25 13:03 Blood Pressure 138/78 05/18/25 13:03 Pulse Oximetry 99 05/18/25 13:03 Oxygen Delivery Room Air 05/18/25 13:03 Reviewed Procedures Laceration Laceration 1: Date: 05/18/25 Time: 13:45 Site: hand Side (If applicable): right Size (cm): 3 Description: irregular Depth: simple, single layer Local Anesthetic: none Pre-repair: wound explored and irrigated extensively ====== Skin Level ====== Skin layer closed with: dermabond and steri strips ====== Subcutaneous Layer ====== ====== Muscle Layer ====== ====== Tendon Layer ====== Dressing: Splint applied. MDM - Wound/Laceration MDM Narrative Medical decision making narrative: 84-year-old female patient presents today complaining of a laceration to her right 5th finger that was sustained just prior to arrival. Patient was lifting a trash can meant for leaves when she fell into the trash can, lacerating her finger. She also has a minor skin tear to right elbow. She is not up-to-date on her tetanus vaccine. Denies numbness or tingling. Of note, patient is anaphylactically allergic to lidocaine. Upon exam, Right 5th finger: Irregular flap laceration measuring approximately 3 cm to the dorsum of the right middle and proximal phalanx. Upon inspection, extensor tendon appears intact. Distal sensation intact. Capillary refill normal. Full active range of motion of the finger against resistance. Mild active bleeding. Right elbow: 1.5 cm superficial skin tear to the olecranon process. No surrounding erythema or edema. Full elbow AROM. Since patient has severe allergy to lidocaine, a repair of the finger laceration with sutures cannot be performed. Wound was irrigated under pressure with NS. Hemostasis achieved with direct pressure. Wound closed with loose approximation with steri strips and glue. Splint applied for protection and immobilization. Elbow superficial skin tear was cleansed with wound cleanser and dressed with large bandaid. Care instructions discussed with patient and daughter. Patient will be placed on a 5 day course of cephalexin to prevent infection. Tetanus shot was updated today. Patient agrees with plan. Vital signs stable. Anticipatory guidance given. Differential Diagnosis Differential diagnosis: Likely laceration, abrasion and avulsion of skin Critical Care Time Critical Care Time Critical Care Time: No Discharge Plan Discharge Clinical Impression: Finger laceration, Skin tear of right elbow without complication, Fall Patient Disposition: Home Condition: Stable Instructions: Antibiotic Form, Finger Laceration (ED), Skin Adhesive Care (ED) Additional Instructions: Your finger laceration has been repaired with Steri-Strips and glue. This will fall off on its own in approximately 1 week. Please wear the splint for protection as well. Monitor for any signs of infection such as redness, swelling, increased pain, or drainage, and see your doctor or go to the ER if you note any. Please take the Keflex as prescribed until gone. Take Tylenol for pain if needed. Patient Language: Kyrgyz Prescriptions: New cephalexin 500 mg capsule 500 mg PO Q6H 5 Days Qty: 20 0RF No Action brimonidine-timolol 0.2-0.5 % drops 1 drp ophthalmic (eye) atorvastatin 40 mg tablet PO Avastin 25 mg/mL solution intravitreal Lumigan 0.01 % drops 1 drop EACH EYE HS PreserVision AREDS 4,296 mcg-226 mg-90 mg capsule 1 cap PO BID cholecalciferol (vitamin D3) 10 mcg (400 unit) Tablet 10 mcg PO DAILY acetaminophen [Tylenol] 325 mg Capsule 325 mg PO ONCE PRN (Reason: Pain) hydrochlorothiazide 12.5 mg tablet See Rx Instructions .ROUTE .COMPLEX Qty: 90 1RF Dose Instruction: Take 1 tablet by mouth once daily Rx Instructions: Take 1 tablet by mouth once daily losartan 50 mg tablet 50 mg PO QAM Qty: 90 1RF diclofenac sodium 75 mg tablet,delayed release (DR/EC) 75 mg PO BID PRN (Reason: pain) Qty: 60 5RF Follow-up/Referrals: Bola Rodney MD [Primary Care Provider, Family Practice] Time of Disposition: 13:49
== END 2025-05-18 13:56 | disposition home or self-care (01) ==
PROVIDERS: Emergency Provider Nurse Practitioner; PCP Family Medicine
DX: S61.216A Laceration without foreign body of right little finger without damage to nail, initial encounter (principal); W17.89XA Other fall from one level to another, initial encounter
CPT/HCPCS: 12002; 99213; G0463

== ENCOUNTER 2025-05-20 12:41 | Emergency (ER) | payer MEDICARE, SELFPAY ==
--- OUTSIDE RECORDS SUMMARY | 2025-05-20 12:45 | XMS_ITS | Encounter Summary ---
Author Organization [facility] Address 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
--- OUTSIDE RECORDS SUMMARY | 2025-05-20 12:45 | XMS_ITS | Clinical Summary ---
Author Organization [facility] [address] Address [address] [place] [address] Care Team Providers Care Laborer Filter Plant Name Role Phone Bola Rodney MD Primary Care Provider [phone] Allergies Active Allergy Reactions Criticality Noted Date [...] Department Care Team Description 04/07/2025 Results Follow-Up [facility] Medical Group Cardiology at [address] [place] [phone] Lupillo Oquendo MD NM MPI SPECT (Rest and/or Stress) Multiple Studies 04/07/2025 Telephone [facility] Cardiology [address] [place] [address] [place] [phone] Lupillo Oquendo MD 04/04/2025 9:15 AM CDT Ancillary Procedure [facility] Cardiology [address] [place] [address] [place] [phone] Atypical chest pain 04/01/2025 8:30 AM CDT Office Visit [facility] Cardiology [address] [place] [address] [place] [phone] Lupillo Oquendo MD Essential hypertension, benign (Primary [...] on file 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 Gender Identity Not on file Sexual Orientation [...] AM CDT Narrative 04/04/2025 4:46 PM CDT [facility] Medical Group Cardiology [address], [place] [address] [address] [facility] [address], [place] [address] [place] [address] P:[phone] P:[phone] MPI Imaging Report Patient Name: ISAAC KERR S : 1940 Study Date: 04/04/2025 8:37:18 AM Gender: F Tech: [facility] Location: [facility] Provider: LUPILLO OQUENDO Height(Cm): 152.4 BSA: Weight(Kg): 71.2 BMI: 30.66 Order Provider: LUPILLO OQUENDO PHYSICIAN: Primary Care Physician: Dr. Rodney. [facility] [place]ician: Jesse Oquendo M.D. Stress [...] calculated. Electronically Signed By: Bola Sepulveda MD, [facility] 04/04/2025 4:19:18 PM CDT Electronically Signed By: Bola Sepulveda MD, [facility] 04/04/2025 4:19:18 PM CDT Procedure Note Bola Sepulveda MD - 04/04/2025 [facility] Medical Group Cardiology [address] [facility] [address] [phone] [facility] [address], [address], [place] [address] [address] [place] [address] P:[phone] P:[phone] MPI Imaging Report Patient Name: ISAAC KERR S : 1940 Study Date: 04/04/2025 8:37:18 AM Gender: F Tech: [facility] Location: [facility] Provider: LUPILLO OQUENDO Height(Cm): 152.4 BSA: Weight(Kg): 71.2 BMI: 30.66 Order Provider: LUPILLO OQUENDO PHYSICIAN: Primary Care Physician: Dr. Rodney. [facility] [place]ician: Jesse Oquendo M.D. Stress Supervision: Bola Sepulveda M.D.,MargotACarinCCarinCCarin Stress Interpreting Physician: Bola Sepulveda M.D.,MargotACarinCCarinCCarin Image Interpreting Physician: Bola Sepulveda [...] calculated. Electronically Signed By: Bola Sepulveda MD, [facility] 04/04/2025 4:19:18 PM CDT Electronically Signed By: Bola Sepulveda MD, [facility] 04/04/2025 4:19:18 PM CDT Lupillo Oquendo MD [facility] PROCEDURES Final R esult from Last 3 Months Insurance [facility] MEDICARE ADVANTAGE [facility] MEDICARE ADVANTAGE Care Teams Laborer Filter Plant Relationship Specialty Start Date End Date Bola Rodney MD PCP - General Family Medicine 04/11/22
--- OUTSIDE RECORDS SUMMARY | 2025-05-20 12:45 | XMS_ITS | Encounter Summary ---
Author Organization [facility] Address 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
--- OUTSIDE RECORDS SUMMARY | 2025-05-20 12:45 | XMS_ITS | Clinical Summary ---
Author Organization [facility] Address [address] 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
[2025-05-20 12:52] VITALS: BP 130/77; PULSE 69; RESP 18; TEMP 37.2; O2SAT 97
--- NOTE | 2025-05-20 12:55 | ED.SKABFB ---
HPI - Skin/Abscess/Foreign Bdy General Chief complaint: Skin/Abscess/Foreign Body Stated complaint: Splint Stuck on finger Source: patient Mode of arrival: ambulatory Limitations: no limitations History of Present Illness HPI narrative: This is a 84 y/o female that presents today complaining of a laceration to her right 5th finger that was sustained 05/18/25 while lifting a trash can meant for leaves when she fell into the trash can, lacerating her finger and a minor skin tear to right elbow. Patient was seen and treated, she had steri-strips and dermabond applied to her 5th finger. patient had splint applied and wrapped. Instructed to wash area the next day and pat dry. However, they found the splint is glued to the steri strips. they have tried to get it off without removing the strips or causing any damage underneath. MD complaint: laceration Onset (ago): day(s) (2) Tetanus up to date: yes Location: R hand Severity: mild Severity scale (1-10): 1 Pain Consistency: constant Relieving factors: none Exacerbating factors: immobilization Context: none Associated symptoms: denies other symptoms Treatments prior to arrival: none Related Data Home Medications ?Medication ?Instructions ?Recorded ?Confirmed ?Last Taken ?Type bimatoprost 0.01 % eye drops 1 drop ophthalmic (eye) HS 09/08/19 04/13/25 05/21/21 History (Lumigan) cholecalciferol (vitamin D3) 10 10 mcg PO DAILY 11/22/19 04/13/25 05/18/21 History mcg (400 unit) tablet acetaminophen 325 mg capsule 325 mg PO ONCE PRN Pain 05/21/21 04/13/25 05/19/21 History (Tylenol) brimonidine 0.2 %-timolol 0.5 % 1 drp ophthalmic (eye) 06/25/22 04/13/25 Unknown History eye drops atorvastatin 40 mg tablet mg PO 09/19/23 04/13/25 Unknown History bevacizumab 25 mg/mL intravenous intravitreal 09/19/23 04/13/25 Unknown History solution (Avastin) vitamins A,C,F-ajgb-fiwgoi 4,296 1 cap PO BID 04/14/24 04/13/25 Unknown History mcg-226 mg-90 mg capsule (PreserVision AREDS) Allergies Allergy/AdvReac Type Severity Reaction Status Date / Time lidocaine Allergy Severe Anaphylaxis Verified 05/20/25 12:53 procaine Allergy Severe Difficulty Verified 05/20/25 12:53 Breathing-Novocain Sulfa (Sulfonamide Allergy Intermediate Hives Verified 05/20/25 12:53 Antibiotics) ciprofloxacin AdvReac Intermediate crawled Verified 05/20/25 12:53 out of skin metronidazole AdvReac Intermediate JETTERY, Verified 05/20/25 12:53 WANTS TO CRAW OUT OF HER SKIN Quinolones AdvReac Intermediate JETTERY, Verified 05/20/25 12:53 WANTS TO CRAWL OUT OF HER SKIN Review of Systems Review of Systems: All systems reviewed & are unremarkable except as noted in HPI and below PMFSH Past Medical History Medical History Allergy to anesthetic Normal colonoscopy 12/03 Repeat 12/13 Allergy history, anesthetic Encounter for surgical aftercare following surgery on the skin and subcutaneous tissue GERD (gastroesophageal reflux disease) Infected sebaceous cyst of skin High blood cholesterol Surgical History Surgical History History of excision of lesion Excision of skin lesion right posterior neck 05/21/21 History of laparoscopic cholecystectomy 11/29/19 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 Rodrigues lives at home with her and is independent in her daily activities. Her PCP is Dr. Trammell. 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 She designates her as her surrogate decision maker and would like to be a full code. Smoking status: Never smoker Second hand tobacco smoke exposure: No Alcohol intake: current Alcohol use details: Rare alcohol Substance use: never Substance use type: does not use Living arrangements: with family Occupation/Education: retired Gender identity (if verbalized by the patient): Female Sexual Orientation (if Verbalized by the Patient): Straight or Heterosexual Spiritual care concerns: No Agree to blood products: Yes Exam Const: General: healthy appearing Nutritional Appearance: well nourished Orientation/consciousness: patient oriented x3 Limitations: no limitations HENMT: Head: normal to inspection Ears: external ears normal Face/Nose/Sinus: Normal external nose present Face and sinus: normal facial exam Mouth: Yes Normal oral and palatal mucosa present Teeth and gingiva: dentition normal Throat: posterior oropharynx normal Eyes: Conjunctivae: conjunctivae normal Pupils: Equal, round and reactive pupils present EOM: EOMs intact bilaterally Neck: Neck: normal visual inspection Resp: Effort & Inspection: normal respiratory effort Auscultation: clear to auscultation bilaterally Cardio: Rate: regular rate Rhythm: regular rhythm GI: Auscultation: normal bowel sounds Back/Spine/Pelvis: Back: no CVA tenderness Skin: General skin exam: normal color Rashes: no rashes Other: intact steri strips to the right fifth finger, no erythema, edema or discharge. ROM intact, sensation intact. Neuro: General: patient oriented x3 Cranial nerves: Yes Nystagmus not present Speech: normal speech Extrem: General: normal to inspection Psych: Mental Status: mental status grossly normal Affect: normal affect Attitude: cooperative Course Course Emergency Course: This is a 84 y/o female that presents today complaining of a laceration to her right 5th finger that was sustained 05/18/25 while lifting a trash can meant for leaves when she fell into the trash can, lacerating her finger and a minor skin tear to right elbow. Patient was seen and treated, she had steri-strips and dermabond applied to her 5th finger. patient had splint applied and wrapped. Instructed to wash area the next day and pat dry. However, they found the splint is glued to the steri strips. they have tried to get it off without removing the strips or causing any damage underneath. examined the splint and removed Coban. Noted the lateral side of splint was attached with Dermabond. Splint was successfully removed without any patient concern or complaint. Finger was washed with soap and water and Steri-Strips were padded dry. Thin layer of triple antibiotic ointment was placed on the abraded area distal anterior and distal to the Steri-Strips. Instructed patient on in bandaging, and bandage was placed. Educated on returning to using the splint however with concern of prolonged use of contractures. Educated her to continue to move the fingers often as possible. Only use splint when risk of injury to the Steri-Strips. To no longer use after 48 hours today. Answered all her questions to her satisfaction she is agreeable to this plan. educated patient to keep area clean and dry, steri-strips will fall off in the next 10-14 days, wash daily - pat dry as instructed. Triple antibiotic ointment to the abrased areas. keep covered when risk of soiling possible. continue antibiotic as previously prescribed, splint only as needed. do not want to risk contractures of the finger. Follow-up with primary doctor in next 2-3 days for further evaluation exam. return to the emergency department or urgent care with any worrisome sign or symptom. Level of Care: Express Care Visit Vital Signs Vital signs: Vital Signs Temperature 98.9 F 05/20/25 12:52 Pulse Rate 69 05/20/25 12:52 Respiratory Rate 18 05/20/25 12:52 Blood Pressure 130/77 05/20/25 12:52 Pulse Oximetry 97 05/20/25 12:52 Oxygen Delivery Room Air 05/20/25 12:52 Temperature 98.9 F 05/20/25 12:52 Pulse Rate 69 05/20/25 12:52 Respiratory Rate 18 05/20/25 12:52 Blood Pressure 130/77 05/20/25 12:52 Pulse Oximetry 97 05/20/25 12:52 Oxygen Delivery Room Air 05/20/25 12:52 MDM - Skin/Abscess/Foreign Bdy MDM Narrative Medical decision making narrative: This is a 84 y/o female that presents today complaining of a laceration to her right 5th finger that was sustained 05/18/25 while lifting a trash can meant for leaves when she fell into the trash can, lacerating her finger and a minor skin tear to right elbow. Patient was seen and treated, she had steri-strips and dermabond applied to her 5th finger. patient had splint applied and wrapped. Instructed to wash area the next day and pat dry. However, they found the splint is glued to the steri strips. they have tried to get it off without removing the strips or causing any damage underneath. examined the splint and removed Coban. Noted the lateral side of splint was attached with Dermabond. Splint was successfully removed without any patient concern or complaint. Finger was washed with soap and water and Steri-Strips were padded dry. Thin layer of triple antibiotic ointment was placed on the abraded area distal anterior and distal to the Steri-Strips. Instructed patient on in bandaging, and bandage was placed. Educated on returning to using the splint however with concern of prolonged use of contractures. Educated her to continue to move the fingers often as possible. Only use splint when risk of injury to the Steri-Strips. To no longer use after 48 hours today. Answered all her questions to her satisfaction she is agreeable to this plan. educated patient to keep area clean and dry, steri-strips will fall off in the next 10-14 days, wash daily - pat dry as instructed. Triple antibiotic ointment to the abrased areas. keep covered when risk of soiling possible. continue antibiotic as previously prescribed, splint only as needed. do not want to risk contractures of the finger. Follow-up with primary doctor in next 2-3 days for further evaluation exam. return to the emergency department or urgent care with any worrisome sign or symptom. Differential Diagnosis Differential diagnosis: Likely other (laceration healing, splint malfunction) Medical Records Attestation: I reviewed the patient's medical records. Discharge Plan Discharge Clinical Impression: Laceration of finger Qualifiers: Encounter type: subsequent encounter Finger: little finger Damage to nail status: without damage Foreign body presence: without foreign body Laterality: right Qualified Code(s): S61.216D - Laceration without foreign body of right little finger without damage to nail, subsequent encounter Patient Disposition: Home Condition: Stable Instructions: Antibiotic Form Additional Instructions: keep area clean and dry steri-strips will fall off in the next 10-14 days. wash daily - pat dry as instructed. Triple antibiotic ointment to the abrased areas. keep covered when risk of soiling possible. continue antibiotic as previously prescribed splint only as needed. do not want to risk contractures of the finger. Follow-up with primary doctor in next 2-3 days for further evaluation exam return to the emergency department or urgent care with any worrisome sign or symptom Patient Language: Stateless Prescriptions: No Action cephalexin 500 mg capsule 500 mg PO Q6H 5 Days Qty: 20 0RF brimonidine-timolol 0.2-0.5 % drops 1 drp ophthalmic (eye) atorvastatin 40 mg tablet PO Avastin 25 mg/mL solution intravitreal Lumigan 0.01 % drops 1 drop EACH EYE HS PreserVision AREDS 4,296 mcg-226 mg-90 mg capsule 1 cap PO BID cholecalciferol (vitamin D3) 10 mcg (400 unit) Tablet 10 mcg PO DAILY acetaminophen [Tylenol] 325 mg Capsule 325 mg PO ONCE PRN (Reason: Pain) hydrochlorothiazide 12.5 mg tablet See Rx Instructions .ROUTE .COMPLEX Qty: 90 1RF Dose Instruction: Take 1 tablet by mouth once daily Rx Instructions: Take 1 tablet by mouth once daily losartan 50 mg tablet 50 mg PO QAM Qty: 90 1RF diclofenac sodium 75 mg tablet,delayed release (DR/EC) 75 mg PO BID PRN (Reason: pain) Qty: 60 5RF Follow-up/Referrals: Bola Rodney MD [Primary Care Provider, Family Practice] Time of Disposition: 13:14
== END 2025-05-20 13:15 | disposition home or self-care (01) ==
PROVIDERS: Emergency Provider Nurse Practitioner Family; PCP Family Medicine
DX: S61.216A Laceration without foreign body of right little finger without damage to nail, initial encounter (principal); W19.XXXA Unspecified fall, initial encounter; Z46.89 Encounter for fitting and adjustment of other specified devices; E78.00 Pure hypercholesterolemia, unspecified; K21.9 Gastro-esophageal reflux disease without esophagitis
CPT/HCPCS: 99212; G0463

== ENCOUNTER 2025-05-25 16:10 | Outpatient (CLI) | payer MEDICARE, SELFPAY ==
--- NOTE | ~2025-05-25 | XR_ITS ---
EXAMINATION: XR hand RT min 3V, 05/25/2025 16:15 PAINTER ASSISTANT HISTORY: Pain in right finger(s), pain near thumb, fall last week COMPARISON: No comparisons available. Findings: No acute fracture or malalignment. 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 Soft tissues unremarkable. Impression: No acute fracture or malalignment. Reviewed, dictated and finalized at location P. TER ASSISTANT Impression: No acute fracture or malalignment.
== END 2025-05-25 16:11 | disposition home or self-care (01) ==
LOC: GOSHIMG 16:11
PROVIDERS: PCP Family Medicine; Visit Provider Nurse Practitioner Family
DX: M79.644 Pain in right finger(s) (principal)
CPT/HCPCS: 73130